=== PATIENT | female | born 1950 | race Caucasian/White ===

== ENCOUNTER → 2018-04-01 10:27 | Outpatient (CLI) | payer MEDICARE, OTHER, SELFPAY ==
--- NOTE | 2018-04-01 | DI.RAD.S_ITS ---
PROCEDURE: XR THORACIC SPINE 3V INDICATIONS: BACK PAIN TECHNIQUE: 2 views of the thoracic spine were acquired. COMPARISON: [facility], CT, CT CHEST ABDOMEN WITH CONTRAST, 06/23/2017, 16:14. FINDINGS: Bones: No fractures or dislocations. No suspicious bony lesions. 12 pairs of ribs are noted, and appear intact where visualized. A mild thoracolumbar junction compression fractures present, 25.5% height reduction when compared to the level immediately above. This appears located at T12. Soft tissues: No paravertebral stripe thickening. IMPRESSION: Central line from right sided approach appears in normal position. Surgical clips left hilar area. No osteolytic or blastic lesion is found over the thoracic spine. There is what appears to be a thoracolumbar junction compression fracture involving T12 which was not present during CT scanning 06/23/17, comprised of a redundantly inferior endplate impaction fracture, anterior 25.5% height reduction. Dictated by: Vasquez Craig M.D. on 04/01/2018 at 12:10 Approved by: Vasquez Craig M.D. on 04/01/2018 at 12:13
--- NOTE | 2018-04-01 | DI.RAD.S_ITS ---
PROCEDURE: XR LUMBAR SPINE 2-3V INDICATIONS: BACK PAIN TECHNIQUE: 3 views of the lumbar spine were acquired. COMPARISON: [facility], CT, ABDOMEN/PELVIS WITH CONTRAST, 12/05/2017, 12:15. [facility], CR, XR THORACIC SPINE 3V, 04/01/2018, 10:11. FINDINGS: Bones: 5 [id number] vertebrae are present. There is normal bony alignment. No vertebral body compression fractures. T12 mild inferior endplate compression fracture is present better seen by thoracic spine plain film imaging today, without associated osteolytic or blastic suspicious bony lesions. Soft tissues: Overlying bowel gas pattern is normal. No suspicious soft tissue calcifications. IMPRESSION: Please refer to the thoracic spine report from today documenting a acute or subacute appearing mild inferior endplate T12 compression fracture. That can be seen by this study also, was not present on prior CT scanning from earlier this year 12/05/17, and is not associated with retropulsion of bone fragments into the spinal canal. Dictated by: Vasquez Craig M.D. on 04/01/2018 at 12:14 Approved by: Vasquez Craig M.D. on 04/01/2018 at 12:16
== END ==
PROVIDERS: Visit Provider Internal Medicine
DX: M54.9 Dorsalgia, unspecified (principal); M48.54XA Collapsed vertebra, not elsewhere classified, thoracic region, initial encounter for fracture
CPT/HCPCS: 72072; 72100

== ENCOUNTER 2018-05-27 02:56 | Emergency (ER) | payer MEDICARE, OTHER, SELFPAY ==
[2018-05-27 03:00] VITALS: BP 188/95; PULSE 100; RESP 24; O2SAT 99; BMI 17.6
[2018-05-27 03:15] VITALS: BP 188/95; PULSE 112; RESP 36
--- NOTE | 2018-05-27 03:37 | ED_ITS ---
HPI - Altered Mental Status General Chief Complaint: Anxiety Stated Complaint: Anxiety Time Seen by Provider: 05/27/18 03:36 Source: patient, family and EMS Mode of arrival: ambulatory Limitations: no limitations History of Present Illness HPI narrative: The patient has been feeling anxious. complaint: other ( Anxiety) Onset (ago): day(s) ( 2) Timing confirmed by: spouse Severity: moderate Consistency of symptoms: waxing and waning Context: history of similar presentation and other ( patient has a history of anxiety disorder. She denies alcohol or drug abuse, change in medication, trauma, recent fever, liver disease, or seizure disorder.) Associated symptoms: denies other symptoms Treatments prior to arrival: other ( None) Related Data Home Medications Medication Instructions Recorded Confirmed mometasone-formoterol [Dulera] 2 puff INH BID #0 07/04/07 montelukast [Singulair] 10 mg PO QDAY #0 07/04/07 acetaminophen 325 mg PO Q4HP PRN #0 12/03/17 diphenhydramine-acetaminophen 1 tab PO HSP PRN #0 12/03/17 [Tylenol PM Extra Strength] oxycodone 5 ml PO Q6HP PRN #0 12/03/17 pantoprazole [Protonix] 40 mg PO QDAY #0 12/03/17 Previous Rx's Medication Instructions Recorded azithromycin [Zithromax] 250 mg PO SEE INSTRUCTIONS #6 tab 12/03/17 loratadine [Claritin] 10 mg PO QDAY #30 tab 12/03/17 ondansetron [Zofran ODT] 4 mg SUBLINGUAL Q6HP PRN #20 odt 12/05/17 promethazine 25 mg PO Q6HP PRN #15 tab 12/05/17 Allergies Allergy/AdvReac Type Severity Reaction Status Date / Time simvastatin [SIMVASTATIN] AdvReac Unknown LEG Unverified 12/31/17 12:04 CRAMPING sulfamethoxazole AdvReac Unknown DIARRHEA Unverified 12/31/17 12:04 [From BACTRIM] trimethoprim [From BACTRIM] AdvReac Unknown DIARRHEA Unverified 12/31/17 12:04 Review of Systems Review of Systems All systems reviewed & are unremarkable except as noted in HPI and below Constitutional Denies chills, Denies fever(s), Denies lethargy and Denies weakness Eyes Denies change in vision, Denies eye discharge, Denies irritation and Denies loss of vision ENT Ears, Nose, Mouth, and Throat: Denies change in voice, Denies neck pain and Denies sore throat Cardiovascular Denies chest pain, Denies irregular heart rhythm, Denies lightheadedness, Denies palpitations, Denies dyspnea, Denies dyspnea on exertion and Denies orthopnea Respiratory Denies cough, Denies dyspnea, Denies dyspnea on exertion and Denies wheezing Gastrointestinal Gastrointestinal: Denies abdominal pain, Denies change in bowel habits, Denies diarrhea, Denies nausea and Denies vomiting Genitourinary Denies hematuria, Denies flank pain, Denies urinary incontinence and Denies urinary urgency Musculoskeletal Denies neck pain Integumentary/Breasts Denies pruritus, Denies erythema, Denies rash and Denies wounds Neurologic Denies confusion, Denies loss of vision and Denies weakness Psychiatric Denies anxiety, Denies confusion, Denies depression, Denies homicidal ideation and Denies suicidal ideation Endocrine Denies palpitations Hematologic/Lymphatic Denies easy bruising Allergic/Immunologic Denies wheezing Exam Initial Vital Signs Initial Vital Signs: Vital Signs Pulse Rate 100 H 05/27/18 03:00 Respiratory Rate 24 05/27/18 03:00 Blood Pressure 188/95 H 05/27/18 03:00 Pulse Oximetry 99 05/27/18 03:00 Const General: cooperative and well developed Nutritional Appearance: well nourished Orientation: alert, awake, oriented x3 and not confused [facility] Head: normocephalic and atraumatic Ears: external ears normal Nose: external nose normal and No nasal discharge Face and sinus: face symmetric and No dry mucous membranes Mouth: oral mucosae normal and moist mucous membranes Eyes General: appearance normal, both eyes and all related structures Eyelids: eyelids normal Conjunctivae: conjunctivae normal Sclera: sclerae normal Pupils: PERRL EOM: EOM intact bilaterally Neck Neck: normal visual inspection, trachea midline, No lymphadenopathy, No midline deformity and No JVD Lymphatic: No lymphedema Chest Chest: normal inspection of the chest Resp Effort & Inspection: normal respiratory effort, able to speak in complete sentences, no respiratory distress and no use of accessory muscles Auscultation: clear to auscultation bilaterally, no rales, no rhonchi and no wheezes Cardio Rate: regular rate Rhythm: regular rhythm Heart Sounds: no click, no gallops, no murmurs and no rubs Pulses: normal peripheral pulses GI Inspection: non-distended Palpation: soft, no hepatosplenomegaly, No guarding, No pulsatile mass and No tender Auscultation: normal bowel sounds Back/Spine/Pelvis Back: No CVA tenderness Cervical Spine: cervical ROM normal and No pain with cervical ROM Thoracic/Lumbar Spine: thoracic and lumbar spine normal to inspection Skin General: no rashes or lesions noted, No jaundice and No petechiae Neuro General: alert, oriented x3, gait normal and no focal motor deficits Speech: speech normal Extrem General: full ROM, no clubbing, cyanosis or edema, no pedal edema and no calf tenderness Psych Appearance: well kempt Mental Status: mental status grossly normal ( the patient is alert and oriented x3.) Mood: anxious mood Attitude: cooperative Thought Content: normal and suicidality Judgment: judgment good Course Hospital Course: Patient was treated symptomatically, and worked up for her sense of anxiety. Workup was negative, and no emergent cause of patient's symptoms was found. Orders Ordered: Discontinued Medications Sodium Chloride (Normal Saline 0.9%) 1,000 mls @ 1,000 mls/hr IV BOLUS ONE Stop: 05/27/18 04:43 Last Infusion: 05/27/18 05:30 Dose: 0 mls/hr Admin: 05/27/18 04:28 Dose: 1,000 mls/hr Lorazepam (Ativan) 1 mg IV NOW ONE Stop: 05/27/18 03:45 Last Admin: 05/27/18 04:27 Dose: 1 mg Metoprolol Tartrate (Lopressor) 50 mg PO NOW ONE Stop: 05/27/18 04:44 Last Admin: 05/27/18 05:45 Dose: 50 mg Ondansetron HCl (Zofran) 4 mg IV NOW ONE Stop: 05/27/18 03:45 Last Admin: 05/27/18 04:29 Dose: 4 mg MDM - Altered Mental Status Medical Records Attestation: I reviewed the patient's medical records. Lab Data Attestation: I reviewed the patient's lab results. Result diagrams: 05/27/18 03:50 05/27/18 03:50 Lab Results 05/27/18 05/27/18 05/27/18 Range/Units 03:50 03:50 04:08 WBC 10.9 (4.5-11.0) X10^3/uL RBC 3.77 L (4.0-5.2) X10^6/uL Hgb 11.9 L (12.0-16.0) g/dL Hct 35.4 L (36-46) % MCV 93.7 (80-100) fL MCH 31.5 (26-34) PG MCHC 33.6 (30-36) % RDW 15.0 H (11.6-14.8) % Plt Count 524 H (150-400) X10^3/uL Neut % (Auto) 88.4 H (50-75) % Lymph % (Auto) 3.8 L (25-40) % [place] % (Auto) 7.0 (3-14) % Eos % (Auto) 0.0 L (2-4) % Baso % (Auto) 0.8 (0-2) % Neut # (Auto) 9700 H (0328-7371) /uL Sodium 137 (137-145) mmol/L Potassium 3.3 L (3.4-5.1) mmol/L Chloride 98 (98-107) mmol/L Carbon Dioxide 24 (22-32) mmol/L BUN 22 H (7-17) mg/dL Creatinine 0.50 L (0.52-1.04) mg/dL Estimated GFR > 60.0 (>60) mL/min BUN/Creatinine Ratio 44.0 H (6-22) Glucose 201 H (80-110) mg/dL Calcium 9.8 (8.4-10.2) mg/dL Total Bilirubin 1.2 (0.2-1.3) mg/dL AST 31 (14-36) IU/L ALT 30 (9-52) IU/L Alkaline Phosphatase 213 H (38-126) U/L Total Protein 8.5 H (6.3-8.2) g/dL Albumin 4.6 (3.5-5.0) g/dL Globulin 3.9 (1.7-4.1) g/dL Albumin/Globulin Ratio 1.2 (1.0-2.8) Urine Color Yellow Urine Appearance Clear Urine pH 7.5 (4.5-8.0) Ur Specific [place] 1.020 (1.000-1.035) Urine Protein 2+ H (Negative) Urine Glucose (UA) Trace (Normal) g/dL Urine Ketones 2+ H (NEGATIVE) Urine Occult Blood Trace-lysed (Negative) Urine Nitrate Negative (Negative) Urine Bilirubin Negative (NEGATIVE) Urine Urobilinogen 0.2 (0.2) E.U./dL Ur Leukocyte Esterase Negative (NEGATIVE) Urine RBC None seen (0-5/HPF) Urine WBC 0-1/hpf (0-5/HPF) Ur Squamous Epith Cells 0-1 /hpf Urine Bacteria None seen (None) Ur Culture Indicated? Cult not indicated Micro UA Comment Not Reportable Discharge Plan Departure Patient Disposition: Home Clinical Impression: Acute anxiety, Nausea & vomiting Discharge Date/Time: 05/27/18 06:45 Interventions: ED Discharge Assessment Last Done: 05/27/18 06:45 Instructions: DI for Anxiety -- Adult Prescriptions: No Action montelukast [Singulair] 10 MG tablet 10 mg PO QDAY Qty: 0 RF: 0 mometasone-formoterol [Dulera] 200 MCG/5 MCG HFA aerosol inhaler 2 puff INH BID Qty: 0 RF: 0 acetaminophen 325 MG tablet 325 mg PO Q4HP PRNQty: 0 RF: 0 oxycodone 5 MG/5 ML solution 5 ml PO Q6HP PRNQty: 0 RF: 0 pantoprazole [Protonix] 40 MG tablet,delayed release (DR/EC) 40 mg PO QDAY Qty: 0 RF: 0 diphenhydramine-acetaminophen [Tylenol PM Extra Strength] 500 MG/25 MG tablet 1 tab PO HSP PRNQty: 0 RF: 0 azithromycin [Zithromax] 250 MG tablet 250 mg PO SEE INSTRUCTIONS Qty: 6 RF: 0 loratadine [Claritin] 10 MG tablet 10 mg PO QDAY Qty: 30 RF: 0 promethazine 25 MG tablet 25 mg PO Q6HP PRNQty: 15 RF: 0 ondansetron [Zofran ODT] 4 MG tablet,disintegrating 4 mg Sublingual Q6HP PRNQty: 20 RF: 0 Referrals: Jefe Saeed MD [Primary Care Provider] - (Call for a follow-up appointment.)
[2018-05-27 04:06] LABS: Add Manual Diff / Slide Review NO; Basophils Percent Auto 0.8 % (0-2); Hematocrit 35.4 % (36-46); Hemoglobin 11.9 g/dL (12.0-16.0); Lymphocytes Percent Auto 3.8 % (25-40); Mean Corpuscular HGB Conc 33.6 % (30-36); Mean Corpuscular Hemoglobin 31.5 PG (26-34); Mean Corpuscular Volume 93.7 fL (80-100); Neutrophils Absolute Auto 9700 /uL (3000-5900); Neutrophils Percent Auto 88.4 % (50-75); Platelet Count 524 X10^3/uL (150-400); Red Blood Cell Count 3.77 X10^6/uL (4.0-5.2); White Blood Cell Count 10.9 X10^3/uL (4.5-11.0)
[2018-05-27 04:13] LABS: Alanine Aminotransferase 30 IU/L (9-52); Albumin 4.6 g/dL (3.5-5.0); Albumin Globulin Ratio 1.2 (1.0-2.8); Alkaline Phosphatase 213 U/L (38-126); Aspartate Aminotransferase 31 IU/L (14-36); Bilirubin Total 1.2 mg/dL (0.2-1.3); Blood Urea Nitrogen 22 mg/dL (7-17); Calcium 9.8 mg/dL (8.4-10.2); Carbon Dioxide 24 mmol/L (22-32); Chloride 98 mmol/L (98-107); Estimated Glomerular Filt Rate > 60.0 mL/min (>60); Globulin 3.9 g/dL (1.7-4.1); Glucose 201 mg/dL (80-110); HEMOLYSIS < 15 (0-50); Potassium 3.3 mmol/L (3.4-5.1); Sodium 137 mmol/L (137-145); Total Protein 8.5 g/dL (6.3-8.2)
[2018-05-27 04:14] LABS: Bacteria Urine None Seen; RBC Urine None Seen (0-5/HPF)
[2018-05-27 04:15] VITALS: BP 181/96; PULSE 109; RESP 32; TEMP 36.6
[2018-05-27 04:15] LABS: Appearance Urine UA CLEAR; Bilirubin Urine UA NEGATIVE (NEGATIVE); Color Urine UA YELLOW; Glucose Urine UA TRACE g/dL (Normal); Ketones Urine UA 2+ (NEGATIVE); Leukocyte Esterase Urine UA NEGATIVE (NEGATIVE); Nitrite Urine UA Negative (Negative); Occult Blood Urine UA TRACE-LYSED (Negative); Protein Urine UA 2+ (Negative); Urobilinogen Urine UA 0.2 E.U./dL (0.2); pH Urine UA 7.5 (4.5-8.0)
[2018-05-27] MEDS: LORazepam 2 MG/ML SYRINGE 1 MG IV (04:27)
[2018-05-27] MEDS: SODIUM CHLORIDE 0.9% 1,000 ML 1000 ML IV (04:28)
[2018-05-27] MEDS: ONDANSETRON 4 MG/2 ML INJ IV (04:29)
[2018-05-27 04:30] LABS: Culture Indicated Urine Cult Not Indicated; Squamous Epithelial Cell Urine 0-1 /HPF; WBC Urine 0-1/HPF (0-5/HPF)
[2018-05-27 05:15] VITALS: BP 186/69; PULSE 114; RESP 25
[2018-05-27] MEDS: METOPROLOL 50 MG TABLET PO (05:45)
[2018-05-27 06:15] VITALS: BP 182/77; PULSE 106; RESP 24; TEMP 37.1; O2SAT 99
--- NOTE | 2018-05-27 07:41 | PC.NURSE ---
port to right chest, heparinized and dc'd per protocol.
--- NOTE | 2018-05-27 07:46 | PC.NURSE ---
)500 pt. to be discharged. This RN is uncertain what to pack the portacath with so will look up micaela
== END 2018-05-27 06:45 | disposition home or self-care (01) ==
PROVIDERS: Emergency Provider Emergency Medicine; Family Provider Internal Medicine; PCP Internal Medicine
DX: F41.9 Anxiety disorder, unspecified (principal); R11.2 Nausea with vomiting, unspecified
CPT/HCPCS: 80053; 81001; 85025; 96361; 96374; 96375; 99283; 99284; J2060; J2405

== ENCOUNTER → 2018-06-24 08:11 | Outpatient (CLI) | payer MEDICARE, OTHER, SELFPAY ==
--- NOTE | 2018-06-24 | DI.RAD.S_ITS ---
This blank DEXA report has been sent in error by the PACS system. The correct and complete report will be forthcoming in 1-2 days. Thank you for your patience and understanding. Dictated by: Yolie Hurst MD, PhD on 06/24/2018 at 11:13 Approved by: Yolie Hurst MD, PhD on 06/24/2018 at 11:13
[2018-06-24 08:55] LABS: Cholesterol 199 mg/dL (140-199); HDL Cholesterol 71 mg/dL (40-60); LDL Cholesterol Calculated 92 mg/dL (<100); Triglycerides 181 mg/dL (35-150)
[2018-06-24 09:13] LABS: Vitamin D 25 Hydroxy (D3) 37.5 ng/mL (30.0-100.0)
== END ==
PROVIDERS: PCP Internal Medicine; Visit Provider Internal Medicine
DX: Z00.00 Encounter for general adult medical examination without abnormal findings (principal); M81.0 Age-related osteoporosis without current pathological fracture; Z78.0 Asymptomatic menopausal state; Z90.722 Acquired absence of ovaries, bilateral; Z87.891 Personal history of nicotine dependence
CPT/HCPCS: 36415; 77080; 80061; 82306

== ENCOUNTER 2018-07-02 22:09 | Inpatient (IN) | payer MEDICARE, OTHER, SELFPAY ==
--- NOTE | 2018-07-02 22:15 | DI.CT.S_ITS ---
PROCEDURE: CT HEAD/BRAIN WO CON INDICATIONS: seizure x 2, no prior history, recent vomiting and diarrhea TECHNIQUE: Noncontrast 4.5 mm thick angled axial sections acquired from the foramen magnum to the vertex, with coronal and sagittal reformats. For radiation dose reduction, the following was used: automated exposure control, adjustment of mA and/or kV according to patient size. COMPARISON: None. FINDINGS: Image quality: Excellent. CSF spaces: Basal cisterns are patent. No extra-axial fluid collections. The ventricles are symmetric in size and shape. Brain: No intracranial bleeds or masses. There is cerebral volume loss for age, with resultant ventricular and sulcal prominence. There are periventricular and deep white matter chronic small vessel ischemic changes. There is intracranial internal carotid artery atherosclerosis. 1.5 cm lytic focus seen within the right frontoparietal calvarium image 20 series 3 is nonspecific in the absence of any relevant prior studies. Sinuses: Visualized sinuses and mastoids are clear. IMPRESSION: No acute intracranial process. Lytic focus with involving the right frontoparietal skull. Technically, this lesion is indeterminate and cannot exclude metastatic possibilities. As clinically warranted, further evaluation with bone scan could be performed. Dictated by: Woo Gonzáles M.D. on 07/03/2018 at 7:21 Approved by: Woo Gonzáles M.D. on 07/03/2018 at 7:23
--- NOTE | 2018-07-02 22:34 | DI.RAD.S_ITS ---
PROCEDURE: XR CHEST 1V INDICATIONS: seizure TECHNIQUE: One view of the chest was acquired. COMPARISON: [facility], , CHEST 1 VIEW, 12/05/2017, 10:59. FINDINGS: Surgical changes and devices: Left chest port with the tip projecting in the lower SVC. Vertebroplasty noted. Surgical clips projecting the base of neck. Lungs and pleura: No pleural effusions or pneumothorax. No acute consolidation. There is scattered subsegmental atelectasis and/or scarring Mediastinum: Mediastinal contours appear normal. Heart size is normal. Bones and chest wall: No suspicious bony lesions. Overlying soft tissues appear unremarkable. IMPRESSION: No acute disease. Dictated by: Woo Gonzáles M.D. on 07/03/2018 at 7:20 Approved by: Woo Gonzáles M.D. on 07/03/2018 at 7:21
--- NOTE | 2018-07-02 22:34 | DI.RAD.S_ITS ---
PROCEDURE: XR ABDOMEN 1V INDICATIONS: vomiting, seizure TECHNIQUE: One view of the abdomen acquired. COMPARISON: [facility], CR, XR CHEST 1V, 07/02/2018, 22:38. [facility], CR, ABDOMEN 1 VIEW, 12/03/2017, 10:07. FINDINGS: Surgical changes and devices: Vertebroplasty. Bowel: Bowel gas pattern is normal. There are presumed multiple skin folds projecting over the chest abdomen and pelvis. Mild stool Soft tissues: No suspicious abdominal calcifications. Visualized solid organ contours appear normal in size. Bones: No suspicious bony lesions. Discogenic changes and lateral curvature of the spine. Bilateral hip joint degeneration. IMPRESSION: No evidence of bowel obstruction. Mild stool Dictated by: Woo Gonzáles M.D. on 07/03/2018 at 8:05 Approved by: Woo Gonzáles M.D. on 07/03/2018 at 8:08
--- NOTE | 2018-07-02 22:36 | ED.SEIZURE ---
HPI - Seizure General Chief Complaint: Weakness Stated Complaint: N/V x2 days with weakness Time Seen by Provider: 07/02/18 22:23 Source: family () and EMS Mode of arrival: EMS Limitations: altered mental status History of Present Illness HPI Narrative: This is a 67-year-old female who comes to the emergency department with complaint of seizure-like activity. Patient's states that he was at home he noticed that she sort of locked up Um and then started shaking and a generalized sort of manner which he describes is of tonic colonic. Patient symptoms lasted about 20-30 seconds and then afterwards she was ?peaceful?. He states that she did not regain her normal level of consciousness. EMS states that EN route she had a 2nd event describes similar symptoms. Patient has had 1 similar episode in the past which the states she was actually seen and she had a concussion and injuries secondary to this. This was in [place] and he states that they were told it was not a seizure but that she passed out. This was in April. Patient has been having persistent vomiting over the last several days and he states she has had difficulty keeping any fluids down. She has also had some episodes of diarrhea. Patient's states that this is quite common and she has a history of esophageal cancer with subsequent surgeries. She is currently in remission but still is quite thin. He states that this evening and for the last several days she has been very anxious which seems to usually precipitated vomiting. This evening she became sort of very upset and he describes is incoherent. He states she was walking and moving without any difficulty he did notice any slurred speech but that she was not making any sense and was not very rational. He describes these events is happening fairly frequently and relates some to anxiety and mental health issues. He states she has not complained of any headaches or vision changes recently. She has not been complaining of any chest pain or shortness of breath or any abdominal pain. He states that she has not had any urinary changes that he is aware of. He states that she has been told that her blood pressure and heart rate can sometimes get very high particularly when she is upset she does not have any cardiac history that he is aware of. She did have a kyphoplasty on the last year for a fracture that occurred after coughing. Patient received 5 mg of Versed EN route with EMS. Related Data Home Medications Medication Instructions Recorded Confirmed montelukast [Singulair] 10 mg PO QDAY #0 07/04/07 07/02/18 acetaminophen 325 mg PO Q4HP PRN #0 12/03/17 07/02/18 diphenhydramine-acetaminophen 1 tab PO HSP PRN #0 12/03/17 07/02/18 [Tylenol PM Extra Strength] pantoprazole [Protonix] 40 mg PO QDAY #0 12/03/17 07/02/18 escitalopram oxalate 20 mg PO BID 07/02/18 07/02/18 hydrocodone-acetaminophen 1 tab PO Q4-6H PRN 07/02/18 07/02/18 lorazepam 1 mg PO QD-BID PRN 07/02/18 07/02/18 Previous Rx's Medication Instructions Recorded ondansetron [Zofran ODT] 4 mg SUBLINGUAL Q6HP PRN #20 odt 12/05/17 Allergies Allergy/AdvReac Type Severity Reaction Status Date / Time simvastatin [SIMVASTATIN] AdvReac Unknown LEG Verified 07/02/18 23:26 CRAMPING sulfamethoxazole AdvReac Unknown DIARRHEA Verified 07/02/18 23:26 [From BACTRIM] trimethoprim [From BACTRIM] AdvReac Unknown DIARRHEA Verified 07/02/18 23:26 Review of Systems Review of Systems All systems reviewed & are unremarkable except as noted in HPI and below and unobtainable due to mental status PFSH Medical History Upper GI bleed (Acute) Post surgical complication (Acute) Acute anxiety (Inactive) Surgical History History of esophageal surgery (Acute) History of kyphoplasty (Acute) No pertinent past surgical history (Acute) Social History household members: spouse housing: house Smoking Status: Never smoker Comment: no etoh x 1 year 2nd esophageal cancer/treatment. No illicit. Exam Narrative Exam Narrative: GEN: Thin female, patient is responsive to sternal rub, patient appears to be in moderate distress. HEENT: Atraumatic, pupils are 4 mm bilaterally and equal round reactive to light, extraocular movements are intact, nares are clear, TMs are clear with no fluid, there is no conjunctival pallor. Throat is clear without any exudates, erythema, tonsillar enlargement or uvular deviation HEART: Regular rate and rhythm without murmur, clicks, rubs. LUNGS:Lungs clear to auscultation, no wheezes, rales, crackles, chest moves symmetrically ABD:bowel sounds normal, soft, non-tender, no guarding, rebound, rigidity, no masses noted, no hepatosplenomegaly :No CVA tenderness MSCL: Non-tender NEURO:CN 2-12 intact, sensation normal, reflexes 2/4 upper and lower extremities. Patient altered unable to do full neuro exam. Initial Vital Signs Initial Vital Signs: Vital Signs Pulse Rate 120 H 07/02/18 23:11 Respiratory Rate 20 07/02/18 23:11 Blood Pressure 150/90 H 07/02/18 23:11 Pulse Oximetry 97 07/02/18 23:11 Scores GCS Shy coma scale eye opening: To pressure [place] coma scale verbal response: Confused [place] coma scale motor response: Localising [place] coma scale total score: 11 Citation: GCS on initial arrival is 11. GCS @ 12:45am is E=4, V=4, M=6 for total=14 Course Orders Ordered: ED Orders 07/02/18 22:14 EKG-12 Lead Stat 07/02/18 22:15 CT head/brain wo con Stat 07/02/18 22:21 Complete Blood Count AUTO DIFF Stat Comprehensive Metabolic Panel Stat Ethanol (ETOH) Stat Magnesium Stat Prolactin Stat 07/02/18 22:34 XR abdomen 1V Stat XR chest 1V Stat 07/03/18 00:45 Urinalysis Sreen (Dip Only) Stat Urine Culture Stat Urine Drug Screen, Rapid Stat Urine Microscopic Stat Potassium Chloride 40 meq/ (Sodium Chloride) 520 mls @ 130 mls/hr IV NOW ONE Stop: 07/03/18 03:44 Last Infusion: 07/03/18 02:56 Dose: 130 mls/hr Admin: 07/03/18 00:10 Dose: 130 mls/hr Sodium Chloride (Normal Saline 0.9%) 1,000 mls @ 125 mls/hr IV CONT MIKEY Discontinued Medications Sodium Chloride (Normal Saline 0.9%) 1,000 mls @ 1,000 mls/hr IV BOLUS ONE Stop: 07/02/18 23:13 Last Admin: 07/02/18 22:37 Dose: 1,000 mls/hr Levetiracetam 1,000 mg/ Sodium (Chloride) 110 mls @ 440 mls/hr IV NOW ONE Stop: 07/03/18 02:01 Levetiracetam 1,000 mg/ Sodium (Chloride) 110 mls @ 440 mls/hr IV NOW ONE Stop: 07/03/18 02:51 Reevaluation(s) Reevaluation #1: Patient is able to tell me her name and some basic information, she still is somewhat confused. She is more alert. She has been cooperative here in the ED with us. Time: 12:45 Reevaluation #2: Patient continues to be increasingly alert although still confused. She has not had any additional seizure activity in the department. Time: 01:50 Consultations Consultation #1: Dr. Aceves at [facility] with Neurology. Recommends Keppra loading 1 gram then 750mg Q 12 hours as inpatient and then 750 mg p.o. Q 12 as outpatient. MRI recommended in am. EEG can be done outpatient. Time: 02:02 Consultation #2: Dr. Noyola accepts patient. Discussed her head CT, chest x-ray and abdominal x-ray. Lab findings. Patient has possibly some psychiatric illness as well or possibly dementia with some kind of intermittent confusion per the . She had 2 episodes witnessed seizure-like activity by initially and then 1 by EMS. Patient has not had any more seizure activity in the department. Patient has not received Keppra yet but has been ordered. Dr. Noyola asked that we do bridging orders Vital Signs - 8 hr 07/02/18 23:11 07/02/18 23:15 07/02/18 23:58 Pulse Rate 120 H 105 H 119 H Respiratory Rate 20 20 22 Blood Pressure [Left Arm] 150/90 H 69/43 L 190/106 H Pulse Oximetry 97 07/03/18 01:11 07/03/18 02:16 Pulse Rate 106 H 120 H Respiratory Rate 20 22 Blood Pressure [Left Arm] 144/93 H 164/102 H Pulse Oximetry MDM - Seizure Lab Data Attestation: I reviewed the patient's lab results. Result diagrams: 07/02/18 22:21 07/02/18 22:21 Lab Results 07/02/18 07/02/18 07/03/18 Range/Units 22:21 22:21 00:45 WBC 7.8 (4.5-11.0) X10^3/uL RBC 3.72 L (4.0-5.2) X10^6/uL Hgb 11.5 L (12.0-16.0) g/dL Hct 34.5 L (36-46) % MCV 92.7 (80-100) fL MCH 30.9 (26-34) PG MCHC 33.3 (30-36) % RDW 13.7 (11.6-14.8) % Plt Count 345 (150-400) X10^3/uL Neut % (Auto) 89.9 H (50-75) % Lymph % (Auto) 4.4 L (25-40) % [place] % (Auto) 3.6 (3-14) % Eos % (Auto) 1.6 L (2-4) % Baso % (Auto) 0.5 (0-2) % Neut # (Auto) 7000 H (1364-6489) /uL Sodium 138 (137-145) mmol/L Potassium 3.2 L (3.4-5.1) mmol/L Chloride 95 L (98-107) mmol/L Carbon Dioxide 21 L (22-32) mmol/L BUN 16 (7-17) mg/dL Creatinine 0.60 (0.52-1.04) mg/dL Estimated GFR > 60.0 (>60) mL/min BUN/Creatinine Ratio 26.7 H (6-22) Glucose 186 H (80-110) mg/dL Calcium 9.4 (8.4-10.2) mg/dL Magnesium 1.6 (1.6-2.3) mg/dL Total Bilirubin 0.6 (0.2-1.3) mg/dL AST 38 H (14-36) IU/L ALT 30 (9-52) IU/L Alkaline Phosphatase 104 (38-126) U/L Total Protein 7.3 (6.3-8.2) g/dL Albumin 4.2 (3.5-5.0) g/dL Globulin 3.1 (1.7-4.1) g/dL Albumin/Globulin Ratio 1.4 (1.0-2.8) Prolactin 29.5 H (3.0-18.6) ng/mL Urine Color Yellow Urine Appearance Clear Urine pH 7.5 (4.5-8.0) Ur Specific [place] 1.015 (1.000-1.035) Urine Protein Trace H (Negative) Urine Glucose (UA) Negative (Normal) g/dL Urine Ketones 1+ H (NEGATIVE) Urine Occult Blood Negative (Negative) Urine Nitrate Negative (Negative) Urine Bilirubin Negative (NEGATIVE) Urine Urobilinogen 0.2 (0.2) E.U./dL Ur Leukocyte Esterase Trace H (NEGATIVE) Urine RBC 0-1/hpf (0-5/HPF) Urine WBC 0-1/hpf (0-5/HPF) Ur Squamous Epith Cells 0-1 /hpf Urine Bacteria Few (2-10) H (None) Ur Culture Indicated? Specimen cultured Micro UA Comment Not Reportable Urine Opiates Screen (Negative) Ur Oxycodone Screen (Negative) Urine Methadone Screen (Negative) Ur Barbiturates Screen (Negative) U Tricyclic Antidepress (Negative) Ur Phencyclidine Scrn (Negative) Ur Amphetamines Screen (Negative) U Methamphetamines Scrn (Negative) Ur MDMA Scrn (Ecstasy) (Negative) U Benzodiazepines Scrn (Negative) Urine Cocaine Screen (Negative) U Marijuana (THC) Screen (Negative) Ethyl Alcohol < 10 mg/dL 07/03/18 Range/Units 00:45 WBC (4.5-11.0) X10^3/uL RBC (4.0-5.2) X10^6/uL Hgb (12.0-16.0) g/dL Hct (36-46) % MCV (80-100) fL MCH (26-34) PG MCHC (30-36) % RDW (11.6-14.8) % Plt Count (150-400) X10^3/uL Neut % (Auto) (50-75) % Lymph % (Auto) (25-40) % [place] % (Auto) (3-14) % Eos % (Auto) (2-4) % Baso % (Auto) (0-2) % Neut # (Auto) (3710-5457) /uL Sodium (137-145) mmol/L Potassium (3.4-5.1) mmol/L Chloride (98-107) mmol/L Carbon Dioxide (22-32) mmol/L BUN (7-17) mg/dL Creatinine (0.52-1.04) mg/dL Estimated GFR (>60) mL/min BUN/Creatinine Ratio (6-22) Glucose (80-110) mg/dL Calcium (8.4-10.2) mg/dL Magnesium (1.6-2.3) mg/dL Total Bilirubin (0.2-1.3) mg/dL AST (14-36) IU/L ALT (9-52) IU/L Alkaline Phosphatase (38-126) U/L Total Protein (6.3-8.2) g/dL Albumin (3.5-5.0) g/dL Globulin (1.7-4.1) g/dL Albumin/Globulin Ratio (1.0-2.8) Prolactin (3.0-18.6) ng/mL Urine Color Urine Appearance Urine pH (4.5-8.0) Ur Specific [place] (1.000-1.035) Urine Protein (Negative) Urine Glucose (UA) (Normal) g/dL Urine Ketones (NEGATIVE) Urine Occult Blood (Negative) Urine Nitrate (Negative) Urine Bilirubin (NEGATIVE) Urine Urobilinogen (0.2) E.U./dL Ur Leukocyte Esterase (NEGATIVE) Urine RBC (0-5/HPF) Urine WBC (0-5/HPF) Ur Squamous Epith Cells Urine Bacteria (None) Ur Culture Indicated? Micro UA Comment Urine Opiates Screen Positive H (Negative) Ur Oxycodone Screen Negative (Negative) Urine Methadone Screen Negative (Negative) Ur Barbiturates Screen Negative (Negative) U Tricyclic Antidepress Positive H (Negative) Ur Phencyclidine Scrn Negative (Negative) Ur Amphetamines Screen Negative (Negative) U Methamphetamines Scrn Negative (Negative) Ur MDMA Scrn (Ecstasy) Negative (Negative) U Benzodiazepines Scrn Positive H (Negative) Urine Cocaine Screen Negative (Negative) U Marijuana (THC) Screen Negative (Negative) Ethyl Alcohol mg/dL Point of Care Testing Glucose POC [address] scan - head: Radiologist's impression: Diffuse cortical atrophy. There is no ventriculomegaly. There is no shift of midline structures, extra-axial fluid collections, parenchymal mass lesions or hemorrhage. Sinuses appear grossly intact. No acute osseous pathology is identified. There is calcified plaque within the internal carotid arteries consistent with arterial sclerosis. Chest x-ray: Attestation: I personally reviewed and interpreted this imaging study as follows: My impression: No infiltration or atelectasis, mediastinum appears normal. No pneumothorax. No rib fractures. Patient does have Port-A-Cath in place. Abdominal x-ray: Attestation: I personally reviewed and interpreted this imaging study as follows: My impression: no free air noted. No air fluid levels noted. ECG Data Attestation: I personally reviewed and interpreted this ECG as follows: Interpretation: Sinus tachycardia with a rate of 100 P are 140 QRS of [address] segments appear similar to prior EKG from 04/30/2017. Patient does have a Q-wave in 2 and AVF. Also present on prior EKG. Discharge Plan Departure Patient Disposition: Admitted as Observation Clinical Impression: Seizure Discharge Date/Time: 07/03/18 03:00 Interventions: ED Discharge Assessment Last Done: 07/03/18 02:58 Admit Date/Time: 07/03/18 02:37 Admit Provider: Arthur Noyola
[2018-07-02] MEDS: SODIUM CHLORIDE 0.9% 1,000 ML 1000 ML IV (22:37)
[2018-07-02 22:40] LABS: Add Manual Diff / Slide Review NO; Basophils Percent Auto 0.5 % (0-2); Eosinophils Percent Auto 1.6 % (2-4); Hematocrit 34.5 % (36-46); Hemoglobin 11.5 g/dL (12.0-16.0); Lymphocytes Percent Auto 4.4 % (25-40); Mean Corpuscular HGB Conc 33.3 % (30-36); Mean Corpuscular Hemoglobin 30.9 PG (26-34); Mean Corpuscular Volume 92.7 fL (80-100); Monocytes Percent Auto 3.6 % (3-14); Neutrophils Absolute Auto 7000 /uL (3000-5900); Neutrophils Percent Auto 89.9 % (50-75); Platelet Count 345 X10^3/uL (150-400); Red Blood Cell Count 3.72 X10^6/uL (4.0-5.2); Red Cell Distribution Width 13.7 % (11.6-14.8); White Blood Cell Count 7.8 X10^3/uL (4.5-11.0)
[2018-07-02 22:51] LABS: Alanine Aminotransferase 30 IU/L (9-52); Albumin 4.2 g/dL (3.5-5.0); Albumin Globulin Ratio 1.4 (1.0-2.8); Alkaline Phosphatase 104 U/L (38-126); BUN Creatinine Ratio 26.7 (6-22); Bilirubin Total 0.6 mg/dL (0.2-1.3); Blood Urea Nitrogen 16 mg/dL (7-17); Calcium 9.4 mg/dL (8.4-10.2); Carbon Dioxide 21 mmol/L (22-32); Chloride 95 mmol/L (98-107); Estimated Glomerular Filt Rate > 60.0 mL/min (>60); Globulin 3.1 g/dL (1.7-4.1); Glucose 186 mg/dL (80-110); HEMOLYSIS < 15 (0-50); Magnesium 1.6 mg/dL (1.6-2.3); Potassium 3.2 mmol/L (3.4-5.1); Sodium 138 mmol/L (137-145); Total Protein 7.3 g/dL (6.3-8.2)
[2018-07-02 22:58] LABS: Aspartate Aminotransferase 38 IU/L (14-36)
[2018-07-02 23:06] LABS: Ethanol (ETOH) < 10 mg/dL
[2018-07-02 23:11] VITALS: BP 150/90; PULSE 120; RESP 20; O2SAT 97
--- NOTE | 2018-07-02 23:13 | PC.NURSE ---
She now opens her eyes spontaneously.her speech is clear.
[2018-07-02 23:15] VITALS: BP 69/43; PULSE 105; RESP 20
--- NOTE | 2018-07-02 23:15 | PC.NURSE ---
She has been on continuous end tidal co2 monitoring with readings in the upper 20's.
[2018-07-02 23:58] VITALS: BP 190/106; PULSE 119; RESP 22
[2018-07-03] VITALS (15 sets, daily range): BP systolic 129–176; BP diastolic 87–115; PULSE 97–134; RESP 20–34; TEMP 37.2–38.1; O2SAT 94–99; BMI 15.4
[2018-07-03] MEDS: POTASSIUM CHLORIDE 40 MEQ in SODIUM CHLORIDE 0.9% 500 ML 130 ML IV (00:10)
[2018-07-03 00:39] LABS: Prolactin 29.5 ng/mL (3.0-18.6)
[2018-07-03 01:13] LABS: Appearance Urine UA CLEAR; Bilirubin Urine UA NEGATIVE (NEGATIVE); Color Urine UA YELLOW; Glucose Urine UA NEGATIVE (Normal); Ketones Urine UA 1+ (NEGATIVE); Leukocyte Esterase Urine UA TRACE (NEGATIVE); Nitrite Urine UA Negative (Negative); Occult Blood Urine UA NEGATIVE (Negative); Protein Urine UA TRACE (Negative); Specific Gravity Urine UA 1.015 (1.000-1.035); Urobilinogen Urine UA 0.2 E.U./dL (0.2); pH Urine UA 7.5 (4.5-8.0)
--- NOTE | 2018-07-03 01:14 | PC.NURSE ---
Her field start iv she accidentally pulled out patent and intact,dressing to site after.l hand site.I inserted a new 22 gauge in r hand and later accessed her r chest power port with sterile technique per our protocol.
[2018-07-03 01:21] LABS: Urine Amphetamines Negative (Negative); Urine Barbiturates Negative (Negative); Urine Benzodiazepines Positive (Negative); Urine Cocaine Negative (Negative); Urine MDMA Negative (Negative); Urine Methadone Negative (Negative); Urine Methamphetamines Negative (Negative); Urine Morphine/Opi cutoff 2000 Positive (Negative); Urine Oxycodone Negative (Negative); Urine Phencyclidine Negative (Negative); Urine Tetrahydrocannabinol Negative (Negative); Urine Tricyclic Antidepressant Positive (Negative)
[2018-07-03 01:29] LABS: Bacteria Urine Few (2-10); Culture Indicated Urine Specimen Cultured; RBC Urine 0-1/HPF (0-5/HPF); Squamous Epithelial Cell Urine 0-1 /HPF; WBC Urine 0-1/HPF (0-5/HPF)
[2018-07-03] MEDS: levETIRAcetam 1,000 MG in SODIUM CHLORIDE 0.9% 100 ML 440 ML IV (03:00)
[2018-07-03] MEDS: LORazepam 2 MG/ML SYRINGE 1 MG IV ×3 (03:00→14:55)
[2018-07-03] MEDS: SODIUM CHLORIDE 0.9% 1,000 ML 100 ML IV ×2 (03:59→13:59)
--- NOTE | 2018-07-03 05:15 | PC.ADMIT ---
[id number] LEONIDES MCKENNA Admission Note: The patient,Leonela Shirley,67 y/o, was given written information regarding hospital policies, unit procedures and contact persons. Patient's smoking status: Never smoker. Vital Signs - 8 hr 07/02/18 23:11 07/02/18 23:15 07/02/18 23:58 Pulse Rate 120 H 105 H 119 H Respiratory Rate 20 20 22 Blood Pressure [Left Arm] 150/90 H 69/43 L 190/106 H Pulse Oximetry 97 07/03/18 01:11 07/03/18 02:16 Pulse Rate 106 H 120 H Respiratory Rate 20 22 Blood Pressure [Left Arm] 144/93 H 164/102 H Pulse Oximetry Pt arrived to ICU room 103 via stretcher from ER accompanied by SÁNCHEZ Mcpherson. Pt distressed, moaning and crying. Disoriented, confused, anxious and agitated. No coherent speech and unable to follow commands or answer any questions. Tele ST 130's, BP elevated, hyperventilating and actively dry heaving d/t anxiety. Any attempts at calming unsuccessful. Dr. Noyola made aware, orders for ativan received. Pt remained agitated for quite some time after dose of ativan consistently attempting to get OOB. Unable to redirect. Sitter at bedside for safety. Keppra infused, K-rider infused. IVF initiated per orders. Seizure precautions in place, no seizure activity since admission. Will monitor closely.
[2018-07-03] MEDS: METOPROLOL TARTRATE 5 MG/5 ML INJ IV (09:18)
[2018-07-03] MEDS: ENALAPRILAT 1.25 MG/ML VIAL IV (09:45)
--- NOTE | 2018-07-03 10:18 | PC.NURSE ---
Pt continues to mostly sleep and is nonverbal.Moves herself in bed from side to side mostly side-lying with knees drawn up. Remains hypertensive with BP ranging as high as 176 systolic to [address] Kelly called and orders obtained. Given IV lopressor x1 dose of 5mg.This reduced heart rate to 100's but remained hypertensive. Govin vasotec 1.25 with BP remaining high at 160/109.One reading showed 135/99. Continue to monitor. Spouse now in with pt. Not concerned at current drowsy state as both MD and spouse think it is good for her to rest and sleep after agitation and seizure activity last night. No signs of irritablity but does resist arm straightening initially for BP measurement, but then complies. Incontinent of large volume of urine and given bed bath with linen change.
--- NOTE | 2018-07-03 13:07 | CM.IDA ---
Addendum entered by PHU Guillory 07/03/18 14:37: Updated SÁNCHEZ Mckenzie and Dr Noyola w/this IRISH MOSS OPERATOR's concern that pt meets guidelines for grave disability and danger to self . Original Note: DCP Assessment Note: Pt is a 67 yo female, resident of [place]. Pt admitted for N/V and weakness w/seizure and stroke symptoms for days per spouse. Pt's insurance is Medicare/ [facility] and PCP is Dr Lyn. From the Counseling Consult Narrative by PHU Hernandez, [facility], dated 06/25/18: Leonela Shirley is a 67 year old female who is seeking counseling to address what she describes as debilitating anxiety attacks, depression and difficulty with overall functioning. Pt is accompanied today by her , Adilson, who she defers to often in sharing her story and concerns today. She was diagnosed with esophageal cancer in April 2017, underwent chemotherapy and radiation at [facility], and surgery at [facility] last September,. She expressed feeling emotionally debilitated by anxiety symptoms after the completion of her treatment, and has been experiencing worsening nausea, vomiting and anxiety attacks for the last several months. Physically, patient appears very cachectic and frail. Dizziness has been an ongoing issue, which led to 2-falls; one in which she fractured her elbow, and the second one in which she fractured vertebra in her back. She describes a very low threshold of stress tolerance, and has been hospitalized twice due to the severity of her anxiety attacks. After her last hospitalization at [facility], they were unable to identifiy any physical reasons for her ongoing nausea/vomiting. She states that she is unable to eat very much due to often feeling overly full or sick right after eating, and therefore has been unable to maintain a healthy weight. She has been prescribed Lorazapam 1 mg for PRN anxiety, however this doesn't seem to have a lasting, beneficial effect for her. She has not been seen by a human development professor, or a psychiatrist to address the psychological/somatic reaction she is having with food. She states that she has so much anxiety now about eating, that she becomes unable to eat, and begins vomiting. This appears to be a cycle that is repeating itself daily. Spouse states that pt is sleeping about 18-hours per day. There have been times when she was completely withdrawn from family and slept day and night, unless directly interacting with her caregivers/family. Spouse describes that behavior as her being comatose, although pt was aware and just extremely withdrawn. She gets no exercise, and has not followed most of the advice from her primary care doctor or previous counselor. Her primary goal is to get back to the way I used to be. IRISH MOSS OPERATOR Involvement 07/03/18: Received call from Chey Deborah this morning, she summarized her concerns about pt's severe and debilitating PTSD/Anxiety and depression and reviewed some of the information listed above. Chey is very concerned about pt and feels pt requires psychiatric follow up for medication recommendations for PTSD and severe anxiety (see Chey's full note under prior visits dated 07/02/18). This IRISH MOSS OPERATOR reviewed notes and shared these concerns w/Dr Noyola in multi-disciplinary rounds this morning. Dr Noyola agreed to request a psychiatric consult from Dr Bermudez. This IRISH MOSS OPERATOR then met w/pt's spouse Adilson. Adilson reiterated some of the details summarized in Chey's note and further explained that he called [facility] this month and gotten his scheduled for August w/ Dr Bermudez. He regrets saying no to a call to get his in sooner d/t a cancellation (at the time he thought Chey Cabrera would keep pt stable)and is now completing addtl. ppk to secure another psychiatric appt. Adilson is very fearful that pt will not make it until August and states the severity of pt's mental health condition is the barrier to pt eating, moving, communication, and overall health. This IRISH MOSS OPERATOR suggested pt is gravely disabled and a danger to herself d/t her mental health status and spouse agreed. Reviewed safe DCP options briefly w/ spouse: Adilson feels pt is motivated to see a psychiatrist for treatment and continue counseling, and would also likely consider an inpt psychiatric stay if it were recommended and/or available to pt. This IRISH MOSS OPERATOR explained it might benefit pt but treatment/DCP options would greatly hinder on 1. Pt's improvement cognitively and functionally over the next 24-48hrs i.e. Ability to engage in a conversation w/IRISH MOSS OPERATOR and/or a psychiatrist and ability to complete ADLs independently. At baseline, pt has labile moods and her cognition/mobility often wax and wane. There are days when pt can get up, talk, walk on her own independently. There are other days Adilson needs to assist getting pt up out of bed or chair, needs assist w/ all ADLs. Adilson and pt are hopeful that pt can and will feel better and healthier soon. Pt has had no suicidal ideation or attempt and continues to want to feel like I used to and get better. P: Following closely to determine safe and feasible DCP; Home w/close medical and psychiatric f/u vs SNF vs Inpt kapil-psych unit. PHU Guillory Discharge Planning/Care Management CM Discharge Assessment Start: 07/03/18 13:04 Freq: Status: Active Protocol: Document 07/03/18 13:04 ROBIN (Rec: 07/03/18 13:07 ROBIN [id number]) Discharge Planning Assessment Assigned Bankruptcy Judge PHU Hilliard DPOA/Assigned Designee Name Adilson Shirley, spouse of 20+ years Contact Information [phone] Advance Directives? unable to obtain History Provided By Significant Other Medical Record Prior Living Arrangements House Household Members spouse Type of transporation used prior to Relies on Others admit Independent with ADL's No: Depending on the day, per spouse Is patient alert and oriented? Yes: Cognition can wax and wane Comment SEE NARRATIVE Whiteboard Updated in Patient Room with Yes name and ext. # of Bankruptcy Judge Review Status In Process Please Provide Date Initial DC 07/03/18 Assessment Was Performed
--- NOTE | 2018-07-03 14:36 | P.HP_ITS ---
History of Present Illness Date Patient Seen: 07/03/18 Time Patient Seen: 06:10 Chief complaint: N/V x2 days with weakness Narrative: Chief complaint grand mal seizure History of present illness Patient is obtunded and unable to answer questions. Not arousable. I did speak to the patient's Adilson was able to provide me the detailed information necessary to complete admission workup. Patient has no documented history of grand mal seizures. In April 2018 while traveling [place] patient had an episode similar to this event with the shaking on conscious state. Patient was seen at the [facility] in [place] but was not diagnosed with a new onset seizure. On further questioning the notes patient has had bouts of confusion and anxiety that date back to spring. Patient had a diagnosis of esophageal cancer in April 2017. She underwent initially radiation therapy and chemotherapy to address. The next step was in September 2017 when she underwent a esophageal and partial stomach resection. Patient has no previous history of psychiatric disorder. No previous history of bouts of confusion or anxiety either. Patient typically takes lorazepam in the home setting along with Celexa which is taken for depression. Patient was admitted to the hospital for further management of the Gram a seizure. Patient History Medical History Upper GI bleed (Acute) Post surgical complication (Acute) Acute anxiety (Inactive) Surgical History History of esophageal surgery (Acute) History of kyphoplasty (Acute) No pertinent past surgical history (Acute) Comment: Past medical history Esophageal cancer diagnosed April 2017 with chemotherapy and radiation therapy up until September of 2017. In September of 2017 patient underwent surgical resection of the esophagus and part of the stomach. Anxiety and depression diagnosis since spring No history of the following no diabetes no hypertension no heart disease no hyperlipidemia Family & Social History Social History: household members spouse Prior Living Arrangements House Tobacco & Substance use: Smoking Status Never smoker alcohol intake former alcohol intake frequency 0-2 drinks per day Substance Use Type does not use Comment: Social history Patient is . Spouse is name is Adilson. Patient with history of smoking over 20 years ago. Patient does drink 1-2 glasses of wine on a daily basis as noted by the patient' s Surgical history September 2017 patient underwent surgical resection of the esophageal cancer Ears beforehand patient had a total abdominal hysterectomy bowel at all salpingo -oophorectomies for uterine cancer Family history no history of cancer in first-degree relatives Meds Home Medications Medication Instructions Recorded Confirmed Type montelukast [Singulair] 10 mg PO QDAY #0 07/04/07 07/02/18 History acetaminophen 325 mg PO Q4HP PRN #0 12/03/17 07/02/18 History diphenhydramine-acetaminophen 1 tab PO HSP PRN #0 12/03/17 07/02/18 History [Tylenol PM Extra Strength] pantoprazole [Protonix] 40 mg PO QDAY #0 12/03/17 07/02/18 History ondansetron [Zofran ODT] 4 mg SUBLINGUAL Q6HP PRN #20 odt 12/05/17 07/02/18 Rx escitalopram oxalate 20 mg PO BID 07/02/18 07/02/18 History hydrocodone-acetaminophen 1 tab PO Q4-6H PRN 07/02/18 07/02/18 History lorazepam 1 mg PO QD-BID PRN 07/02/18 07/02/18 History Allergies Allergy/AdvReac Type Severity Reaction Status Date / Time simvastatin [SIMVASTATIN] AdvReac Unknown LEG Verified 07/02/18 23:26 CRAMPING sulfamethoxazole AdvReac Unknown DIARRHEA Verified 07/02/18 23:26 [From BACTRIM] trimethoprim [From BACTRIM] AdvReac Unknown DIARRHEA Verified 07/02/18 23:26 Review of Systems Review of Systems A 10 point system review was negative except for the symptoms as described by the which with the grand mal seizures Exam Vital Signs (past 8 hours): - 07/03/18 08:39 07/03/18 08:48 07/03/18 09:35 Temperature 99.0 F Pulse Rate 111 H 122 H 105 H Respiratory Rate 22 Blood Pressure 165/105 H 173/108 H Pulse Oximetry 99 07/03/18 09:45 07/03/18 10:00 07/03/18 10:05 Temperature Pulse Rate 102 H 101 H 97 H Respiratory Rate Blood Pressure 176/115 H 135/99 H 160/109 H Pulse Oximetry 07/03/18 10:52 07/03/18 12:13 07/03/18 12:38 Temperature 99.4 F Pulse Rate 97 H 102 H 108 H Respiratory Rate 22 20 22 Blood Pressure 160/95 H 148/95 H 156/98 H Pulse Oximetry 94 98 07/03/18 13:04 Temperature 99.2 F Pulse Rate Respiratory Rate Blood Pressure Pulse Oximetry Oxygen Delivery Method Room Air Oxygen Flow Rate 0 Narrative Exam Narrative: General appearance patient is a tended not arousable in no apparent distress at rest Skin no rashes or lesions nonjaundiced turgor normal Eyes pupils are equal round and reactive to light Musculoskeletal strength cannot be assessed. Range of motion appears normal passive movement. No clubbing noted Neurologic difficult to assess under the circumstance patient not arousable at this time Cardiovascular regular rate rhythm no murmurs noted GI positive bowel sounds are noted soft abdomen no bruits Respiratory fairly clear to auscultation, no wheezes or crackles Objective Labs Result Diagrams: 07/02/18 22:21 07/02/18 22:21 Labs: Laboratory Results - last 24 hr 07/02/18 07/02/18 07/03/18 22:21 22:21 00:45 WBC 7.8 RBC 3.72 L Hgb 11.5 L Hct 34.5 L MCV 92.7 MCH 30.9 MCHC 33.3 RDW 13.7 Plt Count 345 Neut % (Auto) 89.9 H Lymph % (Auto) 4.4 L [place] % (Auto) 3.6 Eos % (Auto) 1.6 L Baso % (Auto) 0.5 Neut # (Auto) 7000 H Sodium 138 Potassium 3.2 L Chloride 95 L Carbon Dioxide 21 L BUN 16 Creatinine 0.60 Estimated GFR > 60.0 BUN/Creatinine Ratio 26.7 H Glucose 186 H Calcium 9.4 Magnesium 1.6 Total Bilirubin 0.6 AST 38 H ALT 30 Alkaline Phosphatase 104 Total Protein 7.3 Albumin 4.2 Globulin 3.1 Albumin/Globulin Ratio 1.4 Prolactin 29.5 H Urine Color Yellow Urine Appearance Clear Urine pH 7.5 Ur Specific [place] 1.015 Urine Protein Trace H Urine Glucose (UA) Negative Urine Ketones 1+ H Urine Occult Blood Negative Urine Nitrate Negative Urine Bilirubin Negative Urine Urobilinogen 0.2 Ur Leukocyte Esterase Trace H Urine RBC 0-1/hpf Urine WBC 0-1/hpf Ur Squamous Epith Cells 0-1 /hpf Urine Bacteria Few (2-10) H Ur Culture Indicated? Specimen cultured Micro UA Comment Not Reportable Nasal Screen MRSA (PCR) Urine Opiates Screen Ur Oxycodone Screen Urine Methadone Screen Ur Barbiturates Screen U Tricyclic Antidepress Ur Phencyclidine Scrn Ur Amphetamines Screen U Methamphetamines Scrn Ur MDMA Scrn (Ecstasy) U Benzodiazepines Scrn Urine Cocaine Screen U Marijuana (THC) Screen Ethyl Alcohol < 10 07/03/18 07/03/18 00:45 04:00 WBC RBC Hgb Hct MCV MCH MCHC RDW Plt Count Neut % (Auto) Lymph % (Auto) [place] % (Auto) Eos % (Auto) Baso % (Auto) Neut # (Auto) Sodium Potassium Chloride Carbon Dioxide BUN Creatinine Estimated GFR BUN/Creatinine Ratio Glucose Calcium Magnesium Total Bilirubin AST ALT Alkaline Phosphatase Total Protein Albumin Globulin Albumin/Globulin Ratio Prolactin Urine Color Urine Appearance Urine pH Ur Specific [place] Urine Protein Urine Glucose (UA) Urine Ketones Urine Occult Blood Urine Nitrate Urine Bilirubin Urine Urobilinogen Ur Leukocyte Esterase Urine RBC Urine WBC Ur Squamous Epith Cells Urine Bacteria Ur Culture Indicated? Micro UA Comment Nasal Screen MRSA (PCR) Negative for mrsa Urine Opiates Screen Positive H Ur Oxycodone Screen Negative Urine Methadone Screen Negative Ur Barbiturates Screen Negative U Tricyclic Antidepress Positive H Ur Phencyclidine Scrn Negative Ur Amphetamines Screen Negative U Methamphetamines Scrn Negative Ur MDMA Scrn (Ecstasy) Negative U Benzodiazepines Scrn Positive H Urine Cocaine Screen Negative U Marijuana (THC) Screen Negative Ethyl Alcohol Assessment & Plan Plan: Assessment/Plan Narrative: New onset grand mal seizure As noted in history patient may have had a grand mal seizure as well in April 2018 while traveling in [place]. ER physician contacted neurologist recommended Keppra 1 g loading dose with 750 mg IV or p.o. b.i.d. Patient could have follow-up with neurologist in outpatient setting as I discussed with the patient's Adilson in early a.m. July 03 Hypokalemia Potassium to correct continue to monitor labs Will check a magnesium level History of esophageal cancer Diagnosed April 2017 with surgical resection in September 2017 notes patient can take small amounts of meal at a time with multiple times of oral intake Under set circumstance patient apparently tolerates the meals reasonably well according to the Anxiety and depression This appeared in spring 2017. Patient has been on Celexa as well as Ativan to treat Will see if Dr. Bermudez psychiatrist is available to consult before her discharge Time Spent With Patient Time with patient: Greater than 35 minutes (70 min) Quality VTE Deep Vein Thrombosis/Pulmonary Embolism Present on Admission: No
--- NOTE | 2018-07-03 15:01 | PC.NURSE ---
Pt had large incontinent void -cleaned and brief replaced.Pt able to move self in bed. Pt began to weep as she began rousing more. Wondered whether she was in pain, spouse states she takes vicodin at home. Called Dr Noyola and he suggested ativan for now as it may be more emotional crying than pain. Noted pt grimaced at times. Now can maintain eye contact but remains nonverbal, even to direct questioning from spouse.
--- NOTE | 2018-07-03 15:30 | PC.NURSE ---
Pt given 1 mg of ativan and soon settled to sleep with even respirations.Spouse in room at this time.
--- NOTE | 2018-07-03 18:06 | ST.IPIE ---
Care Team Visit Care Team Role Provider Type Ana Lyn MD Family Provider Physician Primary Care Provider Specialty: Internal Medicine Address: [address] [place] [address] Email: Toshia Borrero DO Emergency Provider Physician Specialty: Emergency Medicine Address: [address] [place] [address] Email: Arthur Noyola MD Admit Provider Physician Attending Provider Specialty: Internal Medicine Address: [address] [place] [address] Email: Past Medical History (Last Reviewed 07/02/18 @ 23:13 by Toshia Borrero DO) Upper GI bleed (Acute Medical) Post surgical complication (Acute Medical) Acute anxiety (Inactive Medical) ST IP Initial Evaulation Report RESIDENTIAL LIFE DIRECTOR Clinical Swallow Evaluation Start: 07/03/18 17:51 Freq: Status: Active Protocol: Document 07/03/18 17:51 MRM (Rec: 07/03/18 18:05 [facility] [id number]) Clinical Swallow Evaluation Session Time Visit Start Time 16:40 Visit Stop Time 17:20 Total Visit Minutes [address] Noyola Reason for Referral Dysphagia Setting Assessment Location Acute Care Visit Type Note Type Initial Evaluation Next Note Type Next Note Type Treatment Note Patient Information Identification Type Name Other History Patient is a 67 year old female with an extensive medical history, most significant for stage 3 esophageal cancer with resection and stomach stretching. History of J tube for 2-3 months. Patient did have chemotherapy and radiation to address prior to partial esophagel resection. Patient has been tolerating a regular diet (except no raw vegetables per order from Светлана Borrego) and thin liquids, however, per report, she has continued to decline in function and lose weight. She has had an extensive emotional reaction to her medical condition over the past year, with PTSD diagnosis and extreme anxiety related to eating. Her reported that she has had frequent nausea and vomiting for quite some time, further affecting her weight loss. She had a (presumed) MBS performed after her partial esophagectomy in September 2017, which revealed minimal impariment (per report ). However, since this, did not recall any imaging of pharynx/esophageal motility. She was admitted to [facility] after a significant seizure. She has had to be sedated while in ICU due to these as well.No reported recent pneumonia or pneumothorax. Please see medical chart for further past medical history due to extensive case. Subjective Observations Patient obtunded but able to open her eyes. Immediately began to vomit white frothy liquid upon ST arrival while lying flat on her back. RESIDENTIAL LIFE DIRECTOR immediately positioned patient upright and called nursing. Suction administered. Positioned upright at 45 degrees. Vomiting ceased shortly after. RESIDENTIAL LIFE DIRECTOR declined to administer PO trials due to patient's inability to rouse to alertness and her vomiting. However, thorough education provided to the regarding necessary intake, affects of swallowing after chemo and radiation as well as a partial esophagel and stomach resection. Explained the anatomy and function of the esophagus v. the stomach and how the swallowing function may be affected from a surgery such as the one she had in September. Explained the need for adequate nutrition and hydration as well as the optimal time to initiate a swallow evaluation due to the patient's extreme emotional reaction to eating in general. The verbalized understanding and was supportive. No trials administered due to the patient's inability to safely participate. RESIDENTIAL LIFE DIRECTOR will follow closely and begin PO trials when appropriate. RESIDENTIAL LIFE DIRECTOR did bring up the possibility of a discussion in the future with MD regarding possible need for a feeding tube, should the patient's swallowing difficulty and nutrition require such intervention. The verbalized understanding and stated that he expects his to be very upset from this, but that he did begin to talk with her about the need for a second feeding tube this week. RESIDENTIAL LIFE DIRECTOR did not speak much on this subject, as it is most appropriate for MD. RESIDENTIAL LIFE DIRECTOR spoke with Dr Noyola after the evaluation, who was in agreement. Findings Impressions Unable to participate. Follow up for PO trials and/or MBS when appropriate. Diet Recommendations Liquids Order NPO Treatment Plan Dysphagia Goals Patient will participate in swallow evaluation when able for diet advancement. Referrals/Other Recommended Referrals GI Consult
[2018-07-03] MEDS: SODIUM CHLORIDE 0.9% FLUSH 10 ML IV (20:49)
--- NOTE | 2018-07-03 22:09 | PC.NURSE ---
Pt remains drowsy, slept most of shift. Arouses to touch. Was able to sit up and nod that she needed to use the bedpan, remains non-verbal. No Ativan given this shift. One episode of gagging and with excessive secretions, oral suction to clear secretions. Frequent turns and repositioning for pressure injury prevention
[2018-07-04] VITALS: BP 135/83; PULSE 96; RESP 21; TEMP 36.5; O2SAT 99
[2018-07-04] MEDS: SODIUM CHLORIDE 0.9% 1,000 ML 100 ML IV ×2 (00:08→09:51)
[2018-07-04 04:14] VITALS: BP 142/93; PULSE 115; RESP 24; TEMP 36.1; O2SAT 97
[2018-07-04 05:36] LABS: Add Manual Diff / Slide Review NO; Basophils Percent Auto 0.7 % (0-2); Eosinophils Percent Auto 0.1 % (2-4); Hematocrit 34.5 % (36-46); Hemoglobin 11.6 g/dL (12.0-16.0); Lymphocytes Percent Auto 14.6 % (25-40); Mean Corpuscular HGB Conc 33.7 % (30-36); Mean Corpuscular Hemoglobin 30.8 PG (26-34); Mean Corpuscular Volume 91.4 fL (80-100); Monocytes Percent Auto 10.8 % (3-14); Neutrophils Absolute Auto 6800 /uL (3000-5900); Neutrophils Percent Auto 73.8 % (50-75); Platelet Count 320 X10^3/uL (150-400); Red Blood Cell Count 3.77 X10^6/uL (4.0-5.2); Red Cell Distribution Width 13.8 % (11.6-14.8); White Blood Cell Count 9.2 X10^3/uL (4.5-11.0)
[2018-07-04 06:04] LABS: Alanine Aminotransferase 30 IU/L (9-52); Albumin 3.7 g/dL (3.5-5.0); Albumin Globulin Ratio 1.3 (1.0-2.8); Alkaline Phosphatase 101 U/L (38-126); Aspartate Aminotransferase 34 IU/L (14-36); Bilirubin Total 0.8 mg/dL (0.2-1.3); Blood Urea Nitrogen 13 mg/dL (7-17); Calcium 8.8 mg/dL (8.4-10.2); Carbon Dioxide 28 mmol/L (22-32); Chloride 102 mmol/L (98-107); Estimated Glomerular Filt Rate > 60.0 mL/min (>60); Globulin 2.8 g/dL (1.7-4.1); Glucose 100 mg/dL (80-110); HEMOLYSIS < 15 (0-50); Sodium 140 mmol/L (137-145); Total Protein 6.5 g/dL (6.3-8.2)
--- NOTE | 2018-07-04 06:19 | PC.NURSE ---
Patient drowsy early in shift, woke anxious and tearful at 0200, urgently had to void, used bedpan plus had some incontinence. Can communicate needs but has difficulty following some directions, disoriented to place and time. ST rate 100-110, other VSS, SpO2 >92% RA, CTA. Did not require Ativan overnight, denies pain.
[2018-07-04 09:49] VITALS: BP 142/88; PULSE 118; RESP 29; TEMP 37.1; O2SAT 96
[2018-07-04] MEDS: SODIUM CHLORIDE 0.9% FLUSH 10 ML IV ×2 (09:51→20:30)
--- NOTE | 2018-07-04 10:35 | PC.NURSE ---
Pt oriented to self and place. Responding verbally appropriately, smiling and being cooperative with cares. Plan to get her up in chair once seen by MD. Remains NPO pending swallow evaluation. Pt denies pain.
[2018-07-04 12:05] VITALS: BP 121/81; PULSE 112; RESP 22; TEMP 37.6; O2SAT 98
--- NOTE | 2018-07-04 12:18 | ST.IPDYTX ---
Care Team Visit Care Team Role Provider Type Ana Lyn MD Family Provider Physician Primary Care Provider Specialty: Internal Medicine Address: [address] [place] [address], [facility] Email: Toshia Borrero DO Emergency Provider Physician Specialty: Emergency Medicine Address: [address] [place] [address] Email: Arthur Noyola MD Admit Provider Physician Attending Provider Specialty: Internal Medicine Address: [address] [place] [address] Email: FINANCE BROKER Dysphagia Treatment FINANCE BROKER Dysphagia Treatment Start: 07/03/18 17:51 Freq: Status: Active Protocol: Document 07/04/18 12:18 MRM (Rec: 07/04/18 11:32 MRM [id number]) Dysphagia Treatment Session Time Visit Start Time 11:15 Visit Stop Time 12:00 Total Visit Minutes 45 Setting Assessment Location Acute Care Visit Type Note Type Treatment Note Next Note Type Next Note Type Treatment Note Patient Information Identification Type Name Other Subjective Observations Patient awake and alert, lying in bed with family present. Indicated mild pain in her bladder and voiced concern that she may be developing an infection. RN, Magaly, and RN Slade, both aware. Urine samples have been taken to assess for UTI. Patient agreed to participate in swallow evaluation for diet advancement. Able to self-feed . Treatment Liquids Trialed Ice Chips Thin Solids Trialed Puree Dysphagia Advanced Regular Administration Type Cup Single Sip Oral Strategies Upright at 90 degrees Treatment Activities Patient trialed ice chips x3 via spoon, cup sips of thin liquids and puree applesauce. Mild, dry cough observed x1 following consecutive cups sips. No overt s/s of aspiration with any trial through ice chips, thin liquid , puree applesauce, soft fruit or cookie. However, did observe after consecutive sips of thin liquid, patient would belch. Suspect motility issue secondary to esophgeal resection. Assessment Patient Response to Treatment Excellent Rehab Potential Good Assessment of Improvement No s/s of oropharyngeal dysphagia or difficulty tolerating any PO texture at this time. No overt s/s of aspiration thorughout the re- evaluation. Able to tolerate thin liquids, puree textures, dysphagia mechanical textures and regular textures without difficulty. Independent in all trials. Recommend upgrade diet from NPO to regular textures with thin liquids, medication as tolerated. FINANCE BROKER educated patient and regarding safe swallowing strategies and provided menu for patient to order her own meals. She requested a sandwich for lunch. FINANCE BROKER relayed information to RNMD and care management. Would recommend upper GI study to assess motility, if able this visit. Diet Recommendations Recommendations Upgrade Diet Order Liquids Order Thin Diet Order Regular Medication Recommendations As Tolerated Additional Dietary Needs Encourage to Self-Feed Reminders to Use Strategies Aspiration Precautions Recommended Precautions Upright at 90 Degrees Alternate Liquids/Solids Frequent Rest Periods Small Bites/Sips Effortful Swallow Additional Precautions Slow sips of thin liquid to avoid regurgitation Treatment Plan Placement Recommendation after Discharge Outpatient Therapy Appropriate for Continued Therapy Yes Therapy Recommendations Patient would benefit from psychiatric evaluation secondary to her PTSD and anxiety related to eating. She may benefit from upper GI study to further investigate the function of her esophageal motility following esophageal resection. Dysphagia Goals Patient will tolerate the safest, least restrictive diet without overt s/s of aspiration. Patient will demonstrate safe intake behavior (small bites/ sips, slow rate of intake, extra time for motility, etc). Follow Up Plan Follow up for diet tolerance assessment Referrals/Other Recommended Referrals Primary Care Physician Neurology GI Consult
--- NOTE | 2018-07-04 12:49 | PC.NURSE ---
Pt sitting up and tolerating lunch well. Smiling and interacting with cousin and spouse.Noted her responses are delayed and she has trouble word-finding at times.Also c/of pain in bladder when she voids.Plan on getting a sample of urine once she voids in the clean bedpan.
[2018-07-04 15:36] LABS: Bacteria Urine None Seen; WBC Urine None Seen (0-5/HPF)
[2018-07-04 15:46] LABS: Appearance Urine UA CLEAR; Bilirubin Urine UA NEGATIVE (NEGATIVE); Color Urine UA YELLOW; Glucose Urine UA NEGATIVE (Normal); Ketones Urine UA 1+ (NEGATIVE); Leukocyte Esterase Urine UA NEGATIVE (NEGATIVE); Nitrite Urine UA NEGATIVE (Negative); Occult Blood Urine UA TRACE-LYSED (Negative); Protein Urine UA NEGATIVE (Negative); Urobilinogen Urine UA 0.2 E.U./dL (0.2); pH Urine UA 5.5 (4.5-8.0)
--- NOTE | 2018-07-04 15:51 | PM.PN.1 ---
Subjective Date Patient Seen: 07/04/18 Time Patient Seen: 13:51 Interval history: History of present illness Follow-up on patient with new onset grand mal seizure No history of suspected previous grand-mal seizure April of 2018 when patient was treated in [place]. Note patient with hallucinations. Unclear whether patient has a hardware in right elbow that precludes patient from undergoing MRI of the brain We are waiting for the details for the orthopedic procedure regarding right elbow surgery in [place] in April 2018 Will proceed with MRI of the brain if allowed to do so Review of systems Patient notes no chest pain or shortness of breath no nausea Exam Vital Signs (past 8 hours): - 07/04/18 09:49 07/04/18 12:05 Temperature 98.7 F 99.7 F H Pulse Rate 118 H 112 H Respiratory Rate 29 H 22 Blood Pressure 142/88 H 121/81 Pulse Oximetry 96 98 Oxygen Delivery Method Room Air Oxygen Flow Rate 0 Narrative Exam Narrative: General appearance patient is awake alert in no apparent distress Psychiatric patient is still a bit confused oriented to self only mood is pleasant affect is appropriate patient is cooperative following commands Respiratory fairly clear to auscultation no wheezes no crackles Cardiovascular sinus tachycardia with a regular rhythm but rate of about 110-105 per minute +3 pulses to extremities no murmur GI fairly benign soft nontender positive bowel sounds no masses no bruits Neurologic no focal neurologic changes patient with no resting tremor. Cranial nerves 2-12 appear grossly intact Objective Labs Result Diagrams: 07/04/18 05:15 07/04/18 05:15 Labs: Laboratory Results - last 24 hr 07/04/18 07/04/18 05:15 05:15 WBC 9.2 RBC 3.77 L Hgb 11.6 L Hct 34.5 L MCV 91.4 MCH 30.8 MCHC 33.7 RDW 13.8 Plt Count 320 Neut % (Auto) 73.8 Lymph % (Auto) 14.6 L [place] % (Auto) 10.8 Eos % (Auto) 0.1 L Baso % (Auto) 0.7 Neut # (Auto) 6800 H Sodium 140 Potassium 3.0 L Chloride 102 Carbon Dioxide 28 BUN 13 Creatinine 0.50 L Estimated GFR > 60.0 BUN/Creatinine Ratio 26.0 H Glucose 100 Calcium 8.8 Total Bilirubin 0.8 AST 34 ALT 30 Alkaline Phosphatase 101 Total Protein 6.5 Albumin 3.7 Globulin 2.8 Albumin/Globulin Ratio 1.3 Assessment & Plan Plan: Assessment/Plan Narrative: New onset grand mal seizure As noted in history patient may have had a grand mal seizure as well in April 2018 while traveling in [place]. ER physician contacted neurologist recommended Keppra 1 g loading dose with 750 mg IV or p.o. b.i.d. Patient could have follow-up with neurologist in outpatient setting as I discussed with the patient's Adilson in early a.m. July 03 In view of her loosen a shins in a.m. today and this new seizure activity we are trying to get an MRI of the brain We need to establish the hardware in the right elbow is not a contraindication to MRI of the brain Speech is done bedside swallow eval and notes patient can take thin liquids safely no restriction on oral intake diet Hypokalemia Potassium to correct and continue to monitor labs In a.m. today potassium 3.0 and since allowed to swallow will provide 40 mEq now and repeat dose in 4 hr Repeat potassium level tonight at 8:00 p.m. as well as tomorrow in a.m. Note magnesium level was normal when checked yesterday History of esophageal cancer Diagnosed April 2017 with surgical resection in September 2017 notes patient can take small amounts of meal at a time with multiple times of oral intake Under set circumstance patient apparently tolerates the meals reasonably well according to the Note swallow evaluation by speech in a.m. today. Anxiety and depression This appeared in spring 2017. Patient has been on Celexa as well as Ativan to treat Will see if Dr. Bermudez psychiatrist is available to consult before her discharge Time Spent With Patient Time with patient: Greater than 35 minutes (40 min) Quality VTE Deep Vein Thrombosis/Pulmonary Embolism Present on Admission: No
[2018-07-04 15:58] LABS: RBC Urine 1-5/HPF (0-5/HPF)
--- NOTE | 2018-07-04 15:59 | CM.DPC ---
DCP Cont: See PACKER INSPECTOR note today. Pt improving in spirits per PACKER INSPECTOR Margaret. A plan re: nutrition/sustenance will likely need to be discussed w/pt by medical team. Pt has PTSD from placement of her peg tube after her esophageal surgery. Then spoke to SÁNCHEZ Mckenzie who explained pt is not at her cognitive baseline and almost showing s/sx of stroke (?) ELECTRIC BLANKET WIRER team following closely for coordination of safe DCP. This pt continues to be a great candidate for immediate psychiatric f/u once more alert; either outpt or inpt, pending continued communication between the ELECTRIC BLANKET WIRER and medical staff. PHU Guillory
[2018-07-04] MEDS: POTASSIUM CHLORIDE 20 MEQ/15 ML UDC 40 MEQ PO ×2 (16:41→20:16)
[2018-07-04 16:50] VITALS: BP 137/82; PULSE 102; RESP 16; TEMP 37.5; O2SAT 98
[2018-07-04 19:52] LABS: HEMOLYSIS < 15 (0-50); Potassium 3.2 mmol/L (3.4-5.1)
[2018-07-04 20:00] VITALS: BP 153/98; RESP 15; TEMP 37.1; O2SAT 97
--- NOTE | 2018-07-04 22:21 | PC.NURSE ---
Pt awake and able to hold a conversation with spouse and staff. Able to make needs known. Oriented to self and place. Trouble with word finding and delayed responses. Potassium replaced per orders, K 3.2 now. Requested operative report from [facility] in [place], [place] to determine if plate in elbow is MRI safe in order to proceed with brain MRI . Received operative report but will have to wait until Friday when full medical record can be obtained with adequate information about implanted device. Pt resting without complaint.
[2018-07-05 00:35] VITALS: BP 146/98; PULSE 121; TEMP 38; O2SAT 98
--- NOTE | 2018-07-05 01:20 | PC.NURSE ---
Manager Talent S.N. Pt alert and oriented to person, place and time. Responding verbally appropriately, smiling. Bed linens were completely changed due to urine overflow from brief. Provided pericare, placed new brief, and linens. Lung sounds were clear, bowel tones were hypoactive in all 4 quadrants.
[2018-07-05] MEDS: SODIUM CHLORIDE 0.9% 1,000 ML 50 ML IV (01:25)
[2018-07-05 04:31] VITALS: BP 156/106; PULSE 125; RESP 18; TEMP 37.7; O2SAT 99
[2018-07-05 05:00] VITALS: PULSE 95
[2018-07-05 05:33] VITALS: PULSE 102
[2018-07-05 06:29] LABS: Add Manual Diff / Slide Review NO; Basophils Percent Auto 0.9 % (0-2); Eosinophils Percent Auto 0.5 % (2-4); Hematocrit 35.3 % (36-46); Hemoglobin 11.9 g/dL (12.0-16.0); Lymphocytes Percent Auto 11.9 % (25-40); Mean Corpuscular HGB Conc 33.7 % (30-36); Monocytes Percent Auto 10.6 % (3-14); Neutrophils Absolute Auto 5600 /uL (3000-5900); Neutrophils Percent Auto 76.1 % (50-75); Platelet Count 298 X10^3/uL (150-400); Red Blood Cell Count 3.84 X10^6/uL (4.0-5.2); Red Cell Distribution Width 13.7 % (11.6-14.8); White Blood Cell Count 7.4 X10^3/uL (4.5-11.0)
[2018-07-05 06:35] LABS: Alanine Aminotransferase 25 IU/L (9-52); Albumin 3.7 g/dL (3.5-5.0); Albumin Globulin Ratio 1.3 (1.0-2.8); Alkaline Phosphatase 92 U/L (38-126); Aspartate Aminotransferase 21 IU/L (14-36); Bilirubin Total 0.4 mg/dL (0.2-1.3); Blood Urea Nitrogen 12 mg/dL (7-17); Calcium 8.8 mg/dL (8.4-10.2); Carbon Dioxide 29 mmol/L (22-32); Chloride 104 mmol/L (98-107); Estimated Glomerular Filt Rate > 60.0 mL/min (>60); Globulin 2.9 g/dL (1.7-4.1); Glucose 110 mg/dL (80-110); HEMOLYSIS < 15 (0-50); Potassium 3.2 mmol/L (3.4-5.1); Sodium 140 mmol/L (137-145); Total Protein 6.6 g/dL (6.3-8.2)
[2018-07-05] MEDS: POTASSIUM CHLORIDE 40 MEQ in SODIUM CHLORIDE 0.9% 500 ML 130 ML IV (09:27)
[2018-07-05] MEDS: POTASSIUM CHLORIDE 20 MEQ TAB PO (09:27)
[2018-07-05] MEDS: SODIUM CHLORIDE 0.9% FLUSH 10 ML IV (09:27)
[2018-07-05] MEDS: ATENOLOL 25 MG TABLET PO (09:48)
[2018-07-05 10:30] VITALS: PULSE 112; RESP 18; TEMP 37.1; O2SAT 97
[2018-07-05 12:19] VITALS: BP 140/93; PULSE 88; RESP 18; TEMP 37.1; O2SAT 96
--- NOTE | 2018-07-05 13:22 | PC.NURSE ---
pt denies pain other than generalized aches she was incontinent large amount of urine this am stating well , I have a diaper on assisted to bsc where she voided again and cleaned pt up, reminded her to let us know if she has to void and we will assist her to bsc or br- she is much less mobile than her usual- per her spouse, Adilson- sometimes vague, nonsensible speech but mostly able to carry on appropriate conversation-lungs clear, increased po intake with occ heaving post eating- again, spouse reports this is not abnormal for her. Encouraged increased mobility and increased po intake to include high calorie items- may benefit from dietary consult
[2018-07-05 15:12] LABS: HEMOLYSIS < 15 (0-50)
--- NOTE | 2018-07-05 16:46 | P.DS_ITS ---
History of Present Illness Date Patient Seen: 07/05/18 Time Patient Seen: 16:46 Chief complaint: N/V x2 days with weakness Narrative: Chief complaint grand mal seizure History of present illness Patient is obtunded and unable to answer questions. Not arousable. I did speak to the patient's Adilson was able to provide me the detailed information necessary to complete admission workup. Patient has no documented history of grand mal seizures. In April 2018 while traveling [place] patient had an episode similar to this event with the shaking on conscious state. Patient was seen at the [facility] in [place] but was not diagnosed with a new onset seizure. On further questioning the notes patient has had bouts of confusion and anxiety that date back to spring. Patient had a diagnosis of esophageal cancer in April 2017. She underwent initially radiation therapy and chemotherapy to address. The next step was in September 2017 when she underwent a esophageal and partial stomach resection. Patient has no previous history of psychiatric disorder. No previous history of bouts of confusion or anxiety either. Patient typically takes lorazepam in the home setting along with Celexa which is taken for depression. Patient was admitted to the hospital for further management of the Gram a seizure. Discharge Providers Date of admission: 07/03/18 02:37 Primary care physician: Ana Lyn MD Consults: 07/03/18 06:01 Consult to Discharge Planning Routine Comment: arrange for outpatient Neurology consult next week 07/03/18 14:51 Consult to Speech Therapy Evaluate & Treat Comment: bedside swallow eval when patient appropriate Physician Instructions: Evaluate and treat Discharge provider: Arthur Noyola MD Discharge Date: 07/05/18 Summary Discharge Diagnosis: New onset grand mal seizure As noted in history patient may have had a grand mal seizure as well in April 2018 while traveling in [place]. ER physician contacted neurologist recommended Keppra 1 g loading dose with 750 mg IV or p.o. b.i.d. Patient could have follow-up with neurologist in outpatient setting as I discussed with the patient's Adilson in early a.m. July 03 Speech did bedside swallow eval and notes patient can take thin liquids safely no restriction on oral intake diet Discharge patient on Keppra at 750 mg p.o. b.i.d. Hypokalemia Corrected during hospital course. At the Time of discharge the potassium level is 4.0 History of esophageal cancer Diagnosed April 2017 with surgical resection in September 2017 notes patient can take small amounts of meal at a time with multiple times of oral intake Under set circumstance patient apparently tolerates the meals reasonably well according to the Note swallow evaluation by speech in a.m. July 04 Anxiety and depression This appeared in spring 2017. Patient has been on Celexa at 20 mg daily with suboptimal results Will switch to Zoloft 50 mg p.o. daily. Patient also provided trazodone 50 mg at bedtime as needed to help promote sleep History of panic disorder Will provide Klonopin oral disintegrating 0.25 mg sublingual as needed for panic attack Sinus tachycardia Noted chronic in nature provided atenolol 25 mg daily and continue on discharge Hospital Course: Patient is a 67 years of age female is admitted for new onset grand mal seizure. On further questioning it is found that patient might have had a grand mal seizure in April of 2018 as well but was not diagnosed when seen in [place]. Patient with history of depression with a secondary anxiety it appears also history of panic disorder according to the bedside Patient has been on Celexa 20 mg daily with suboptimal affect. Patient was provided Keppra at 1500 mg IV loading dose and then provided is Keppra 750 mg p.o. b.i.d. This will be continued upon discharge Patient is stable for discharge on July 05. Patient can have follow-up with the neurologist in the outpatient setting as arranged through their PCP Dr. Ana lyn Status at Discharge Cognitive/behavioral status at discharge: Well oriented no apparent distress good cognitive function Time Spent with Patient Greater than 30 minutes Exam Vital Signs (past 8 hours): - 07/05/18 10:30 07/05/18 12:19 Temperature 98.8 F 98.8 F Pulse Rate 112 H 88 Respiratory Rate 18 18 Blood Pressure 140/93 H Pulse Oximetry 97 96 Oxygen Delivery Method Room Air Oxygen Flow Rate 0 Narrative Exam Narrative: General appearance she is awake and alert no apparent distress Psychiatric well oriented to time place person mood is pleasant affect is appropriate Respiratory is clear to auscultation with good air flow Cardiovascular regular rate rhythm no murmur GI is benign soft nontender Neurologic no focal neurologic changes no tremors cranial nerves 2-12 grossly intact Objective Labs Result Diagrams: 07/05/18 06:00 07/05/18 14:30 Labs: Laboratory Results - last 24 hr 07/04/18 07/05/1818 19:20 06:00 06:00 WBC 7.4 RBC 3.84 L Hgb 11.9 L Hct 35.3 L MCV 92.0 MCH 31.0 MCHC 33.7 RDW 13.7 Plt Count 298 Neut % (Auto) 76.1 H Lymph % (Auto) 11.9 L [place] % (Auto) 10.6 Eos % (Auto) 0.5 L Baso % (Auto) 0.9 Neut # (Auto) 5600 Sodium 140 Potassium 3.2 L 3.2 L Chloride 104 Carbon Dioxide 29 BUN 12 Creatinine 0.40 L Estimated GFR > 60.0 BUN/Creatinine Ratio 30.0 H Glucose 110 Calcium 8.8 Total Bilirubin 0.4 AST 21 ALT 25 Alkaline Phosphatase 92 Total Protein 6.6 Albumin 3.7 Globulin 2.9 Albumin/Globulin Ratio 1.3 07/05/18 14:30 WBC RBC Hgb Hct MCV MCH MCHC RDW Plt Count Neut % (Auto) Lymph % (Auto) [place] % (Auto) Eos % (Auto) Baso % (Auto) Neut # (Auto) Sodium Potassium 4.0 Chloride Carbon Dioxide BUN Creatinine Estimated GFR BUN/Creatinine Ratio Glucose Calcium Total Bilirubin AST ALT Alkaline Phosphatase Total Protein Albumin Globulin Albumin/Globulin Ratio Discharge Plan Discharge Plan Patient Disposition: Home Discharge Med Rec/Prescriptions Prescriptions: New atenolol 25 mg Tablet 25 mg PO DAILY Qty: 30 RF: 3 trazodone 50 mg tablet 50 mg PO DAILY Qty: 30 RF: 3 levetiracetam [Keppra] 750 mg tablet 750 mg PO BID Qty: 60 RF: 3 sertraline [Zoloft] 50 mg tablet 50 mg PO DAILY Qty: 30 RF: 3 Continue montelukast [Singulair] 10 MG tablet 10 mg PO QDAY Qty: 0 RF: 0 acetaminophen 325 MG tablet 325 mg PO Q4HP PRN (Reason: Abdominal Discomfort) Qty: 0 RF: 0 pantoprazole [Protonix] 40 MG tablet,delayed release (DR/EC) 40 mg PO QDAY Qty: 0 RF: 0 diphenhydramine-acetaminophen [Tylenol PM Extra Strength] 500 MG/25 MG tablet 1 tab PO HSP PRN (Reason: Pain (Scale Score 1-3)) Qty: 0 RF: 0 ondansetron [Zofran ODT] 4 MG tablet,disintegrating 4 mg Sublingual Q6HP PRNQty: 20 RF: 0 hydrocodone-acetaminophen 5-325 mg Tablet 1 tab PO Q4-6H PRN (Reason: Breakthrough Pain, Moderate) RF: 0 lorazepam 1 mg Tablet 1 mg PO QD-BID PRN (Reason: Anxiety) RF: 0 Discontinued escitalopram oxalate 20 mg Tablet 20 mg PO BID RF: 0 Follow up/Referrals: Ana Lyn MD [Primary Care Provider] - Provider Discharge Instructions Diet: Diet as Tolerated and Regular Skin/Wound/Dressing Care Report to your healthcare provider any signs of infection, such as:: chills, fever, night sweats and increased pain Visit Report/Discharge Packet Instructions: Seizure Disorder -- Adult, DI for Dehydration -- Adult, Trazodone , Clonazepam, Atenolol, Sertraline, Levetiracetam Visit Report Forms: Stroke Signs & Symptoms Discharge Data Primary Care Provider: Ana Lny Attending Provider: Arthur Noyola Admchayo Date/Time: 07/03/18 02:37 Quality VTE Deep Vein Thrombosis/Pulmonary Embolism Present on Admission: No
--- NOTE | 2018-07-05 17:11 | PC.NURSE ---
1500- assumed care of pt from outgoing shift at 1500. Pt with pt. compliant. bed alarm set. cooperative. went for a walk and felt a little dizzy, vss throughout the walk. Pt uses call light. given water and went for a second walk anf pt did better, denied dizziness. md in to see pt before discharge. will continue to monitor.
== END 2018-07-05 17:05 | disposition home or self-care (01) | DRG 100 ==
LOC: ED 22:43 → ICU 07-03 07:21 → AC 07-03 15:16 → ICU 07-03 15:16 → AC 07-05 14:39
PROVIDERS: Admitting Provider Internal Medicine; Emergency Provider Emergency Medicine; Family Provider Internal Medicine; PCP Internal Medicine; Visit Provider Internal Medicine
DX: G40.409 Other generalized epilepsy and epileptic syndromes, not intractable, without status epilepticus (principal); R40.2122 Coma scale, eyes open, to pain, at arrival to emergency department; E87.6 Hypokalemia; F32.9 Major depressive disorder, single episode, unspecified; F41.9 Anxiety disorder, unspecified; R00.0 Tachycardia, unspecified; F41.0 Panic disorder [episodic paroxysmal anxiety]; R40.2352 Coma scale, best motor response, localizes pain, at arrival to emergency department; R40.2242 Coma scale, best verbal response, confused conversation, at arrival to emergency department
CPT/HCPCS: 36415; 36591; 70450; 71045; 74018; 80053; 80305; 80320; 81001; 81003; 81015; 82962; 83735; 84132; 84146; 85025; 87086; 87797; 92526; 92610; 93005; 93010; 99284; 99285; 99291; J1953; J2060; J3480

== ENCOUNTER → 2018-07-14 13:04 | Outpatient (CLI) | payer MEDICARE, OTHER, SELFPAY ==
[2018-07-03 03:44] VITALS: BMI 15.4
--- NOTE | 2018-07-14 | DI.MRI.S_ITS ---
PROCEDURE: MR HEAD/BRAIN WO/W CON INDICATIONS: EPILEPSY TECHNIQUE: Noncontrast axial T1 spin echo, axial T2 fast spin echo, sagittal and axial FLAIR, coronal T2 fast spin echo, axial gradient echo, axial diffusion and ADC through the brain. After the administration of contrast, axial and coronal 3D VIBE or T1 spin echo with fat saturation through the brain. COMPARISON: [facility], CT, CT HEAD/BRAIN WO CON, 07/02/2018, 22:48. FINDINGS: Image quality: Excellent. CSF Spaces: Basal cisterns are patent. No extra-axial fluid collections. Ventricles are normal in size and shape. Brain: No midline shift. No intracranial bleeds or masses. No abnormal intracranial enhancement. The brainstem appears normal. Diffusion-weighted images demonstrate no acute ischemic insults. No chronic ischemic insults. Normal intravascular flow voids are present. Skull and face: Calvarial marrow is normal in signal. Orbits appear normal. Note is made of a cutaneous protuberance posterior to the left ear on the skin surface, measuring approximately 1 cm in diameter with slight enhancement over the cutaneous border. There is fatty signal in an area of vague hypoechoic space calcium void noted by CT scanning 07/02/18. This appears benign. Sinuses: Sinuses and mastoids appear clear. IMPRESSION: No protocol abnormality is seen that would explain seizure activity, no trauma from prior seizure is found. There is an unexpected finding of a cutaneous protuberance posterior to the left ear, superiorly, measuring approximately 1 cm in diameter and showing mild cutaneous enhancement. Direct clinical correlation is recommended 2 this structure. A malignant cutaneous lesion could produce this appearance. 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 Dictated by: Vasquez Craig M.D. on 07/14/2018 at 14:26 Approved by: Vasquez Craig M.D. on 07/14/2018 at 14:31
== END ==
PROVIDERS: PCP Internal Medicine; Visit Provider Internal Medicine
DX: G40.909 Epilepsy, unspecified, not intractable, without status epilepticus (principal)
CPT/HCPCS: 70553; A9579

== ENCOUNTER → 2018-07-16 12:27 | Outpatient (CLI) | payer MEDICARE, OTHER, SELFPAY ==
[2018-07-03 03:44] VITALS: BMI 15.4
[2018-07-16 13:03] VITALS: BP 129/73; PULSE 72; RESP 18; TEMP 36.8; O2SAT 99
[2018-07-16] MEDS: ZOLEDRONIC ACID 5 MG in SODIUM CHLORIDE 0.9% 100 ML 318.75 ML IV (13:29)
== END ==
PROVIDERS: PCP Internal Medicine; Visit Provider Internal Medicine
DX: M81.0 Age-related osteoporosis without current pathological fracture (principal)
CPT/HCPCS: 96374; J3489

== ENCOUNTER 2018-08-02 15:03 | Emergency (ER) | payer MEDICARE, OTHER, SELFPAY ==
[2018-07-03 03:44] VITALS: BMI 15.4
[2018-08-02] VITALS (7 sets, daily range): BP systolic 125–176; BP diastolic 85–111; PULSE 101–115; RESP 20–26; TEMP 36.8–36.9; O2SAT 91–99
--- NOTE | 2018-08-02 15:23 | ED.NAVMDI ---
HPI - Nausea/Vomiting/Diarrhea <David Morales, DO - Last Filed: 08/05/18 18:15> General Chief complaint: Nausea/Vomiting/Diarrhea Stated complaint: N/V/D x2 days Time Seen by Provider: 08/02/18 15:13 Source: patient and family Mode of arrival: ambulatory Limitations: no limitations History of Present Illness HPI Narrative: Patient is a 67-year-old female with a history of esophageal cancer not currently undergoing any treatment here for evaluation of 3-4 days of nausea vomiting and diarrhea. No other sick contacts. She also has abdominal pain but she states that the vomiting was the 1st thing that started. No fevers. At baseline does not take much oral intake and over the past couple days has had even less than normal. Does have 8 mg Zofran tablets at home which she has taken this medication this morning. Related Data Home Medications Medication Instructions Recorded Confirmed montelukast [Singulair] 10 mg PO QDAY #0 07/04/07 07/02/18 acetaminophen 325 mg PO Q4HP PRN #0 12/03/17 07/02/18 diphenhydramine-acetaminophen 1 tab PO HSP PRN #0 12/03/17 07/02/18 [Tylenol PM Extra Strength] pantoprazole [Protonix] 40 mg PO QDAY #0 12/03/17 07/02/18 hydrocodone-acetaminophen 1 tab PO Q4-6H PRN 07/02/18 07/02/18 lorazepam 1 mg PO QD-BID PRN 07/02/18 07/02/18 Previous Rx's Medication Instructions Recorded ondansetron [Zofran ODT] 4 mg SUBLINGUAL Q6HP PRN #20 odt 12/05/17 atenolol 25 mg PO DAILY #30 tab 07/05/18 levetiracetam [Keppra] 750 mg PO BID #60 tab 07/05/18 sertraline [Zoloft] 50 mg PO DAILY #30 tab 07/05/18 trazodone 50 mg PO DAILY #30 tab 07/05/18 ciprofloxacin HCl 500 mg PO BID 10 Days #20 tab 08/02/18 metronidazole 500 mg PO TID 10 Days #30 tab 08/02/18 Allergies Allergy/AdvReac Type Severity Reaction Status Date / Time simvastatin [SIMVASTATIN] AdvReac Unknown LEG Verified 08/02/18 15:23 CRAMPING sulfamethoxazole AdvReac Unknown DIARRHEA Verified 08/02/18 15:23 [From BACTRIM] trimethoprim [From BACTRIM] AdvReac Unknown DIARRHEA Verified 08/02/18 15:23 Review of Systems <DO Corina David Last Filed: 08/05/18 18:15> Constitutional Reports fatigue and Denies fever(s) Cardiovascular Denies chest pain, Denies palpitations and Denies dyspnea Respiratory Denies cough and Denies dyspnea Gastrointestinal Gastrointestinal: Reports abdominal pain, Denies coffee ground emesis, Reports diarrhea, Reports nausea and Reports vomiting Musculoskeletal Denies myalgias and Denies arthralgias Integumentary/Breasts Denies rash Endocrine Reports fatigue and Denies palpitations Hematologic/Lymphatic Denies easy bleeding and Denies easy bruising Exam <DO Corina David Last Filed: 08/05/18 18:15> Initial Vital Signs Initial Vital Signs: Vital Signs Temperature 98.3 F 08/02/18 15:20 Pulse Rate 110 H 08/02/18 15:20 Respiratory Rate 24 08/02/18 15:20 Blood Pressure 168/111 H 08/02/18 15:20 Pulse Oximetry 99 08/02/18 15:20 Const General: cooperative, No acute distress and frail appearing Orientation: alert, awake and oriented x3 HENDC Head: normal to inspection and normocephalic Resp Effort & Inspection: normal respiratory effort Auscultation: clear to auscultation bilaterally Cardio Rate: tachycardic Rhythm: regular rhythm Pulses: radial pulses present GI Inspection: non-distended Palpation: soft, No firm, No guarding, No rigid and tender Skin Lesions: no lesions Rashes: no rashes Neuro General: alert, awake and oriented x3 Speech: speech normal Extrem General: normal to inspection and capillary refill normal Psych Appearance: grossly normal and well kempt <Toshia Borrero DO - Last Filed: 08/02/18 21:32> Initial Vital Signs Initial Vital Signs: Vital Signs Temperature 98.3 F 08/02/18 15:20 Pulse Rate 110 H 08/02/18 15:20 Respiratory Rate 24 08/02/18 15:20 Blood Pressure 168/111 H 08/02/18 15:20 Pulse Oximetry 99 08/02/18 15:20 Course <David Morales DO - Last Filed: 08/05/18 18:15> Orders Ordered: Discontinued Medications Hydrocodone Bitart/Acetaminophen (Vicodin Prepack) 1 bottle MISC SEEINSTR ONE Stop: 08/02/18 19:53 Last Admin: 08/02/18 20:04 Dose: 1 bottle Ciprofloxacin (Cipro) 500 mg PO NOW ONE Stop: 08/02/18 18:30 Last Admin: 08/02/18 19:09 Dose: 500 mg Heparin Sodium (Porcine) (Heparin Lock Port) 500 unit IV PRN PRN PRN Reason: Flush Last Admin: 08/02/18 20:09 Dose: 500 unit Sodium Chloride (Normal Saline 0.9%) 1,000 mls @ 1,000 mls/hr IV BOLUS ONE Stop: 08/02/18 16:22 Last Infusion: 08/02/18 16:56 Dose: 0 mls/hr Admin: 08/02/18 15:54 Dose: 1,000 mls/hr Metronidazole (Metronidazole) 500 mg PO NOW ONE Stop: 08/02/18 18:30 Last Admin: 08/02/18 19:09 Dose: 500 mg Morphine Sulfate (Morphine) 4 mg IV NOW ONE Stop: 08/02/18 16:20 Last Admin: 08/02/18 16:26 Dose: 4 mg Ondansetron HCl (Zofran) 4 mg IV NOW ONE Stop: 08/02/18 15:24 Last Admin: 08/02/18 15:54 Dose: 4 mg Vital Signs - 8 hr 08/02/18 15:20 08/02/18 16:00 08/02/18 16:41 Temperature 98.3 F Pulse Rate 110 H 115 H 101 H Respiratory Rate 24 26 H 23 Blood Pressure 168/111 H Blood Pressure [Right Arm] 173/99 H 176/97 H Pulse Oximetry 99 99 91 08/02/18 17:30 08/02/18 18:30 08/02/18 19:48 Temperature Pulse Rate 103 H 101 H 101 H Respiratory Rate 20 20 22 Blood Pressure Blood Pressure [Right Arm] 150/94 H 127/90 125/85 Pulse Oximetry 93 96 95 08/02/18 20:23 Temperature 98.4 F Pulse Rate Respiratory Rate Blood Pressure Blood Pressure [Right Arm] Pulse Oximetry <Toshia Borrero DO - Last Filed: 08/02/18 21:32> Orders Ordered: Discontinued Medications Hydrocodone Bitart/Acetaminophen (Vicodin Prepack) 1 bottle MISC SEEINSTR ONE Stop: 08/02/18 19:53 Last Admin: 08/02/18 20:04 Dose: 1 bottle Ciprofloxacin (Cipro) 500 mg PO NOW ONE Stop: 08/02/18 18:30 Last Admin: 08/02/18 19:09 Dose: 500 mg Heparin Sodium (Porcine) (Heparin Lock Port) 500 unit IV PRN PRN PRN Reason: Flush Last Admin: 08/02/18 20:09 Dose: 500 unit Sodium Chloride (Normal Saline 0.9%) 1,000 mls @ 1,000 mls/hr IV BOLUS ONE Stop: 08/02/18 16:22 Last Infusion: 08/02/18 16:56 Dose: 0 mls/hr Admin: 08/02/18 15:54 Dose: 1,000 mls/hr Metronidazole (Metronidazole) 500 mg PO NOW ONE Stop: 08/02/18 18:30 Last Admin: 08/02/18 19:09 Dose: 500 mg Morphine Sulfate (Morphine) 4 mg IV NOW ONE Stop: 08/02/18 16:20 Last Admin: 08/02/18 16:26 Dose: 4 mg Ondansetron HCl (Zofran) 4 mg IV NOW ONE Stop: 08/02/18 15:24 Last Admin: 08/02/18 15:54 Dose: 4 mg Vital Signs - 8 hr 08/02/18 15:20 08/02/18 16:00 08/02/18 16:41 Temperature 98.3 F Pulse Rate 110 H 115 H 101 H Respiratory Rate 24 26 H 23 Blood Pressure 168/111 H Blood Pressure [Right Arm] 173/99 H 176/97 H Pulse Oximetry 99 99 91 08/02/18 17:30 08/02/18 18:30 08/02/18 19:48 Temperature Pulse Rate 103 H 101 H 101 H Respiratory Rate 20 20 22 Blood Pressure Blood Pressure [Right Arm] 150/94 H 127/90 125/85 Pulse Oximetry 93 96 95 08/02/18 20:23 Temperature 98.4 F Pulse Rate Respiratory Rate Blood Pressure Blood Pressure [Right Arm] Pulse Oximetry MDM - Nausea/Vomiting/Diarrhea <David Morales DO - Last Filed: 08/05/18 18:15> Lab Data Attestation: I reviewed the patient's lab results. Result diagrams: 08/02/18 15:40 08/02/18 15:40 Lab Results 08/02/18 08/02/18 08/02/18 Range/Units 15:40 15:40 16:12 WBC 6.8 (4.5-11.0) X10^3/uL RBC 3.88 L (4.0-5.2) X10^6/uL Hgb 11.9 L (12.0-16.0) g/dL Hct 35.4 L (36-46) % MCV 91.1 (80-100) fL MCH 30.7 (26-34) PG MCHC 33.7 (30-36) % RDW 13.4 (11.6-14.8) % Plt Count 279 (150-400) X10^3/uL Neut % (Auto) 77.2 H (50-75) % Lymph % (Auto) 11.5 L (25-40) % [place]ois % (Auto) 9.8 (3-14) % Eos % (Auto) 0.8 L (2-4) % Baso % (Auto) 0.7 (0-2) % Neut # (Auto) 5300 (0410-8687) /uL Sodium 142 (137-145) mmol/L Potassium 3.4 (3.4-5.1) mmol/L Chloride 102 (98-107) mmol/L Carbon Dioxide 27 (22-32) mmol/L BUN 16 (7-17) mg/dL Creatinine 0.50 L (0.52-1.04) mg/dL Estimated GFR > 60.0 (>60) mL/min BUN/Creatinine Ratio 32.0 H (6-22) Glucose 138 H (80-110) mg/dL Calcium 9.1 (8.4-10.2) mg/dL Total Bilirubin 0.5 (0.2-1.3) mg/dL AST 35 (14-36) IU/L ALT 38 (9-52) IU/L Alkaline Phosphatase 125 (38-126) U/L Total Protein 6.7 (6.3-8.2) g/dL Albumin 3.8 (3.5-5.0) g/dL Globulin 2.9 (1.7-4.1) g/dL Albumin/Globulin Ratio 1.3 (1.0-2.8) Lipase < 10 L (23-300) U/L Urine RBC None seen (0-5/HPF) Urine WBC 1-5/hpf (0-5/HPF) Ur Squamous Epith Cells 0-1 /hpf Urine Bacteria Few (2-10) H (None) Hyaline Casts 0-1/lpf (None) Granular Casts 0-1/lpf (None) Urine Mucus 2+ H (Negative) Ur Culture Indicated? Specimen cultured Micro UA Comment Not Reportable Urine Dip Bedside Urine Glucose Negative Bedside Urine Bilirubin - Negative Bedside Urine Ketone ++ 40 Urine Specific [place] 1.015 Bedside Urine Occult Blood - Negative Bedside Urine pH 8.0 Bedside Urine Protein +/- 15 Bedside Urine Urobilinogen - Negative Bedside Urine Nitrite - Negative Bedside Urine Leukocytes +++ [address] scan - abdomen: Radiologist's impression: PROCEDURE: CT ABDOMEN PELVIS W CON INDICATIONS: Left-sided abdominal pain TECHNIQUE: After the administration of intravenous contrast, 5 mm thick sections acquired from the diaphragm to the symphysis. 5 mm coronal and sagittal reformats were acquired. For radiation dose reduction, the following was used: automated exposure control, adjustment of mA and/or kV according to patient size. COMPARISON: [facility], CT, CT HEAD/BRAIN WO CON, 07/02/2018, 22:48. [facility], CT, CT CHEST ABDOMEN PELVIS WITH CONTRAST, 05/18/2018, 12:11. [facility], CT, ABDOMEN/PELVIS WITH CONTRAST, 12/05/2017, 12:15. [facility], CT, CT CHEST ABDOMEN WITH CONTRAST, 06/23/2017, 16:14. FINDINGS: Image quality: Excellent. ABDOMEN: Lung bases: Lung bases are clear. Heart size is normal. There is a large hiatal hernia. Solid organs: Liver is normal in size and enhancement. Gallbladder is unremarkable. Biliary system is non dilated. Pancreas enhances normally. Spleen is normal in size and enhancement. No adrenal nodules. Kidneys demonstrate normal size and enhancement, without hydronephrosis. Subcentimeter hypoattenuating focus along the posterior left kidney is too small to fully characterize on this exam but likely represents a renal cyst. Peritoneum and bowel: There is diffuse sigmoid colon wall thickening with numerous diverticula identified. There is pericolonic fat stranding with adjacent free fluid surrounding the sigmoid colon. No well formed drainable abscess is identified. No convincing free intraperitoneal air is seen. The appendix cannot be clearly identified on this exam, but there are no right lower quadrant inflammatory findings to suggest acute appendicitis. Nodes and vessels: No retroperitoneal or mesenteric adenopathy by size criteria. Aorta and inferior vena cava are normal in size. There is severe calcified plaque of the abdominal aorta and branch vessels. Miscellaneous: No ventral hernias. PELVIS: Genitourinary: Bladder wall thickness is diffusely thickened. Miscellaneous: No inguinal hernias or adenopathy. Bones: There are multiple degenerative changes of the lumbar spine. There are severe compression deformities of T11 and T12 vertebral body, which appear chronic. IMPRESSION: Acute sigmoid colon diverticulitis with adjacent free fluid. No pericolonic abscess is identified. There is no free intraperitoneal air to suggest perforation Large hiatal hernia. Mild diffuse bladder wall thickening, which can be seen with bladder outlet obstruction or urinary tract infection. Correlation with urinalysis recommended. Dictated by: Lane Riley M.D. on 08/02/2018 at 18:13 Appro[address] by: Lane Riley M.D. on 08/02/2018 at 18:24 MDM Narrative Medical decision making narrative: Patient's urinalysis has elevated ketones but no other signs of infection. Heart rate has improved with fluids. CT scan was ordered secondary to the patient's abdominal pain. She states that her nausea has greatly improved after the pain medication she received here in the emergency department. She states that she has had some diarrhea while being here. CT scan shows sigmoid diverticulitis. Care turned over to night provider to evaluate how she tolerates the oral challenge. <Toshia Borrero, DO - Last Filed: 08/02/18 21:32> Lab Data Lab Results 08/02/18 08/02/18 08/02/18 Range/Units 15:40 15:40 16:12 WBC 6.8 (4.5-11.0) X10^3/uL RBC 3.88 L (4.0-5.2) X10^6/uL Hgb 11.9 L (12.0-16.0) g/dL Hct 35.4 L (36-46) % MCV 91.1 (80-100) fL MCH 30.7 (26-34) PG MCHC 33.7 (30-36) % RDW 13.4 (11.6-14.8) % Plt Count 279 (150-400) X10^3/uL Neut % (Auto) 77.2 H (50-75) % Lymph % (Auto) 11.5 L (25-40) % Dubois % (Auto) 9.8 (3-14) % Eos % (Auto) 0.8 L (2-4) % Baso % (Auto) 0.7 (0-2) % Neut # (Auto) 5300 (5465-1254) /uL Sodium 142 (137-145) mmol/L Potassium 3.4 (3.4-5.1) mmol/L Chloride 102 (98-107) mmol/L Carbon Dioxide 27 (22-32) mmol/L BUN 16 (7-17) mg/dL Creatinine 0.50 L (0.52-1.04) mg/dL Estimated GFR > 60.0 (>60) mL/min BUN/Creatinine Ratio 32.0 H (6-22) Glucose 138 H (80-110) mg/dL Calcium 9.1 (8.4-10.2) mg/dL Total Bilirubin 0.5 (0.2-1.3) mg/dL AST 35 (14-36) IU/L ALT 38 (9-52) IU/L Alkaline Phosphatase 125 (38-126) U/L Total Protein 6.7 (6.3-8.2) g/dL Albumin 3.8 (3.5-5.0) g/dL Globulin 2.9 (1.7-4.1) g/dL Albumin/Globulin Ratio 1.3 (1.0-2.8) Lipase < 10 L (23-300) U/L Urine RBC None seen (0-5/HPF) Urine WBC 1-5/hpf (0-5/HPF) Ur Squamous Epith Cells 0-1 /hpf Urine Bacteria Few (2-10) H (None) Hyaline Casts 0-1/lpf (None) Granular Casts 0-1/lpf (None) Urine Mucus 2+ H (Negative) Ur Culture Indicated? Specimen cultured Micro UA Comment Not Reportable Urine Dip Bedside Urine Glucose Negative Bedside Urine Bilirubin - Negative Bedside Urine Ketone ++ 40 Urine Specific [place] 1.015 Bedside Urine Occult Blood - Negative Bedside Urine pH 8.0 Bedside Urine Protein +/- 15 Bedside Urine Urobilinogen - Negative Bedside Urine Nitrite - Negative Bedside Urine Leukocytes +++ 500 Esterase MDM Narrative Medical decision making narrative: Patient labs, CT reviewed. Patient has diveriticulitis with no elevation of WBC, no signs of perforation or abscess. Vitals improving in department. Patient felt much better after medications. Plan for po challenge and re-evaluate. If patient can tolerate po's and stable plan for D/C home with antibiotics. If unable to tolerate or worsening plan for observation. Recheck on patient, she is feeling much better, asked about something for pain at home. Discussed doing a norco prepack for tonight. She has been able to keep liquids down for the past 1 hour+ and if feeling better. Discussed plan, reasons to return and answered all questions. Discharge Plan Departure Patient Disposition: Home Clinical Impression: Diverticulitis, Nausea & vomiting, Abdominal pain, Diarrhea, Acute dehydration Discharge Date/Time: 08/02/18 20:24 Interventions: ED Discharge Assessment Last Done: 08/02/18 20:23 Instructions: DI for Diverticulitis, Nausea and Vomiting-Adult Activity Restrictions/Additional Instructions: Make sure you are increase your fluid intake. You were given the 1st dose of antibiotics here in the emergency department. The next dose will be on Friday morning. Return to the emergency department for any new or worsening symptoms Prescriptions: New ciprofloxacin HCl 500 mg tablet 500 mg PO BID 10 Days Qty: 20 RF: 0 metronidazole 500 mg tablet 500 mg PO TID 10 Days Qty: 30 RF: 0 No Action montelukast [Singulair] 10 MG tablet 10 mg PO QDAY Qty: 0 RF: 0 acetaminophen 325 MG tablet 325 mg PO Q4HP PRN (Reason: Abdominal Discomfort) Qty: 0 RF: 0 pantoprazole [Protonix] 40 MG tablet,delayed release (DR/EC) 40 mg PO QDAY Qty: 0 RF: 0 diphenhydramine-acetaminophen [Tylenol PM Extra Strength] 500 MG/25 MG tablet 1 tab PO HSP PRN (Reason: Pain (Scale Score 1-3)) Qty: 0 RF: 0 ondansetron [Zofran ODT] 4 MG tablet,disintegrating 4 mg Sublingual Q6HP PRNQty: 20 RF: 0 hydrocodone-acetaminophen 5-325 mg Tablet 1 tab PO Q4-6H PRN (Reason: Breakthrough Pain, Moderate) RF: 0 lorazepam 1 mg Tablet 1 mg PO QD-BID PRN (Reason: Anxiety) RF: 0 atenolol 25 mg Tablet 25 mg PO DAILY Qty: 30 RF: 3 trazodone 50 mg tablet 50 mg PO DAILY Qty: 30 RF: 3 levetiracetam [Keppra] 750 mg tablet 750 mg PO BID Qty: 60 RF: 3 sertraline [Zoloft] 50 mg tablet 50 mg PO DAILY Qty: 30 RF: 3
[2018-08-02] MEDS: SODIUM CHLORIDE 0.9% 1,000 ML 1000 ML IV (15:54)
[2018-08-02] MEDS: ONDANSETRON 4 MG/2 ML INJ IV (15:54)
[2018-08-02 15:57] LABS: Add Manual Diff / Slide Review NO; Basophils Percent Auto 0.7 % (0-2); Eosinophils Percent Auto 0.8 % (2-4); Hematocrit 35.4 % (36-46); Hemoglobin 11.9 g/dL (12.0-16.0); Lymphocytes Percent Auto 11.5 % (25-40); Mean Corpuscular HGB Conc 33.7 % (30-36); Mean Corpuscular Hemoglobin 30.7 PG (26-34); Mean Corpuscular Volume 91.1 fL (80-100); Monocytes Percent Auto 9.8 % (3-14); Neutrophils Absolute Auto 5300 /uL (3000-5900); Neutrophils Percent Auto 77.2 % (50-75); Platelet Count 279 X10^3/uL (150-400); Red Blood Cell Count 3.88 X10^6/uL (4.0-5.2); Red Cell Distribution Width 13.4 % (11.6-14.8); White Blood Cell Count 6.8 X10^3/uL (4.5-11.0)
--- NOTE | 2018-08-02 16:01 | DI.CT.S_ITS ---
PROCEDURE: CT ABDOMEN PELVIS W CON INDICATIONS: Left-sided abdominal pain TECHNIQUE: After the administration of intravenous contrast, 5 mm thick sections acquired from the diaphragm to the symphysis. 5 mm coronal and sagittal reformats were acquired. For radiation dose reduction, the following was used: automated exposure control, adjustment of mA and/or kV according to patient size. COMPARISON: [facility], CT, CT HEAD/BRAIN WO CON, 07/02/2018, 22:48. [facility], CT, CT CHEST ABDOMEN PELVIS WITH CONTRAST, 05/18/2018, 12:11. [facility], CT, ABDOMEN/PELVIS WITH CONTRAST, 12/05/2017, 12:15. [facility], CT, CT CHEST ABDOMEN WITH CONTRAST, 06/23/2017, 16:14. FINDINGS: Image quality: Excellent. ABDOMEN: Lung bases: Lung bases are clear. Heart size is normal. There is a large hiatal hernia. Solid organs: Liver is normal in size and enhancement. Gallbladder is unremarkable. Biliary system is non dilated. Pancreas enhances normally. Spleen is normal in size and enhancement. No adrenal nodules. Kidneys demonstrate normal size and enhancement, without hydronephrosis. Subcentimeter hypoattenuating focus along the posterior left kidney is too small to fully characterize on this exam but likely represents a renal cyst. Peritoneum and bowel: There is diffuse sigmoid colon wall thickening with numerous diverticula identified. There is pericolonic fat stranding with adjacent free fluid surrounding the sigmoid colon. No well formed drainable abscess is identified. No convincing free intraperitoneal air is seen. The appendix cannot be clearly identified on this exam, but there are no right lower quadrant inflammatory findings to suggest acute appendicitis. Nodes and vessels: No retroperitoneal or mesenteric adenopathy by size criteria. Aorta and inferior vena cava are normal in size. There is severe calcified plaque of the abdominal aorta and branch vessels. Miscellaneous: No ventral hernias. PELVIS: Genitourinary: Bladder wall thickness is diffusely thickened. Miscellaneous: No inguinal hernias or adenopathy. Bones: There are multiple degenerative changes of the lumbar spine. There are severe compression deformities of T11 and T12 vertebral body, which appear chronic. IMPRESSION: Acute sigmoid colon diverticulitis with adjacent free fluid. No pericolonic abscess is identified. There is no free intraperitoneal air to suggest perforation Large hiatal hernia. Mild diffuse bladder wall thickening, which can be seen with bladder outlet obstruction or urinary tract infection. Correlation with urinalysis recommended. Dictated by: Lane Riley M.D. on 08/02/2018 at 18:[address] by: Lane Riley M.D. on 08/02/2018 at 18:24
[2018-08-02 16:08] LABS: Alanine Aminotransferase 38 IU/L (9-52); Albumin 3.8 g/dL (3.5-5.0); Albumin Globulin Ratio 1.3 (1.0-2.8); Alkaline Phosphatase 125 U/L (38-126); Aspartate Aminotransferase 35 IU/L (14-36); Bilirubin Total 0.5 mg/dL (0.2-1.3); Blood Urea Nitrogen 16 mg/dL (7-17); Calcium 9.1 mg/dL (8.4-10.2); Carbon Dioxide 27 mmol/L (22-32); Chloride 102 mmol/L (98-107); Estimated Glomerular Filt Rate > 60.0 mL/min (>60); Globulin 2.9 g/dL (1.7-4.1); Glucose 138 mg/dL (80-110); HEMOLYSIS < 15 (0-50); Potassium 3.4 mmol/L (3.4-5.1); Sodium 142 mmol/L (137-145); Total Protein 6.7 g/dL (6.3-8.2)
[2018-08-02 16:09] LABS: Lipase < 10 U/L (23-300)
[2018-08-02] MEDS: MORPHINE 4 MG/ML INJ IV (16:26)
[2018-08-02 16:29] LABS: RBC Urine None Seen (0-5/HPF)
[2018-08-02 16:39] LABS: Squamous Epithelial Cell Urine 0-1 /HPF; WBC Urine 1-5/HPF (0-5/HPF)
[2018-08-02 16:40] LABS: Bacteria Urine Few (2-10); Culture Indicated Urine Specimen Cultured; Granular Casts Urine 0-1/LPF; Hyaline Casts Urine 0-1/LPF; Mucus Urine 2+ (Negative)
[2018-08-02] MEDS: metroNIDAZOLE 250 MG TABLET 500 MG PO (19:09)
[2018-08-02] MEDS: CIPROFLOXACIN 500 MG TABLET PO (19:09)
[2018-08-02] MEDS: HYDROCODONE/ACET 5/325 PREPACK 1 BOTTLE MISC (20:04)
== END 2018-08-02 20:24 | disposition home or self-care (01) ==
PROVIDERS: Emergency Medicine; Emergency Provider Emergency Medicine; PCP Internal Medicine
DX: K57.92 Diverticulitis of intestine, part unspecified, without perforation or abscess without bleeding (principal); E86.0 Dehydration; R19.7 Diarrhea, unspecified; R10.9 Unspecified abdominal pain; R11.2 Nausea with vomiting, unspecified
CPT/HCPCS: 36591; 74177; 80053; 81003; 81015; 83690; 85025; 87077; 87086; 87186; 96361; 96374; 96375; 99283; 99285; J1642; J2270; J2405; Q9967

== ENCOUNTER 2018-08-18 15:15 | Emergency (ER) | payer MEDICARE, OTHER, SELFPAY ==
[2018-07-03 03:44] VITALS: BMI 15.4
[2018-08-18 15:37] VITALS: BP 158/98; PULSE 103; RESP 22; TEMP 36.7; O2SAT 97
[2018-08-18] MEDS: ONDANSETRON 4 MG/2 ML INJ IV (15:40)
[2018-08-18 16:15] LABS: Add Manual Diff / Slide Review NO; Basophils Percent Auto 0.4 % (0-2); Hematocrit 36.1 % (36-46); Hemoglobin 11.8 g/dL (12.0-16.0); Lymphocytes Percent Auto 5.5 % (25-40); Mean Corpuscular HGB Conc 32.8 % (30-36); Mean Corpuscular Hemoglobin 29.7 PG (26-34); Mean Corpuscular Volume 90.6 fL (80-100); Monocytes Percent Auto 3.3 % (3-14); Neutrophils Absolute Auto 6600 /uL (3000-5900); Neutrophils Percent Auto 90.8 % (50-75); Platelet Count 323 X10^3/uL (150-400); Red Blood Cell Count 3.98 X10^6/uL (4.0-5.2); Red Cell Distribution Width 13.8 % (11.6-14.8); White Blood Cell Count 7.3 X10^3/uL (4.5-11.0)
--- NOTE | 2018-08-18 16:17 | PC.NURSE ---
1617 pt reports feeling improved nausea and discomfort after meds/fluids/repositioning, bedside
[2018-08-18 16:21] LABS: INR 1.2 (0.9-1.3); Prothrombin Time 12.8 SECONDS (10.1-12.7)
[2018-08-18 16:24] LABS: PTT Partial Thromboplastin Tim 33 SECONDS (26.4-36.2)
[2018-08-18 16:25] LABS: Alanine Aminotransferase 25 IU/L (9-52); Albumin Globulin Ratio 1.3 (1.0-2.8); Alkaline Phosphatase 78 U/L (38-126); Aspartate Aminotransferase 30 IU/L (14-36); Bilirubin Total 0.8 mg/dL (0.2-1.3); Blood Urea Nitrogen 14 mg/dL (7-17); Carbon Dioxide 24 mmol/L (22-32); Chloride 101 mmol/L (98-107); Estimated Glomerular Filt Rate > 60.0 mL/min (>60); Glucose 163 mg/dL (80-110); HEMOLYSIS < 15 (0-50); Lipase 14 U/L (23-300); Sodium 140 mmol/L (137-145)
--- NOTE | 2018-08-18 17:01 | ED_ITS ---
HPI - Nausea/Vomiting/Diarrhea General Chief complaint: Nausea/Vomiting/Diarrhea Stated complaint: N/V/D Time Seen by Provider: 08/18/18 16:39 Source: patient Mode of arrival: ambulatory Limitations: no limitations History of Present Illness HPI Narrative: Patient is a 67-year-old female who presents with nausea vomiting abdominal pain. She has a history of esophageal cancer and was diagnosed with diverticulitis on August 02. She said she finished her Cipro and Flagyl yesterday. She is here with a family member who states this often happens to her he thinks is related to anxiety. She has not had any fever she does continue to have some left lower quadrant pain but more complaining of some back pain. She is unable to keep anything in. MD complaint: nausea, vomiting and abdominal pain Location of pain: LLQ Related Data Home Medications Medication Instructions Recorded Confirmed montelukast [Singulair] 10 mg PO DAILY #0 07/04/07 08/18/18 acetaminophen 325 mg PO Q4HP PRN #0 12/03/17 08/18/18 diphenhydramine-acetaminophen 1 tab PO HSP PRN #0 12/03/17 08/18/18 [Tylenol PM Extra Strength] pantoprazole [Protonix] 40 mg PO DAILY #0 12/03/17 08/18/18 Calcium 500 + D 1 tab PO QPM 08/18/18 08/18/18 calcitonin (salmon) 1 spray INTRANASAL DAILY 08/18/18 08/18/18 clonazepam 0.25 mg TRANSLINGUAL PRN PRN MDD 2 08/18/18 08/18/18 escitalopram oxalate 20 mg PO DAILY 08/18/18 08/18/18 hydrocodone-acetaminophen 1 tab PO Q8H PRN 08/18/18 08/18/18 lorazepam 1 mg PO BID PRN 08/18/18 08/18/18 ondansetron 8 mg PO Q12H PRN 08/18/18 08/18/18 ondansetron HCl 4 mg PO BID PRN 08/18/18 08/18/18 sertraline 100 mg PO DAILY 08/18/18 08/18/18 trazodone 50 mg PO BEDTIME 08/18/18 08/18/18 Previous Rx's Medication Instructions Recorded atenolol 25 mg PO DAILY #30 tab 07/05/18 levetiracetam [Keppra] 750 mg PO BID #60 tab 07/05/18 Allergies Allergy/AdvReac Type Severity Reaction Status Date / Time simvastatin [SIMVASTATIN] AdvReac Unknown LEG Verified 08/02/18 15:23 CRAMPING sulfamethoxazole AdvReac Unknown DIARRHEA Verified 08/02/18 15:23 [From BACTRIM] trimethoprim [From BACTRIM] AdvReac Unknown DIARRHEA Verified 08/02/18 15:23 Review of Systems Review of Systems GENERAL: Denies chills, fatigue, malaise, fever, sweats, travel HEENT: Denies sinus pain, ear pain, sore throat, difficulty swallowing, neck pain RESPIRATORY: Denies dyspnea, cough, wheezing, hemoptysis, sputum. CARDIOVASCULAR: Denies chest pain, palpitations, orthopnea, edema GASTROINTESTINAL: See HPI : Denies dysuria, frequency, incontinence, hematuria, urinary retention, flank pain. MUSCULOSKELETAL: Denies weakness, joint pain, or bony pain SKIN: No rash, no erythema, no pruritus NEUROLOGIC: Denies weakness, dizziness, headache, numbness, change in speech, confusion PSYCHIATRIC: No concerning psychosocial issues. 12 point review of systems is negative except for those stated above and HPI PFSH Medical History Upper GI bleed (Acute) Post surgical complication (Acute) Esophageal cancer (Acute) Acute anxiety (Inactive) Surgical History History of esophageal surgery (Acute) History of kyphoplasty (Acute) No pertinent past surgical history (Acute) Social History household members: spouse housing: house Smoking Status: Never smoker alcohol intake: former substance use type: does not use Exam Initial Vital Signs Initial Vital Signs: Vital Signs Temperature 98.0 F 08/18/18 15:37 Pulse Rate 103 H 08/18/18 15:37 Respiratory Rate 22 08/18/18 15:37 Blood Pressure 158/98 H 08/18/18 15:37 Pulse Oximetry 97 08/18/18 15:37 GENERAL: Thin cachectic elderly female in no acute distress HEENT: Head atraumatic,EOMI, pupils reactive, face symmetric, dry mucous membranes CARDIOVASCULAR: Regular rate and rhythm without murmurs, rubs or gallops. RESPIRATORY: Breath sounds equal bilaterally, no wheezes rales or rhonchi. ABDOMEN: Soft, mild tenderness left lower quadrant no guarding or rebound EXTREMITIES: Normal range of motion, no clubbing or edema. Neurovascularly intact NEUROLOGICAL: Alert and oriented x4.Normal gait and speech. Cranial nerves II through XII grossly intact. SKIN: Warm, dry, no laceration, no petechiae, no rashes or lesions. Course Orders Ordered: ED Orders 08/18/18 16:06 Complete Blood Count AUTO DIFF Stat Comprehensive Metabolic Panel Stat Lipase Stat Partial Thromboplastin Time Stat Prothrombin Time INR Stat 08/18/18 17:01 CT abdomen pelvis w con Stat 08/18/18 18:15 Urine Microscopic Stat Discontinued Medications Ondansetron HCl (Zofran) 4 mg IV NOW ONE Stop: 08/18/18 15:37 Last Admin: 08/18/18 15:40 Dose: 4 mg Vital Signs - 8 hr 08/18/18 15:37 08/18/18 17:48 Temperature 98.0 F Pulse Rate 103 H 94 H Respiratory Rate 22 17 Blood Pressure 158/98 H Blood Pressure [Right Arm] 150/100 H Pulse Oximetry 97 98 MDM - Nausea/Vomiting/Diarrhea Lab Data Attestation: I reviewed the patient's lab results. Result diagrams: 08/18/18 16:06 08/18/18 16:06 Lab Results 08/18/18 08/18/18 08/18/18 Range/Units 16:06 16:06 16:06 WBC 7.3 (4.5-11.0) X10^3/uL RBC 3.98 L (4.0-5.2) X10^6/uL Hgb 11.8 L (12.0-16.0) g/dL Hct 36.1 (36-46) % MCV 90.6 (80-100) fL MCH 29.7 (26-34) PG MCHC 32.8 (30-36) % RDW 13.8 (11.6-14.8) % Plt Count 323 (150-400) X10^3/uL Neut % (Auto) 90.8 H (50-75) % Lymph % (Auto) 5.5 L (25-40) % [place] % (Auto) 3.3 (3-14) % Eos % (Auto) 0.0 L (2-4) % Baso % (Auto) 0.4 (0-2) % Neut # (Auto) 6600 H (0351-8021) /uL PT 12.8 H (10.1-12.7) SECONDS INR 1.2 (0.9-1.3) APTT 33 (26.4-36.2) SECONDS Sodium 140 (137-145) mmol/L Potassium 3.0 L (3.4-5.1) mmol/L Chloride 101 (98-107) mmol/L Carbon Dioxide 24 (22-32) mmol/L BUN 14 (7-17) mg/dL Creatinine 0.40 L (0.52-1.04) mg/dL Estimated GFR > 60.0 (>60) mL/min BUN/Creatinine Ratio 35.0 H (6-22) Glucose 163 H (80-110) mg/dL Calcium 8.0 L (8.4-10.2) mg/dL Total Bilirubin 0.8 (0.2-1.3) mg/dL AST 30 (14-36) IU/L ALT 25 (9-52) IU/L Alkaline Phosphatase 78 (38-126) U/L Total Protein 7.0 (6.3-8.2) g/dL Albumin 4.0 (3.5-5.0) g/dL Globulin 3.0 (1.7-4.1) g/dL Albumin/Globulin Ratio 1.3 (1.0-2.8) Lipase 14 L (23-300) U/L Urine Dip Bedside Urine Glucose Negative Bedside Urine Bilirubin - Negative Bedside Urine Ketone + 15 Urine Specific [place] 1.010 Bedside Urine Occult Blood +/- Bedside Urine pH 8.0 Bedside Urine Protein - Negative Bedside Urine Urobilinogen - Negative Bedside Urine Nitrite - Negative Bedside Urine Leukocytes - Negative Esterase Imaging Data CT scan - abdomen: Radiologist's impression: PROCEDURE: CT ABDOMEN PELVIS W CON INDICATIONS: llq pain vomiting recent diverticulitits and esophageal TECHNIQUE: After the administration of oral and intravenous contrast, 5 mm thick sections acquired from the diaphragms to the symphysis. 5 mm thick coronal and sagittal reformats were performed. For radiation dose reduction, the following was used: automated exposure control, adjustment of mA and/or kV according to patient size. COMPARISON: [facility], CT, CT ABDOMEN PELVIS W CON, 08/02/2018, 16:05. [facility], CT, CT CHEST ABDOMEN PELVIS WITH CONTRAST, 05/18/2018, 12:11. [facility], CT, CT CHEST ABDOMEN WITH CONTRAST, 06/23/2017, 16:14. FINDINGS: Image quality: Suboptimal related to motion artifact. This is especially limiting through the upper abdomen. ABDOMEN: Lung bases: Lung bases are clear. Heart size is normal. Solid organs: The liver is hypodense when compared to the spleen. The spleen and liver are otherwise unremarkable. The adrenals and pancreas are grossly within normal limits, but not well evaluated. The kidneys are also grossly unremarkable. No definite hydronephrosis is appreciated. There may be an extrarenal pelvis on the left. Peritoneum and bowel: Prominent distention of the lower esophagus is evident, which likely represents a prior gastric pull through. Fluid is seen within the this structure. Small bowel loops are nondilated. Patchy areas of prominent colonic wall thickening are appreciated, most notable within the sigmoid colon. There is mild hyperemia within the adjacent mesentery. No free fluid, loculated fluid collection or free air is evident. Nodes and vessels: No retroperitoneal or mesenteric adenopathy. Aorta and inferior vena cava are normal in caliber. There is prominent aortic atherosclerosis. Bones: Compression deformities are noted involving the T11 and T12 vertebral bodies with kyphoplasty/vertebroplasty changes at the T12 level. The degree of anterior wedging is unchanged. No suspicious osseous lesions or acute fractures are evident. No new compression fractures are identified. PELVIS: Genitourinary: Mild thickening of the urinary bladder wall is noted. Miscellaneous: No inguinal hernias or adenopathy. No free fluid or loculated fluid collection seen within the pelvis. Bones: No suspicious bony lesions. No acute pelvic fractures are evident. There mild degenerative changes of the pelvic joints. IMPRESSION: 1. Patchy thickening of the wall of the colon is suggestive of colitis, which may be infectious or inflammatory in nature. 2. No bowel obstruction or intraperitoneal abscess. 3. Postoperative changes the stomach and esophagus are. No evidence of metastatic disease. 4. Probable mild hepatic steatosis. 5. Nonspecific urinary bladder thickening. These correlate clinically to exclude cystitis. Dictated by: Riley Velazco M.D. on 08/18/2018 at 16:39 MDM Narrative Medical decision making narrative: Patient is tolerating oral fluids. CT does she still show some colitis however she just finished antibiotics yesterday. No leukocytosis. She feels better ready and able to go home. She does have Zofran at home. I offered suppositories for her however she does not like those. Discharge Plan Departure Patient Disposition: Home Clinical Impression: Gastroenteritis Instructions: DI for Viral Gastroenteritis -- Adult Activity Restrictions/Additional Instructions: *You have been diagnosed with gastroenteritis *What to do: Clear liquid diet, Gatorade, Jell-O juice, etc small sips frequently *Continue to take medications as directed *Follow up with your primary care provider in 2-3 days *Return to ER if you should have inability to tolerate fluids or any new, worsening or concerning symptoms Prescriptions: No Action montelukast [Singulair] 10 MG tablet 10 mg PO DAILY Qty: 0 RF: 0 acetaminophen 325 MG tablet 325 mg PO Q4HP PRN (Reason: Abdominal Discomfort) Qty: 0 RF: 0 pantoprazole [Protonix] 40 MG tablet,delayed release (DR/EC) 40 mg PO DAILY Qty: 0 RF: 0 diphenhydramine-acetaminophen [Tylenol PM Extra Strength] 500 MG/25 MG tablet 1 tab PO HSP PRN (Reason: Pain (Scale Score 1-3)) Qty: 0 RF: 0 hydrocodone-acetaminophen 5-325 mg tablet 1 tab PO Q8H PRN (Reason: pain) RF: 0 calcitonin (salmon) 200 unit/actuation spray,non-aerosol 1 spray Intranasal DAILY RF: 0 lorazepam 1 mg tablet 1 mg PO BID PRN (Reason: anxiety or sleep) RF: 0 escitalopram oxalate 20 mg tablet 20 mg PO DAILY RF: 0 clonazepam 0.25 mg tablet,disintegrating 0.25 mg Translingual PRN MDD 2 PRN (Reason: Acid Reflux) RF: 0 ondansetron HCl 4 mg tablet 4 mg PO BID PRN (Reason: Nausea) RF: 0 sertraline 100 mg tablet 100 mg PO DAILY RF: 0 ondansetron 8 mg tablet,disintegrating 8 mg PO Q12H PRN (Reason: Nausea And Vomiting) RF: 0 Calcium 500 + D 2,000 mg 1 tab PO QPM RF: 0 trazodone 50 mg tablet 50 mg PO BEDTIME RF: 0 atenolol 25 mg Tablet 25 mg PO DAILY Qty: 30 RF: 3 levetiracetam [Keppra] 750 mg tablet 750 mg PO BID Qty: 60 RF: 3 Referrals: Ana Lyn MD [Primary Care Provider] -
[2018-08-18 17:48] VITALS: BP 150/100; PULSE 94; RESP 17; O2SAT 98
[2018-08-18 18:31] LABS: Bacteria Urine None Seen; RBC Urine None Seen (0-5/HPF)
[2018-08-18 18:58] VITALS: BP 140/72; PULSE 80; RESP 18; O2SAT 96
[2018-08-18 18:58] LABS: WBC Urine 0-1/HPF (0-5/HPF)
== END 2018-08-18 19:00 | disposition home or self-care (01) ==
PROVIDERS: Emergency Provider Emergency Medicine; PCP Internal Medicine
DX: K52.9 Noninfective gastroenteritis and colitis, unspecified (principal)
CPT/HCPCS: 36415; 74177; 80053; 81003; 81015; 83690; 85025; 85610; 85730; 96374; 99282; 99285; J2405; Q9967

== ENCOUNTER 2018-08-19 11:41 | Inpatient (IN) | payer MEDICARE, OTHER, SELFPAY ==
[2018-07-03 03:44] VITALS: BMI 15.4
[2018-08-19 11:50] VITALS: BMI 14.6
[2018-08-19] MEDS: LORazepam 2 MG/ML SYRINGE 1 MG IV (12:41)
--- NOTE | 2018-08-19 14:04 | ONC.NAV ---
Description: Crisis Care Coordination Activity: Met with pt, spouse and Dr. Ana Lyn for a pt conference today at Dr. Lyn's office. Pt is declining rapidly again, is unable to tolerate any kind of activity that involves attending to her own ADL's, going outside the home, or decision-making. She's back to her baseline of psychosomatic vomiting, nausea and severe emotional lability. ECOG Performance Status is-3: Capable of limited self-care, confined to bed or chair more than 50% of waking hours. She is quickly becoming a 4-completely disabled, or gravely disabled. She has not eaten in 36-hours, she's lost another 9-lbs, and is down to 83-lbs. She is not able to bath or take care of personal hygiene without assistance, complains of constant pain in her back and stomach, and is unable to follow caregivier instructions once she has begun esculating into a full-blown panic attack. Spouse is exhausted and out of ideas to help her. He expressed to Dr. Lyn today, I don't know how I am going to be able to keep taking care of her like this. Both this CHEMICAL WEIGHER and Dr. Lyn agreed that this patient would be best served in an inpatient psychiatric/medical facility that can better assess, on the inpt level, her psychiatric/medical needs as they present in this very complicated sequelae following her treatment for esophageal cancer. Plan: Dr. Lyn assessed pt and had her directly admitted to [facility] for work-up and further stabilization. This CHEMICAL WEIGHER will f/u with care management to coordinate pt's inpt needs, with the goal of also pursuing a transfer to inpt behavioral health treatment.
[2018-08-19 14:13] VITALS: BP 146/84; PULSE 105; RESP 16; TEMP 36.8; O2SAT 98
--- NOTE | 2018-08-19 15:10 | PM.HP.1 ---
History of Present Illness Date Patient Seen: 08/19/18 Chief complaint: hypokalemia,nausea,vomiting,diarrhea Narrative: The patient is a 67-year-old female with a history of esophageal cancer who presents with intractable nausea vomiting and diarrhea. Patient was admitted to the hospital in June of this year. She was treated for acute colitis. She was discharged on levofloxacin and Flagyl for her colitis. She discontinued the antibiotics a few days ago. History has been obtained from the patient as well as from her . According to the the patient has a severe anxiety disorder. The anxiety is manifested by nausea and vomiting. She vomits phlegm. She has been unable to eat signet amounts to maintain her weight. She is current kilos. The patient has anxiety which is provoked by leaving the home. She underwent evaluation by Neurology to include an EEG on Friday. She met with the neurologist yesterday. Following her evaluation she became very anxious. She develop nausea and vomiting, and abdominal pain. Patient reports having 5 loose stools per day. She reports having occasional bloody stool. She has not vomited up any blood. She reports a 30 lb weight loss over the past year. According to her the patient has a severe anxiety disorder. She has been followed by social science teacher at the [facility]. She has an appointment to see Dr. Bermudez but has yet to see her. Dr. Bermudez has been working with Dr. Lyn to modify her medical regimen to improve her anxiety. Plans are in place for her to have inpatient psychiatric evaluation. Unfortunately given her multiple medical problems in addition to anxiety disorder is been difficult to find a place for her. Her is convinced that her current symptomatology is related to anxiety. Patient was due seen in the emergency department last night. She underwent a CT of the abdomen and pelvis which was negative for obstruction. Her laboratory studies were unremarkable except for hypokalemia. The patient was discharged back home. I received a call today from Dr. Lyn who recommended inpatient admission given her persistent vomiting and hypokalemia. She is admitted at this time for further evaluation. The patient does complain of back pain. She has a compression fracture, she also has had some incontinence to urine. Patient History Medical History Upper GI bleed (Acute) Post surgical complication (Acute) Esophageal cancer (Acute) Acute anxiety (Inactive) Surgical History History of esophageal surgery (Acute) History of kyphoplasty (Acute) No pertinent past surgical history (Acute) Family & Social History Family History: Reviewed 08/19/18 by Anneliese Crow MD Social History: household members spouse Prior Living Arrangements House Safety & Behavioral: Feels Safe in Current Yes Environment Been Physically Hurt or No Threatened By a Person Suicidal Ideation Description None Tobacco & Substance use: Smoking Status Former smoker alcohol intake former alcohol intake frequency 0-2 drinks per day Substance Use Type does not use Meds Home Medications Medication Instructions Recorded Confirmed Type montelukast [Singulair] 10 mg PO DAILY #0 07/04/07 08/19/18 History acetaminophen 325 mg PO Q4HP PRN #0 12/03/17 08/19/18 History pantoprazole [Protonix] 40 mg PO DAILY #0 12/03/17 08/19/18 History levetiracetam [Keppra] 750 mg PO BID #60 tab 07/05/18 08/19/18 Rx Calcium 500 + D 1 tab PO QPM 08/18/18 08/19/18 History clonazepam 0.25 mg TRANSLINGUAL PRN PRN MDD 2 08/18/18 08/19/18 History hydrocodone-acetaminophen 1 tab PO Q8H PRN 08/18/18 08/19/18 History lorazepam 1 mg PO BID PRN 08/18/18 08/19/18 History ondansetron 8 mg PO Q12H PRN 08/18/18 08/19/18 History ondansetron HCl 4 mg PO BID PRN 08/18/18 08/19/18 History sertraline 100 mg PO DAILY 08/18/18 08/19/18 History trazodone 50 mg PO BEDTIME 08/18/18 08/19/18 History Allergies Allergy/AdvReac Type Severity Reaction Status Date / Time simvastatin [SIMVASTATIN] AdvReac Unknown LEG Verified 08/02/18 15:23 CRAMPING sulfamethoxazole AdvReac Unknown DIARRHEA Verified 08/02/18 15:23 [From BACTRIM] trimethoprim [From BACTRIM] AdvReac Unknown DIARRHEA Verified 08/02/18 15:23 Review of Systems Review of Systems All systems reviewed & are unremarkable except as noted in HPI and below Exam Vital Signs (past 8 hours): - 08/19/18 14:13 Temperature 98.3 F Pulse Rate 105 H Respiratory Rate 16 Blood Pressure 146/84 H Pulse Oximetry 98 Narrative Exam Narrative: HEENT: Normocephalic atraumatic, oropharynx reveals moist mucous membranes, neck is supple, Lungs: Clear to auscultation Cardiac exam: Regular rate and rhythm normal S1 and S2 Abdomen: Emaciated, palpable mid epigastric mass, no hepatosplenomegaly Extremities: No edema Patient is markedly emaciated, she has bitemporal wasting. Neuro exam: Patient is slow to respond but appropriate. Her cranial nerves are intact, her strength is symmetric and equal, reflexes are equal, sensation is grossly intact Assessment & Plan (1) Severe protein-calorie malnutrition (Tran: less than 60% of standard weight): Problem details: Request nutrition consult. Will resume a usual regular diet. Would suggest a supplements with her diet. Current visit: Yes Status: Acute (2) Gastroenteritis: Problem details: Suspect this is related to anxiety. Will check C diff given recent antibiotics in use of PPI Current visit: No Status: Acute (3) Anxiety and depression: Problem details: Will continue her usual regimen of trazodone Zoloft and Ativan Current visit: No Status: Acute (4) Seizure: Problem details: Will continue her Keppra Current visit: No Status: Acute (5) Hypokalemia: Problem details: Will replace Current visit: Yes Status: Acute Plan: Assessment/Plan Narrative: Will consult Dr. Bermudez upon return. Agree that the patient would benefit from inpatient psychiatric treatment. We discussed the option of a feeding tube with her. The patient refuses feeding tube at this time. Quality VTE Deep Vein Thrombosis/Pulmonary Embolism Present on Admission: No
--- NOTE | 2018-08-19 15:30 | PT.IIE ---
Current Diagnoses Unspecified severe protein-calorie malnutrition (08/19/18) Hypokalemia (08/19/18) Major depressive disorder, single episode, unspecified (08/19/18) Anxiety disorder, unspecified (08/19/18) Noninfective gastroenteritis and colitis, unspecified (08/19/18) Unspecified convulsions (08/19/18) Surgical History (Last Reviewed 08/19/18 @ 15:14 by Anneliese Crow MD) History of esophageal surgery (Acute) History of kyphoplasty (Acute) No pertinent past surgical history (Acute) Medical History (Last Reviewed 08/19/18 @ 15:14 by Anneliese Crow MD) Upper GI bleed (Acute) Post surgical complication (Acute) Esophageal cancer (Acute) Acute anxiety (Inactive) Physical Therapy Inpatient Evaluation/Re-Eval M1 PT/OT-IP Prior Functional Status Start: 08/19/18 16:08 Freq: NEEDED Status: Active Protocol: Document 08/19/18 15:30 AB (Rec: 08/19/18 16:19 AB [id number]) Medical Review Prior Functional Status Medical History Reviewed Yes Communication able to make needs known Mobility and Gait spouse stated that pt is modified independent with mobility; ambulates without AD indoors but requires LINING PARTS SEWER for outdoor ambulation as pt does not want to use a FWW; spouse also stated that pt has a back support but does not want to use it Prior Functional Level (Other details) per chart: pt with nausea/ vomiting and admitted for hypokalemia Social History Household Members spouse Living Arrangements House Number of Floors (Floors) Two Floors Number of Stairs To Enter/Railing? pt stays on main level; has a sunken living room with 1/2 step down has 2 steps to enter withour rails Home Environment Standard Height Toilet Tub/Shower Home Equipment Front Wheel Walker Grab Bars Near Toilet M2 PT-IP Current Condition Start: 08/19/18 16:08 Freq: NEEDED Status: Active Protocol: Document 08/19/18 15:30 AB (Rec: 08/19/18 16:19 AB [id number]) Physical Therapy Current Condition Current Condition Evaluation Date 08/19/18 Treatment Diagnosis hypokalemia; difficulty in walking Onset Date 08/19/18 Precautions Lumbar Precautions Log Roll No Twisting Limit Bending Lifting Restriction of 10 lbs Gait Belt above Incisional Area Other Precautions pt has h/o compression fracture s/p fall per spouse last march PT-IP Subjective Start: 08/19/18 16:08 Freq: NEEDED Status: Active Protocol: Document 08/19/18 15:30 AB (Rec: 08/19/18 16:19 AB [id number]) Subjective Physical Therapy Visit Type Type Initial Evaluation Visit Start Time 15:30 Visit Stop Time 14:05 Total Visit Minutes 35 Number of PRODUCT DEVELOPMENT DIRECTOR Visits 0 Physical Therapy Visit Comments Patient Comments pt agreeable to get up Therapy Pain Assessment Pain When Pain Assessed At Rest Pain Present Pain Present Pain Reported Location Back Intensity 8 Scale Used Numeric (1 - 10) Abdomen Intensity 6 Scale Used Numeric (1 - 10) M4 PT-IP Mobility and Gait Start: 08/19/18 16:08 Freq: NEEDED Status: Active Protocol: Document 08/19/18 15:30 AB (Rec: 08/19/18 16:19 AB [id number]) PT-Bed Mobility Assessment Rolling Level of Assist Maximal Assistance 1 Person Assistance Supine to Sit Supine to Sit Maximum Assistance 1 Person Assistance PT-Transfer Assessment Sit to and From Stand Sit to and from Stand Moderate Assistance Equipment Transfer Assistive Device Gait Belt Front Wheeled Walker Orthotic/Prosthetic Devices or Brace: No Gait Assessment Gait Gait Assistance Required: Minimum Assistance Distance (Feet) 15 Able to Maintain Weight Bearing Status Yes During Gait Assistive Devices Assistive Device Gait Belt Front Wheeled Walker Gait Deviations General Gait Pattern Decreased Stride Length Decreased Feet Clearance Flexed Trunk Factors Limiting Gait Function Factors Limiting Gait Function Decreased Activity Tolerance Decreased Strength Pain Poor Balance Poor Safety Awareness PT-Balance Assessment Sitting Balance and Reactions Static Sitting Balance Ability Fair Dynamic Sitting Balance Ability Fair Standing Balance and Reactions Static Standing Balance Ability Fair Dynamic Standing Balance Ability Poor Device Used FWW M5 PT-IP Objective Assessments Start: 08/19/18 16:08 Freq: NEEDED Status: Active Protocol: Document 08/19/18 15:30 AB (Rec: 08/19/18 16:19 AB [id number]) Orientation Orientation/Cognition Level of Alertness Alert Orientation Name Age Place Situation Language Function Ability Hard of Hearing Safety Awareness Decreased Safety Awareness Memory Description Short Term Impaired Loop Tender Impaired Gross Range of Motion Lower Extremity ROM Assessment Within Functional Limits Strength Lower Extremity Strength Assessment Bilaterally Impaired Comments Strength Comments RLE 3+/5 LLE: 4-/5 M6 PT-IP Treatment Start: 08/19/18 16:08 Freq: NEEDED Status: Active Protocol: Document 08/19/18 15:30 AB (Rec: 08/19/18 16:19 AB [email or web address]) Physical Therapy Treatment Education Education Provided Precautions Safety Other Treatments Other Treatment Performed educated on back precautions and log roll bed mobility M7 PT-IP Assessment and Plan Start: 08/19/18 16:08 Freq: NEEDED Status: Active Protocol: Document 08/19/18 15:30 AB (Rec: 08/19/18 16:19 AB [id number]) PT Summary Assessment and Plan Potential Rehabilitation Potential Fair Status of Condition at Evaluation Evolving Summary Impairments Pain ROM Strength Balance Coordination Sensation Tone Cognition Bed Mobility Transfers Gait Activity Tolerance Assessment Summary pt requiring max A for bed mobility and mod A for transfers using FWW. pt's d/c plan depending on progress and if spouse will be able to assist her at home. will also need homehealth PT when going home. will conduct caregiver training when appropriate as well as stair climbing training. at this time, pt may require SNF rehab to improve strength and mobilityl Goals Bed Mobility Goal Standby Assistance Transfer Goal Standby Assistance Front Wheeled Walker Gait Goal Standby Assistance Front Wheel Walker Other Goals 100 Days to Meet Goals 5 Frequency of Treatment Frequency Of Treatment Once a Day Treatment Plan Physical Therapy Treatment Plan Bed Mobility Training Transfer Training Gait Training Therapeutic Exercise Balance Retraining Discharge Planning Hot or Cold Pack Neuromuscular Re-ed Coordination Retraining Manual Therapy Other Recommendations and Next Treatment ambulation Focus Recommendations To Nursing Amount of Assist Needed 1 Person Assist Discharge Recommendations PT Discharge Recommendations Home with 24/7 Assist SNF Rehab Outpatient PT Other Discharge Recommendations SNF vs home with 24/7 assist and homehealth PT
[2018-08-19 15:36] VITALS: BP 122/79; PULSE 102; RESP 17; TEMP 36.6; O2SAT 96
[2018-08-19 15:50] VITALS: O2SAT 95
[2018-08-19] MEDS: DEXTROSE 5%-0.45NS W/KCL 40MEQ 1,000 ML 100 MEQ IV (16:10)
[2018-08-19] MEDS: OXYCODONE IR 5 MG TABLET PO (16:20)
[2018-08-19] MEDS: ACETAMINOPHEN 325 MG TABLET 650 MG PO (16:20)
[2018-08-19 19:00] VITALS: BP 90/67; PULSE 85; RESP 15; TEMP 36.6; O2SAT 97
[2018-08-19] MEDS: levETIRAcetam 250 MG TABLET 750 MG PO (21:51)
[2018-08-19] MEDS: SERTRALINE 50 MG TABLET 100 MG PO (21:51)
[2018-08-20] VITALS (10 sets, daily range): BP systolic 92–119; BP diastolic 59–75; PULSE 69–86; RESP 15–20; TEMP 36.7–36.8; O2SAT 93–99; BMI 15.0
--- NOTE | 2018-08-20 00:39 | PC.NURSE ---
Checked pt. x2 she's sound asleep, will monitor & assess her when she wakes up.
--- NOTE | 2018-08-20 01:56 | PC.NURSE ---
Pt. awake denies any pain & nausea. After assessment & VS was done she settled back to sleep. Will cont. POC & monitor.
[2018-08-20] MEDS: DEXTROSE 5%-0.45NS W/KCL 40MEQ 1,000 ML 100 MEQ IV ×3 (02:02→22:36)
[2018-08-20] MEDS: PANTOPRAZOLE 20 MG TABLET PO (05:56)
[2018-08-20 06:12] LABS: Add Manual Diff / Slide Review NO; Basophils Percent Auto 0.8 % (0-2); Eosinophils Percent Auto 1.2 % (2-4); Hematocrit 32.8 % (36-46); Hemoglobin 11.1 g/dL (12.0-16.0); Lymphocytes Percent Auto 15.1 % (25-40); Mean Corpuscular Hemoglobin 30.6 PG (26-34); Monocytes Percent Auto 16.9 % (3-14); Neutrophils Absolute Auto 3200 /uL (3000-5900); Platelet Count 295 X10^3/uL (150-400); Red Blood Cell Count 3.64 X10^6/uL (4.0-5.2); White Blood Cell Count 4.9 X10^3/uL (4.5-11.0)
--- NOTE | 2018-08-20 06:14 | PC.NURSE ---
Pt. denies nausea, pain& no diarrhea this shift. Calmed & pleasant, slept most of the night. Will cont. POC & monitor.
[2018-08-20 06:15] LABS: Alanine Aminotransferase 21 IU/L (9-52); Albumin 3.4 g/dL (3.5-5.0); Albumin Globulin Ratio 1.3 (1.0-2.8); Alkaline Phosphatase 52 U/L (38-126); Aspartate Aminotransferase 27 IU/L (14-36); Bilirubin Total 0.3 mg/dL (0.2-1.3); Blood Urea Nitrogen 16 mg/dL (7-17); Calcium 7.5 mg/dL (8.4-10.2); Carbon Dioxide 28 mmol/L (22-32); Chloride 104 mmol/L (98-107); Estimated Glomerular Filt Rate > 60.0 mL/min (>60); Globulin 2.7 g/dL (1.7-4.1); Glucose 134 mg/dL (80-110); HEMOLYSIS < 15 (0-50); Potassium 3.4 mmol/L (3.4-5.1); Sodium 139 mmol/L (137-145); Total Protein 6.1 g/dL (6.3-8.2)
--- NOTE | 2018-08-20 08:30 | CM.SWNOTE ---
CLEANING PROFESSIONAL Note 29.18: Received call yesterday afternoon from Superintendent Plant/ Navigator Chey Cabrera; she explained that pt had visited the ER yesterday w/N/V and abd pain. Further review shows CT scan was done and was negative for obstruction, lab studies were unremarkable except for hypokalemia, pt was sent home. Pt and spouse then followed up w/ PCP Dr Lyn and Dr Lyn requested direct admit for medical stabilization and attempt at inpt psychiatric placement, Dr Crow accepted. Chey tells this CLEANING PROFESSIONAL she remains concerned for pt's safety and recommends inpt psychiatric stay. Chey has ample notes on pt's chart documenting pt's struggle w/severe, debilitating and life threatening anxiety and psychosomatic symptoms that include N/V since her diagnosis of esophageal cancer and subsequent surgery. Dr Crow has medically cleared pt this morning and requests this CLEANING PROFESSIONAL secure inpt psych placement. Reviewed all notes, this CLEANING PROFESSIONAL familiar w/pt from admission in June. Pt had some improvement at that time and was DC home w/the intention of outpt f/u w/ psychiatrist Dr Bermudez. Since that time, spouse explains that any day pt needs to leave their home she gets very nervous. She often can not leave the house, and certainly not alone. Her severe anxiety and panic manifest in the physical symptoms of nausea and vomiting, mostly phlegm. She induces vomiting by gagging herself. Pt refuses to eat and has lost approx 30 pounds in the last year. She is 5'3 and 84 pounds now. Pt and spouse agreeable to inpt psychiatric treatment and both are eager to get pt feeling happier and healthier. Pt denies suicidal ideation or intent. Pt meets criteria for grave diasbility d/t the severity and life threatening nature of her anxiety, PTSD and depression. Following closely to secure inpt psychiatric placement, pt is a voluntary candidate. PHU Guillory
[2018-08-20] MEDS: levETIRAcetam 250 MG TABLET 750 MG PO ×2 (09:48→20:06)
[2018-08-20] MEDS: ENOXAPARIN 30 MG/0.3 ML SYRINGE SUBCUT (09:49)
[2018-08-20] MEDS: DICYCLOMINE 10 MG CAPSULE PO (09:49)
--- NOTE | 2018-08-20 10:33 | PT.IPTN ---
Current Diagnoses Unspecified severe protein-calorie malnutrition (08/19/18) Hypokalemia (08/19/18) Major depressive disorder, single episode, unspecified (08/19/18) Anxiety disorder, unspecified (08/19/18) Noninfective gastroenteritis and colitis, unspecified (08/19/18) Unspecified convulsions (08/19/18) Physical Therapy Treatment Note M2 PT-IP Current Condition Start: 08/19/18 16:08 Freq: NEEDED Status: Active Protocol: Document 08/19/18 15:30 AB (Rec: 08/19/18 16:19 AB [id number]) Physical Therapy Current Condition Current Condition Evaluation Date 08/19/18 Treatment Diagnosis hypokalemia; difficulty in walking Onset Date 08/19/18 Precautions Lumbar Precautions Log Roll No Twisting Limit Bending Lifting Restriction of 10 lbs Gait Belt above Incisional Area Other Precautions pt has h/o compression fracture s/p fall per spouse last march PT-IP Subjective Start: 08/19/18 16:08 Freq: NEEDED Status: Active Protocol: Document 08/20/18 10:33 AB (Rec: 08/20/18 11:06 AB [email or web address]) Subjective Physical Therapy Visit Type Type Treatment Note Visit Start Time 10:33 Visit Stop Time 10:43 Total Visit Minutes 10 Number of NEUROLOGY PROFESSOR Visits 0 Physical Therapy Visit Comments Patient Comments pt c/o increase back pain but agreed to do ambulation Therapy Pain Assessment Pain When Pain Assessed At Rest Pain Present Pain Present Pain Reported Location Back Intensity 7 Scale Used Numeric (1 - 10) Pain Management Techniques Re-positioning M4 PT-IP Mobility and Gait Start: 08/19/18 16:08 Freq: NEEDED Status: Active Protocol: Document 08/20/18 10:33 AB (Rec: 08/20/18 11:06 AB [email or web address]) PT-Bed Mobility Assessment Supine to Sit Supine to Sit Minimal Assistance 1 Person Assistance Sit to Supine Sit to Supine Minimal Assistance 1 Person Assistance PT-Transfer Assessment Sit to and From Stand Sit to and from Stand Contact Guard Assistance Equipment Transfer Assistive Device Gait Belt Front Wheeled Walker Orthotic/Prosthetic Devices or Brace: No Gait Assessment Gait Gait Assistance Required: Contact Guard Assist Distance (Feet) 40 Able to Maintain Weight Bearing Status Yes During Gait Assistive Devices Assistive Device Gait Belt Front Wheeled Walker Orthotic/Prosthetic Devices or Brace: No Gait Deviations General Gait Pattern Antalgic Decreased Stride Length Decreased Feet Clearance Factors Limiting Gait Function Factors Limiting Gait Function Decreased Activity Tolerance Decreased Strength Limited Range of Motion Pain Poor Balance Poor Safety Awareness M5 PT-IP Objective Assessments Start: 08/19/18 16:08 Freq: NEEDED Status: Active Protocol: Document 08/19/18 15:30 AB (Rec: 08/19/18 16:19 AB [email or web address]) Orientation Orientation/Cognition Level of Alertness Alert Orientation Name Age Place Situation Language Function Ability Hard of Hearing Safety Awareness Decreased Safety Awareness Memory Description Short Term Impaired Sewer Inspector Impaired Gross Range of Motion Lower Extremity ROM Assessment Within Functional Limits Strength Lower Extremity Strength Assessment Bilaterally Impaired Comments Strength Comments RLE 3+/5 LLE: 4-/5 M6 PT-IP Treatment Start: 08/19/18 16:08 Freq: NEEDED Status: Active Protocol: Document 08/20/18 10:33 AB (Rec: 08/20/18 11:06 AB [email or web address]) Physical Therapy Treatment Education Education Provided Precautions Safety M7 PT-IP Assessment and Plan Start: 08/19/18 16:08 Freq: NEEDED Status: Active Protocol: Document 08/20/18 10:33 AB (Rec: 08/20/18 11:06 AB [email or web address]) PT Summary Assessment and Plan Potential Rehabilitation Potential Fair Summary Impairments Pain ROM Strength Balance Cognition Bed Mobility Transfers Gait Activity Tolerance Assessment Summary pt continues to require 1 person assist with mobility and has decrease activity tolerance with c/o increase back pain. Pt will require SNF rehab to imprve strength and mobility. Goals Bed Mobility Goal Standby Assistance Transfer Goal Standby Assistance Front Wheeled Walker Gait Goal Standby Assistance Front Wheel Walker Gait Distance 100 Days to Meet Goals 5 Frequency of Treatment Frequency Of Treatment Once a Day Treatment Plan Physical Therapy Treatment Plan Bed Mobility Training Transfer Training Gait Training Therapeutic Exercise Balance Retraining Discharge Planning Hot or Cold Pack Neuromuscular Re-ed Coordination Retraining Manual Therapy Other Recommendations and Next Treatment ambulation Focus Recommendations To Nursing Amount of Assist Needed 1 Person Assist Discharge Recommendations PT Discharge Recommendations SNF Rehab
[2018-08-20] MEDS: HYDROMORPHONE 1 MG INJ 0.5 MG IV ×2 (10:46→19:12)
--- NOTE | 2018-08-20 13:50 | PM.PN.1 ---
Subjective Date Patient Seen: 08/20/18 Interval history: Patient reports continued mid epigastric pain she states the pain developed a few days ago. She describes it as cramping. She has had some nausea. No further diarrhea. She was able to eat her breakfast. Discussed long-term plan with the patient and her . We are attempting to find inpatient psychiatric facility once the patient is medically stable. Given her crampy abdominal pain will start her on Bentyl for irritable bowel syndrome. Exam Vital Signs (past 8 hours): - 08/20/18 08:35 Temperature 98.3 F Pulse Rate 82 Respiratory Rate 17 Blood Pressure 101/63 Pulse Oximetry 97 Oxygen Delivery Method Room Air Narrative Exam Narrative: Ill-appearing cachectic female lying in bed Lungs: Clear to auscultation Cardiac exam: Regular rate and rhythm normal S1 and S2 Abdomen: Scaphoid, tender in the subxiphoid area. No palpable masses. Extremities no edema Objective Labs Result Diagrams: 08/20/18 05:51 08/20/18 05:51 Labs: Laboratory Results - last 24 hr 08/20/18 08/20/18 05:51 05:51 WBC 4.9 RBC 3.64 L Hgb 11.1 L Hct 32.8 L MCV 90.0 MCH 30.6 MCHC 34.0 RDW 14.0 Plt Count 295 Neut % (Auto) 66.0 D Lymph % (Auto) 15.1 L Snyder % (Auto) 16.9 H Eos % (Auto) 1.2 L Baso % (Auto) 0.8 Neut # (Auto) 3200 Sodium 139 Potassium 3.4 Chloride 104 Carbon Dioxide 28 BUN 16 Creatinine 0.50 L Estimated GFR > 60.0 BUN/Creatinine Ratio 32.0 H Glucose 134 H Calcium 7.5 L Total Bilirubin 0.3 AST 27 ALT 21 Alkaline Phosphatase 52 Total Protein 6.1 L Albumin 3.4 L Globulin 2.7 Albumin/Globulin Ratio 1.3 Assessment & Plan (1) Hypokalemia: Problem details: Will replace. Improved Current visit: Yes Status: Acute (2) Severe protein-calorie malnutrition (Tran: less than 60% of standard weight): Problem details: Request nutrition consult. Will resume a usual regular diet. Would suggest a supplements with her diet. Current visit: Yes Status: Acute (3) Anxiety and depression: Problem details: Will continue her usual regimen of trazodone Zoloft and Ativan Current visit: No Status: Acute (4) Esophageal cancer: Problem details: Will defer further workup. Patient is scheduled to have a EGD with Светлана stoddard next month. Current visit: Yes Status: Acute (5) Abdominal pain: Problem details: Will try Bentyl. We will re-evaluate Current visit: No Status: Acute Plan: Assessment/Plan Narrative: Given her history of diarrhea and recent antibiotics will obtain a C difficile study Quality VTE Deep Vein Thrombosis/Pulmonary Embolism Present on Admission: No
[2018-08-20] MEDS: OXYCODONE IR 5 MG TABLET PO (14:21)
--- NOTE | 2018-08-20 14:25 | OT.IP.EVAL ---
Current Diagnoses Malignant neoplasm of esophagus, unspecified (08/19/18) Unspecified severe protein-calorie malnutrition (08/19/18) Hypokalemia (08/19/18) Major depressive disorder, single episode, unspecified (08/19/18) Anxiety disorder, unspecified (08/19/18) Noninfective gastroenteritis and colitis, unspecified (08/19/18) Unspecified abdominal pain (08/19/18) Unspecified convulsions (08/19/18) Past Medical History (Last Reviewed 08/19/18 @ 15:14 by Anneliese Crow MD) Upper GI bleed (Acute) Post surgical complication (Acute) Esophageal cancer (Acute) Acute anxiety (Inactive) Surgical History (Last Reviewed 08/19/18 @ 15:14 by Anneliese Crow MD) History of esophageal surgery (Acute) History of kyphoplasty (Acute) No pertinent past surgical history (Acute) Occupational Therapy Inpatient Evaluation/Re-Eval M1 PT/OT-IP Prior Functional Status Start: 08/19/18 16:08 Freq: NEEDED Status: Active Protocol: Document 08/19/18 15:30 AB (Rec: 08/19/18 16:19 AB [id number]) Medical Review Prior Functional Status Medical History Reviewed Yes Communication able to make needs known Mobility and Gait spouse stated that pt is modified independent with mobility; ambulates without AD indoors but requires BOOTH OPERATOR for outdoor ambulation as pt does not want to use a FWW; spouse also stated that pt has a back support but does not want to use it Prior Functional Level (Other details) per chart: pt with nausea/ vomiting and admitted for hypokalemia Social History Household Members spouse Living Arrangements House Number of Floors (Floors) Two Floors Number of Stairs To Enter/Railing? pt stays on main level; has a sunken living room with 1/2 step down has 2 steps to enter without rails Home Environment Standard Height Toilet Tub/Shower Home Equipment Front Wheel Walker Grab Bars Near Toilet M1 PT/OT-IP Prior Functional Status Start: 08/20/18 13:59 Freq: NEEDED Status: Active Protocol: Document 08/20/18 13:59 CCC (Rec: 08/20/18 14:25 [facility] [id number]) Medical Review Prior Functional Status Medical History Reviewed Yes Communication able to make needs known Mobility and Gait spouse stated that pt is modified independent with mobility; ambulates without AD indoors but requires BOOTH OPERATOR for outdoor ambulation as pt does not want to use a FWW; spouse also stated that pt has a back support but does not want to use it Activities of Daily Living and IADL's Pt states able to do most on her own, but occasional assist for bra and showering from her . Prior Functional Level (Other details) per chart: pt with nausea/ vomiting and admitted for hypokalemia Social History Household Members spouse Living Arrangements House Number of Floors (Floors) Two Floors Number of Stairs To Enter/Railing? pt stays on main level; has a sunken living room with 1/2 step down has 2 steps to enter without rails Home Environment Standard Height Toilet Tub/Shower Home Equipment Front Wheel Walker Grab Bars Near Toilet M2 OT-IP Current Condition Start: 08/20/18 13:59 Freq: Status: Active Protocol: Document 08/20/18 13:59 [facility] (Rec: 08/20/18 14:25 [facility] [id number]) Occupational Therapy Current Condition Current Condition Evaluation Date 08/20/18 Treatment Diagnosis Hypokalemia Diagnosis Onset Date 08/19/18 Post Operative Precautions Lumbar Precautions Log Roll No Twisting Limit Bending Lifting Restriction of 10 lbs Gait Belt above Incisional Area Other Precautions pt has h/o compression fracture s/p fall per spouse last march OT- IP Subjective and Pain Start: 08/20/18 13:59 Freq: Status: Active Protocol: Document 08/20/18 13:59 [facility] (Rec: 08/20/18 14:25 [facility] [id number]) OT- Subjective Occupational Therapy Visit Type Type Initial Evaluation Visit Start Time 13:30 Visit Stop Time 13:45 Total Visit Minutes 15 Occupational Therapy Visit Comments Patient Comments Pt cooperative and pleasant and willing to get up to wash up and use the bathroom. OT Pain Assessment Pain When Pain Assessed At Rest Pain Present Pain Present Pain Reported Location Back Intensity 5 Scale Used Numeric (1 - 10) M4 OT- IP ADL's Start: 08/20/18 13:59 Freq: Status: Active Protocol: Document 08/20/18 13:59 [facility] (Rec: 08/20/18 14:25 [facility] [id number]) OT ADL-Grooming General Evaluation Grooming Ability Standby Assistance Areas Needing Assistance Retrieving/Set-up of Grooming Items Comments OT Grooming Comments Pt needing assist for set-up of items for grooming. OT ADL-Oral Care General Eval Oral Care Ability Standby Assistance Comments Oral Care Comments Pt able to brush her teeth, however not able to completely rinse out her brush afterwards. OT ADL-Dressing General Eval Lower Body Dressing Ability Standby Assistance Comments OT Dressing Comments SBA to mayra/doff underwear over her hips. OT ADL-Toileting General Evaluation Toileting Ability Independent Comments OT Toileting Comments Pt has raised handles on both sides of the toilet. OT ADL-Bathing Comments OT Bathing Comments Pt living at temporary home and would benefit from tub bench for tub/shower. M6 OT- IP Functional Cognition Start: 08/20/18 13:59 Freq: Status: Active Protocol: Document 08/20/18 13:59 [facility] (Rec: 08/20/18 14:25 [facility] [id number]) Cognitive Factors Limiting Selfcare Function Cognitive Ability Level of Alertness Alert Patient Orientation Name Place Situation Attention Span Ability Capable of Focused Attention Capable of Sustained Attention Ability to Follow Commands Able to Follow One Step Commands Cognitive Comments Cognitive Assessment Comments Pt very CROW and able to follow 1-2 step commands. Pt tends to more quickly and vc to slow down. M7 OT- IP Mobility and Balance Start: 08/20/18 13:59 Freq: Status: Active Protocol: Document 08/20/18 13:59 [facility] (Rec: 08/20/18 14:25 [facility] [id number]) OT- Bed Mobility Assessment Rolling Type of Rolling Roll to Left Level of Assistance Standby Assistance Bedrails Supine to Sit Supine to Sit Assist Standby Assistance Sit to Supine Sit to Supine Assist Standby Assistance OT-Transfer Assessment Sit to and From Stand Sit to and from Stand Standby Assistance Transfers Transfer Ability Standby Assistance Contact Guard Assistance Technique Transfer Destination Bed Toilet Transfer Technique Stand Step Pivot Devices Transfer Assistive Devices Front Wheeled Walker Comments Mobility Comments Pt refuses to use gait belt, SBA with FWW. Pt needing occasional CGA as moving very fast and cues to keep FWW in front of her. OT- Balance Assessment Sitting Balance and Reactions Static Sitting Balance Ability Normal Dynamic Sitting Balance Ability Normal Standing Balance and Reactions Static Standing Balance Ability Good Dynamic Standing Balance Ability Fair M8 OT- IP Objective Assessments Start: 08/20/18 13:59 Freq: Status: Active Protocol: Document 08/20/18 13:59 [facility] (Rec: 08/20/18 14:25 [facility] [id number]) OT Gross Range of Motion Upper Extremity Range of Motion ROM Impairments WFL for ADl needs. OT Strength Upper Extremity Strength Assessment Bilaterally Impaired Comments Strength Comments Decreased strength to open squeeze toothpaste out and unable to get toothbrush out of the packaging. M9 OT- IP Assessment and Plan Start: 08/20/18 13:59 Freq: Status: Active Protocol: Document 08/20/18 13:59 [facility] (Rec: 08/20/18 14:25 [facility] [id number]) OT Summary Assessment and Plan Potential Rehabilitation Potential Good Analytic Complexity at Evaluation Low Summary OT Impairments Pain Functional Cognition Functional Mobility Bathing Shower Transfers Progress Towards Goals Progressing Toward Goals Slow Progress due to Medical Issues Assessment Summary Pt low complexity and main barrier are medical, decreased strength, endurance, and activity tolerance. Goals Grooming Goal Independent Dressing Goal Standby Assistance Toileting Goal Independent Bathing Goal Standby Assistance Toilet Transfer Goal Independent Shower Transfer Goal Standby Assistance Patient/Caregiver Education Goal Demonstrate Energy Conservation and Pacing Caregiver Independent Assisting Patient Days to Meet Goals 5 Frequency of Treatment Frequency Of Treatment Once a Day Treatment Plan OT Treatment Plan ADL Training Functional Cognition Training Patient/Family Education Discharge Planning Other Treatment Recommendations and Next Shower, BUE exercises Treatment Focus Discharge Recommendations Other Discharge Recommendations Doctor currently suggesting inpatient psyche placement. Home Equipment Needs Tub bench, HHSP
--- NOTE | 2018-08-20 16:22 | CM.DPC ---
DCP Cont/ MH Placement: Efforts today included [facility]- too medically complicated [facility] in [place]- not accepting referrals from out of county [facility]- Had to LM, could not get their fax number, listed one is incorrect [facility]- Reviewing. Updated pt, spouse Adilson, and Chey Chaney-Laws w/ pt's permission. All remain optimistic that a psychiatric placement will be secured. VM from [facility] at approx 1630: Pt is likely a good candidate for their unit, although too late in the day to facilitate transfer. This PURCHASING INTERN returned call and LM alerting them to the PURCHASING INTERN office hours. PURCHASING INTERN scheduled Friday can continue contact, [facility] P# [phone]. Following closely. PHU Guillory
[2018-08-20] MEDS: ONDANSETRON 4 MG/2 ML INJ IV (19:05)
[2018-08-20] MEDS: TRAZODONE 50 MG TABLET PO (20:06)
[2018-08-20] MEDS: DOCUSATE 100 MG CAPSULE PO (20:06)
[2018-08-20] MEDS: SERTRALINE 50 MG TABLET 100 MG PO (20:06)
[2018-08-21] VITALS (9 sets, daily range): BP systolic 115–192; BP diastolic 76–99; PULSE 73–87; RESP 14–18; TEMP 36.4–37.3; O2SAT 94–99
[2018-08-21] MEDS: PANTOPRAZOLE 20 MG TABLET PO (05:34)
--- NOTE | 2018-08-21 06:01 | PC.NURSE ---
08/21 0601, Pt alert and oriented, VSS on RA, denied pain this shift with no PRNs requested and administered. Up to bathroom with standby assistance, IVF maintained. at bedside throughout the night. No changes this shift.
[2018-08-21] MEDS: ONDANSETRON 4 MG/2 ML INJ IV (06:56)
[2018-08-21] MEDS: LORazepam 2 MG/ML SYRINGE 0.5 MG IV ×2 (07:03→14:38)
[2018-08-21] MEDS: DEXTROSE 5%-0.45NS W/KCL 40MEQ 1,000 ML 100 MEQ IV ×2 (07:05→19:06)
[2018-08-21] MEDS: HYDROMORPHONE 1 MG INJ 0.5 MG IV ×2 (08:28→13:26)
[2018-08-21] MEDS: ENOXAPARIN 30 MG/0.3 ML SYRINGE SUBCUT (08:38)
--- NOTE | 2018-08-21 08:44 | OT.IP.TRT ---
Current Diagnoses Malignant neoplasm of esophagus, unspecified (08/19/18) Unspecified severe protein-calorie malnutrition (08/19/18) Hypokalemia (08/19/18) Major depressive disorder, single episode, unspecified (08/19/18) Anxiety disorder, unspecified (08/19/18) Noninfective gastroenteritis and colitis, unspecified (08/19/18) Unspecified abdominal pain (08/19/18) Unspecified convulsions (08/19/18) Occupational Therapy Treatment Note M2 OT-IP Current Condition Start: 08/20/18 13:59 Freq: Status: Active Protocol: Document 08/20/18 13:59 [facility] (Rec: 08/20/18 14:25 [facility] [id number]) Occupational Therapy Current Condition Current Condition Evaluation Date 08/20/18 Treatment Diagnosis Hypokalemia Diagnosis Onset Date 08/19/18 Post Operative Precautions Lumbar Precautions Log Roll No Twisting Limit Bending Lifting Restriction of 10 lbs Gait Belt above Incisional Area Other Precautions pt has h/o compression fracture s/p fall per spouse last march OT- IP Subjective and Pain Start: 08/20/18 13:59 Freq: Status: Active Protocol: Document 08/21/18 08:30 [facility] (Rec: 08/21/18 08:43 [facility] [id number]) OT- Subjective Occupational Therapy Visit Type Type Patient Refusal Notes Pt feeling nauseous, in pain, and coughing clear emesis and not wanting to be seen for therapy at this time. Nursing in with the pt.
--- NOTE | 2018-08-21 11:56 | PT.IPTN ---
Current Diagnoses Malignant neoplasm of esophagus, unspecified (08/19/18) Unspecified severe protein-calorie malnutrition (08/19/18) Hypokalemia (08/19/18) Major depressive disorder, single episode, unspecified (08/19/18) Anxiety disorder, unspecified (08/19/18) Noninfective gastroenteritis and colitis, unspecified (08/19/18) Unspecified abdominal pain (08/19/18) Unspecified convulsions (08/19/18) Physical Therapy Treatment Note M2 PT-IP Current Condition Start: 08/19/18 16:08 Freq: NEEDED Status: Active Protocol: Document 08/21/18 11:45 NFW (Rec: 08/21/18 11:56 NFW [id number]) Physical Therapy Current Condition Current Condition Evaluation Date 08/21/18 Treatment Diagnosis hypokalemia; difficulty in walking Onset Date 08/19/18 Precautions Lumbar Precautions Log Roll No Twisting Limit Bending Lifting Restriction of 10 lbs Gait Belt above Incisional Area Other Precautions pt has h/o compression fracture s/p fall per spouse last march M3 PT-IP Subjective Start: 08/19/18 16:08 Freq: NEEDED Status: Active Protocol: Document 08/21/18 11:45 NFW (Rec: 08/21/18 11:56 NFW [id number]) Subjective Physical Therapy Visit Type Type Treatment Note Visit Start Time 11:15 Visit Stop Time 11:43 Total Visit Minutes 28 Number of FAMILY MEDICINE CHAIR Visits 0 Physical Therapy Visit Comments Patient Comments Problems with nausea earlier today but now agreeable to get up. M4 PT-IP Mobility and Gait Start: 08/19/18 16:08 Freq: NEEDED Status: Active Protocol: Document 08/21/18 11:45 NFW (Rec: 08/21/18 11:56 NFW [id number]) PT-Bed Mobility Assessment Rolling Type of Rolling Roll to Left Level of Assist Standby Assistance 1 Person Assistance Supine to Sit Supine to Sit Standby Assistance 1 Person Assistance Scooting Scooting to Edge of Bed Standby Assistance PT-Transfer Assessment Sit to and From Stand Sit to and from Stand Contact Guard Assistance 1 Person Assistance Equipment Transfer Assistive Device Gait Belt Front Wheeled Walker Orthotic/Prosthetic Devices or Brace: No Transfers Transfer Destination Chair Transfer Ability Level of Assist Contact Guard Assistance Comments Mobility Comments Cuing for proper technique to protect lumbar spine. Gait Assessment Gait Gait Assistance Required: Contact Guard Assist Distance (Feet) 200 Able to Maintain Weight Bearing Status Yes During Gait Assistive Devices Assistive Device Gait Belt Front Wheeled Walker Orthotic/Prosthetic Devices or Brace: No Gait Deviations General Gait Pattern Decreased Stride Length Decreased Feet Clearance Flexed Trunk Narrow Based Gait Factors Limiting Gait Function Factors Limiting Gait Function Decreased Activity Tolerance Decreased Strength Limited Range of Motion Pain Poor Balance Poor Safety Awareness Comments Gait Comments Narrow base, toed in gait pattern. Encouraged use of FWW at home vs use of cane. Stair Climbing Assessment Evaluation Level of Assist On Stairs Contact Guard Assistance Devices Stair Climbing Assistive Devices Left Railing Right Railing Technique/Endurance Stair Climbing Direction Ascend and Descend Stair Climbing Technique Step to Step Number of Steps Climbed 3 Query Text: Stair Climbing Set # Repetitions (reps) 1 Comments Stair Climbing Comments Leads with right with ascension, left with descension. Depends on handrails for balance/security . PT-Balance Assessment Sitting Balance and Reactions Static Sitting Balance Ability Good Dynamic Sitting Balance Ability Fair Standing Balance and Reactions Static Standing Balance Ability Fair Dynamic Standing Balance Ability Fair Device Used FWW M5 PT-IP Objective Assessments Start: 08/19/18 16:08 Freq: NEEDED Status: Active Protocol: Document 08/19/18 15:30 AB (Rec: 08/19/18 16:19 AB [id number]) Orientation Orientation/Cognition Level of Alertness Alert Orientation Name Age Place Situation Language Function Ability Hard of Hearing Safety Awareness Decreased Safety Awareness Memory Description Short Term Impaired Residential Impaired Gross Range of Motion Lower Extremity ROM Assessment Within Functional Limits Strength Lower Extremity Strength Assessment Bilaterally Impaired Comments Strength Comments RLE 3+/5 LLE: 4-/5 M6 PT-IP Treatment Start: 08/19/18 16:08 Freq: NEEDED Status: Active Protocol: Document 08/21/18 11:45 NFW (Rec: 08/21/18 11:56 NFW [id number]) Physical Therapy Treatment Education Education Provided Precautions Safety Other Treatments Other Treatment Performed Review of back precautions with bed mobilities. M7 PT-IP Assessment and Plan Start: 08/19/18 16:08 Freq: NEEDED Status: Active Protocol: Document 08/21/18 11:45 NFW (Rec: 08/21/18 11:56 NFW [id number]) PT Summary Assessment and Plan Potential Rehabilitation Potential Fair Summary Impairments Pain ROM Strength Balance Cognition Bed Mobility Transfers Gait Activity Tolerance Assessment Summary 1 person assist recommended for safety and encouragement. Improvement with endurance and requires cuing for safety issues with lumbar spine. Frequency of Treatment Frequency Of Treatment Once a Day Treatment Plan Physical Therapy Treatment Plan Bed Mobility Training Transfer Training Gait Training Therapeutic Exercise Balance Retraining Discharge Planning Hot or Cold Pack Neuromuscular Re-ed Coordination Retraining Manual Therapy Other Recommendations and Next Treatment ambulation Focus stairs Recommendations To Nursing Amount of Assist Needed 1 Person Assist Discharge Recommendations PT Discharge Recommendations SNF Rehab Other Discharge Recommendations SNF vs home with 14/04 assist and homehealth PT
--- NOTE | 2018-08-21 13:10 | P.PN_ITS ---
Subjective Date Patient Seen: 08/21/18 Interval history: She remains very nervous this morning, despite having just received Ativan IV. She is also very hard of hearing. She complains of nausea. There are no new labs today. The potassium was 3.4 yesterday. There are no results from the C diff order. I was informed that she had been accepted to an inpatient psychiatric care bed at [facility] but that was later reversed. Exam Vital Signs (past 8 hours): - 08/21/18 05:30 08/21/18 07:40 08/21/18 08:35 Temperature 97.6 F 97.6 F Pulse Rate 73 87 Respiratory Rate 18 18 Blood Pressure 146/88 H 192/99 H Pulse Oximetry 96 99 96 Oxygen Delivery Method Room Air Oxygen Flow Rate 0 Narrative Exam Narrative: She is alert and oriented to her own name. It is difficult to see behind the anxiety component to understand her current mentation/ orientation. The recent sedatives also confuse that as does the hearing loss. Her heart is regular rate and rhythm without murmur. Her abdomen is soft, nontender, no organomegaly. Lungs are clear to auscultation bilaterally. Extremities have no ankle edema. Objective Labs Result Diagrams: 08/20/18 05:51 08/20/18 05:51 Assessment & Plan Plan: Assessment/Plan Narrative: (1) Hypokalemia: Problem details: Stable at 3.4 Current visit: Yes Status: Acute (2) Severe protein-calorie malnutrition (Tran: less than 60% of standard weight ): Problem details: Request nutrition consult. Will continue the regular diet. Would suggest a supplement with her diet. Current visit: Yes Status: Acute (3) Anxiety and depression: Problem details: Will continue her usual regimen of trazodone, Zoloft and Ativan. The hoped for psychiatric transfer did not come through today. Instead an arrangement for CPIT-crisis prevention interventional team at home has been initiated for tomorrow and she'll be going home in the morning. Current visit: No Status: Acute (4) Esophageal cancer: Problem details: Will continue to defer further workup. Patient is scheduled to have a EGD with Светлана stoddard next month. Current visit: Yes Status: Acute (5) Abdominal pain: Problem details: Bentyl tried without any clear success. We will continue to re-evaluate Current visit: No Status: Acute Plan: Assessment/Plan Narrative: Given her history of diarrhea and recent antibiotics we tried to obtain a C difficile study. No results yet. Quality VTE Deep Vein Thrombosis/Pulmonary Embolism Present on Admission: No
--- NOTE | 2018-08-21 13:30 | CM.DPC ---
Referral faxed to [facility] per Laura
--- NOTE | 2018-08-21 14:35 | OT.IP.TRT ---
Current Diagnoses Malignant neoplasm of esophagus, unspecified (08/19/18) Unspecified severe protein-calorie malnutrition (08/19/18) Hypokalemia (08/19/18) Major depressive disorder, single episode, unspecified (08/19/18) Anxiety disorder, unspecified (08/19/18) Noninfective gastroenteritis and colitis, unspecified (08/19/18) Unspecified abdominal pain (08/19/18) Unspecified convulsions (08/19/18) Occupational Therapy Treatment Note M2 OT-IP Current Condition Start: 08/20/18 13:59 Freq: Status: Active Protocol: Document 08/20/18 13:59 [facility] (Rec: 08/20/18 14:25 [facility] [id number]) Occupational Therapy Current Condition Current Condition Evaluation Date 08/20/18 Treatment Diagnosis Hypokalemia Diagnosis Onset Date 08/19/18 Post Operative Precautions Lumbar Precautions Log Roll No Twisting Limit Bending Lifting Restriction of 10 lbs Gait Belt above Incisional Area Other Precautions pt has h/o compression fracture s/p fall per spouse last march OT- IP Subjective and Pain Start: 08/20/18 13:59 Freq: Status: Active Protocol: Document 08/21/18 14:29 [facility] (Rec: 08/21/18 14:35 [facility] [id number]) OT- Subjective Occupational Therapy Visit Type Type Treatment Note Visit Start Time 14:10 Visit Stop Time 14:25 Total Visit Minutes 15 Occupational Therapy Visit Comments Patient Comments Pt more tearful today but willing to get up and use the bathroom and wash up at the sink. OT Pain Assessment Pain When Pain Assessed At Rest Pain Present Pain Present Denied Pain M4 OT- IP ADL's Start: 08/20/18 13:59 Freq: Status: Active Protocol: Document 08/21/18 14:29 [facility] (Rec: 08/21/18 14:35 [facility] [id number]) OT ADL-Grooming General Evaluation Grooming Ability Standby Assistance Areas Needing Assistance Retrieving/Set-up of Grooming Items Comments OT Grooming Comments Pt able to do all grooming at this time on her own and no cues to initiate. OT ADL-Oral Care General Eval Oral Care Ability Independent OT ADL-Dressing Comments OT Dressing Comments Pt able to independently replace pad in underwear after asking if pt had to change her pad. OT ADL-Toileting General Evaluation Toileting Ability Independent Comments OT Toileting Comments Pt needing tends to grab FWW to stand and needing use of grab bar to help descent to the toilet. M6 OT- IP Functional Cognition Start: 08/20/18 13:59 Freq: Status: Active Protocol: Document 08/21/18 14:29 [facility] (Rec: 08/21/18 14:35 [facility] [id number]) Cognitive Factors Limiting Selfcare Function Cognitive Ability Level of Alertness Alert Patient Orientation Name Place Situation Attention Span Ability Capable of Focused Attention Capable of Sustained Attention Ability to Follow Commands Able to Follow One Step Commands Cognitive Comments Cognitive Assessment Comments Pt tearful today but cooperative. M7 OT- IP Mobility and Balance Start: 08/20/18 13:59 Freq: Status: Active Protocol: Document 08/21/18 14:29 [facility] (Rec: 08/21/18 14:35 [facility] [id number]) OT- Bed Mobility Assessment Rolling Type of Rolling Roll to Left Level of Assistance Minimal Assistance Supine to Sit Supine to Sit Assist Minimal Assistance Sit to Supine Sit to Supine Assist Standby Assistance OT-Transfer Assessment Sit to and From Stand Sit to and from Stand Standby Assistance Transfers Transfer Ability Standby Assistance Contact Guard Assistance Technique Transfer Destination Bed Toilet Transfer Technique Stand Step Pivot Devices Transfer Assistive Devices Front Wheeled Walker Comments Mobility Comments Pt needing more assist to get out of bed today. OT- Balance Assessment Sitting Balance and Reactions Static Sitting Balance Ability Normal Dynamic Sitting Balance Ability Normal Standing Balance and Reactions Static Standing Balance Ability Good Dynamic Standing Balance Ability Fair M8 OT- IP Objective Assessments Start: 08/20/18 13:59 Freq: Status: Active Protocol: Document 08/20/18 13:59 [facility] (Rec: 08/20/18 14:25 [facility] [id number]) OT Gross Range of Motion Upper Extremity Range of Motion ROM Impairments WFL for ADl needs. OT Strength Upper Extremity Strength Assessment Bilaterally Impaired Comments Strength Comments Decreased strength to open squeeze toothpaste out and unable to get toothbrush out of the packaging. M9 OT- IP Assessment and Plan Start: 08/20/18 13:59 Freq: Status: Active Protocol: Document 08/21/18 14:29 [facility] (Rec: 08/21/18 14:35 [facility] [id number]) OT Summary Assessment and Plan Potential Rehabilitation Potential Good Analytic Complexity at Evaluation Low Summary OT Impairments Pain Functional Cognition Functional Mobility Bathing Shower Transfers Progress Towards Goals Progressing Toward Goals Slow Progress due to Medical Issues Assessment Summary Pt low complexity and main barrier are medical, decreased strength, endurance, and activity tolerance. Goals Days to Meet Goals 4 Frequency of Treatment Frequency Of Treatment Once a Day Treatment Plan OT Treatment Plan ADL Training Functional Cognition Training Patient/Family Education Discharge Planning Other Treatment Recommendations and Next Shower, BUE exercises Treatment Focus Discharge Recommendations OT Discharge Recommendations Home with 24/ Assist Other Discharge Recommendations Doctor currently suggesting inpatient psyche placement. Home Equipment Needs Tub bench, HHSP
--- NOTE | 2018-08-21 15:08 | CM.DANOTE ---
Discharge Planning/Care Management DCP/Cont Call from [facility]: patient too medically compromised. CM/Bryan faxed referral to [facility]. Reviewed EMR and met with patient. Spouse concerned that impt psych are looking at patient's past medical history and not the current. Understood spouses frustration. Discussed alternative options besides IMP[facility] pscyh and patient seemed pleased with the idea of [facility] and [facility]. SW called crisis call center/Monica: patient would make an excellent [facility] referral and could even receieve an urgent MH eval on Friday. [facility] would make contact with patient today and follow up on discharge plan and will meet patient at home for full assessment. Spouse and patient both agreeable to this option. Spouse is unable to drive at night so discharge for tomorrow is planned. Spoke with MD who agreed with LRO. Plan: Patient to likely discharge tomorrow with [facility] and [facility] for OP MH needs. [facility] referral completed. CM Discharge Assessment Start: 08/21/18 15:07 Freq: Status: Active Protocol: Document 08/21/18 15:07 (Rec: 08/21/18 15:08 [id number]) Discharge Planning Assessment Assigned Printing Machine Operator [facility] Advance Directives? Yes Advance Directives on File Yes History Provided By Patient Family Member Significant Other Medical Record Prior Living Arrangements House Household Members spouse Type of transporation used prior to Relies on Others admit Independent with ADL's Yes Is patient alert and oriented? Yes Discharge Plan Home Community Services Social Work Transportation Arrangement Spouse to provide. Additional Comment Home with [facility]. Whiteboard Updated in Patient Room with Yes name and ext. # of Printing Machine Operator Review Status In Process Please Provide Date Initial DC 08/21/18 Assessment Was Performed
--- NOTE | 2018-08-21 15:19 | PT.IPTN ---
Current Diagnoses Malignant neoplasm of esophagus, unspecified (08/19/18) Unspecified severe protein-calorie malnutrition (08/19/18) Hypokalemia (08/19/18) Major depressive disorder, single episode, unspecified (08/19/18) Anxiety disorder, unspecified (08/19/18) Noninfective gastroenteritis and colitis, unspecified (08/19/18) Unspecified abdominal pain (08/19/18) Unspecified convulsions (08/19/18) Physical Therapy Treatment Note M2 PT-IP Current Condition Start: 08/19/18 16:08 Freq: NEEDED Status: Active Protocol: Document 08/21/18 15:12 [facility] (Rec: 08/21/18 15:19 [facility] [id number]) Physical Therapy Current Condition Current Condition Evaluation Date 08/21/18 Treatment Diagnosis hypokalemia; difficulty in walking Onset Date 08/19/18 Precautions Lumbar Precautions Log Roll No Twisting Limit Bending Lifting Restriction of 10 lbs Gait Belt above Incisional Area Other Precautions pt has h/o compression fracture s/p fall per spouse last march M3 PT-IP Subjective Start: 08/19/18 16:08 Freq: NEEDED Status: Active Protocol: Document 08/21/18 15:12 [facility] (Rec: 08/21/18 15:19 [facility] [id number]) Subjective Physical Therapy Visit Type Type Treatment Note Visit Start Time 14:56 Visit Stop Time 15:14 Total Visit Minutes 18 Number of ROVING HAND Visits 0 Physical Therapy Visit Comments Patient Comments Pt tired and just received meds to help her sleep. Agreeable for some PT. Therapy Pain Assessment Pain When Pain Assessed At Rest Pain Present Pain Present Pain Reported M4 PT-IP Mobility and Gait Start: 08/19/18 16:08 Freq: NEEDED Status: Active Protocol: Document 08/21/18 15:12 [facility] (Rec: 08/21/18 15:19 [facility] [id number]) PT-Bed Mobility Assessment Rolling Type of Rolling Roll to Left Level of Assist Standby Assistance 1 Person Assistance Supine to Sit Supine to Sit Standby Assistance 1 Person Assistance Sit to Supine Sit to Supine Standby Assistance 1 Person Assistance Scooting Scooting to Edge of Bed Standby Assistance Scooting Up and Down in Bed Standby Assistance PT-Transfer Assessment Sit to and From Stand Sit to and from Stand Contact Guard Assistance 1 Person Assistance Equipment Transfer Assistive Device Gait Belt Front Wheeled Walker Orthotic/Prosthetic Devices or Brace: No Transfers Transfer Destination Bed Transfer Ability Level of Assist Contact Guard Assistance Comments Mobility Comments Review of body mechanics in and out of bed. Gait Assessment Gait Gait Assistance Required: Contact Guard Assist Distance (Feet) 200 Able to Maintain Weight Bearing Status Yes During Gait Assistive Devices Assistive Device Gait Belt Front Wheeled Walker Orthotic/Prosthetic Devices or Brace: No Gait Deviations General Gait Pattern Decreased Stride Length Decreased Feet Clearance Flexed Trunk Narrow Based Gait Factors Limiting Gait Function Factors Limiting Gait Function Decreased Activity Tolerance Decreased Strength Limited Range of Motion Pain Poor Balance Poor Safety Awareness Comments Gait Comments Narrow base, toed in gait pattern. Encouraged use of FWW at home vs use of cane. M5 PT-IP Objective Assessments Start: 08/19/18 16:08 Freq: NEEDED Status: Active Protocol: Document 08/19/18 15:30 [facility] (Rec: 08/19/18 16:19 [facility] [id number]) Orientation Orientation/Cognition Level of Alertness Alert Orientation Name Age Place Situation Language Function Ability Hard of Hearing Safety Awareness Decreased Safety Awareness Memory Description Short Term Impaired Shelter Impaired Gross Range of Motion Lower Extremity ROM Assessment Within Functional Limits Strength Lower Extremity Strength Assessment Bilaterally Impaired Comments Strength Comments RLE 3+/5 LLE: 4-/5 M6 PT-IP Treatment Start: 08/19/18 16:08 Freq: NEEDED Status: Active Protocol: Document 08/21/18 15:12 [facility] (Rec: 08/21/18 15:19 [facility] [id number]) Physical Therapy Treatment Other Treatments Other Treatment Performed Emphasis place on log roll in and out of bed. M7 PT-IP Assessment and Plan Start: 08/19/18 16:08 Freq: NEEDED Status: Active Protocol: Document 08/21/18 15:12 [facility] (Rec: 08/21/18 15:19 [facility] [id number]) PT Summary Assessment and Plan Potential Rehabilitation Potential Fair Summary Impairments Pain ROM Strength Balance Cognition Bed Mobility Transfers Gait Activity Tolerance Assessment Summary 1 person assist recommended for safety and encouragement. Improvement with endurance and requires cuing for safety issues with lumbar spine. Frequency of Treatment Frequency Of Treatment Once a Day Treatment Plan Physical Therapy Treatment Plan Bed Mobility Training Transfer Training Gait Training Therapeutic Exercise Balance Retraining Discharge Planning Hot or Cold Pack Neuromuscular Re-ed Coordination Retraining Manual Therapy Other Recommendations and Next Treatment ambulation Focus stairs Recommendations To Nursing Amount of Assist Needed 1 Person Assist Discharge Recommendations PT Discharge Recommendations SNF Rehab Other Discharge Recommendations SNF vs home with 14/04 assist and homehealth PT
[2018-08-21] MEDS: SERTRALINE 50 MG TABLET 100 MG PO (20:21)
[2018-08-21] MEDS: levETIRAcetam 250 MG TABLET 750 MG PO (20:21)
[2018-08-21] MEDS: DOCUSATE 100 MG CAPSULE PO (20:21)
[2018-08-21] MEDS: OXYCODONE IR 5 MG TABLET PO (20:21)
[2018-08-21] MEDS: TRAZODONE 50 MG TABLET PO (20:21)
[2018-08-22] MEDS: OXYCODONE IR 5 MG TABLET PO ×2 (03:25→09:54)
[2018-08-22 03:45] VITALS: BP 131/94; PULSE 86; RESP 16; TEMP 36.9; O2SAT 96
[2018-08-22] MEDS: DEXTROSE 5%-0.45NS W/KCL 40MEQ 1,000 ML 100 MEQ IV (05:07)
[2018-08-22] MEDS: PANTOPRAZOLE 20 MG TABLET PO (05:07)
[2018-08-22 07:25] VITALS: BP 140/80; PULSE 87; RESP 16; TEMP 37.2; O2SAT 97
[2018-08-22] MEDS: levETIRAcetam 250 MG TABLET 750 MG PO (09:54)
[2018-08-22 09:55] VITALS: O2SAT 95
[2018-08-22] MEDS: LORazepam 2 MG/ML SYRINGE 0.5 MG IV (09:55)
--- NOTE | 2018-08-22 11:19 | P.DS_ITS ---
History of Present Illness Date Patient Seen: 08/22/18 Chief complaint: hypokalemia,nausea,vomiting,diarrhea Narrative: The patient is a 67-year-old female with a history of esophageal cancer who presents with intractable nausea vomiting and diarrhea. Patient was admitted to the hospital in June of this year. She was treated for acute colitis. She was discharged on levofloxacin and Flagyl for her colitis. She discontinued the antibiotics a few days ago. History has been obtained from the patient as well as from her . According to the the patient has a severe anxiety disorder. The anxiety is manifested by nausea and vomiting. She vomits phlegm. She has been unable to eat signet amounts to maintain her weight. She is current kilos. The patient has anxiety which is provoked by leaving the home. She underwent evaluation by Neurology to include an EEG on Friday. She met with the neurologist yesterday. Following her evaluation she became very anxious. She develop nausea and vomiting, and abdominal pain. Patient reports having 5 loose stools per day. She reports having occasional bloody stool. She has not vomited up any blood. She reports a 30 lb weight loss over the past year. According to her the patient has a severe anxiety disorder. She has been followed by social group worker at the [facility]. She has an appointment to see Dr. Bermudez but has yet to see her. Dr. Bermudez has been working with Dr. Lyn to modify her medical regimen to improve her anxiety. Plans are in place for her to have inpatient psychiatric evaluation. Unfortunately given her multiple medical problems in addition to anxiety disorder is been difficult to find a place for her. Her is convinced that her current symptomatology is related to anxiety. Patient was due seen in the emergency department last night. She underwent a CT of the abdomen and pelvis which was negative for obstruction. Her laboratory studies were unremarkable except for hypokalemia. The patient was discharged back home. I received a call today from Dr. Lyn who recommended inpatient admission given her persistent vomiting and hypokalemia. She is admitted at this time for further evaluation. The patient does complain of back pain. She has a compression fracture, she also has had some incontinence to urine. Discharge Providers Date of admission: 08/19/18 11:41 Primary care physician: Ana Lyn MD Consults: 08/19/18 12:10 Consult to Dietitian, Adult Routine Comment: Reason For Exam: wieght loss due to past chemo treatment 08/19/18 15:04 Consult to Occupational Therapy Evaluate & Treat Comment: Physician Instructions: Evaluate and treat Consult to Physical Therapy Evaluate & Treat Comment: Physician Instructions: Evaluate and Treat 08/19/18 15:06 Consult to Dietitian, Adult Routine Comment: Reason For Exam: severe protein calorie malnutrition Discharge provider: Olena Whitfield MD Discharge Date: 08/22/18 Summary Discharge Diagnosis: (1) Hypokalemia: (2) Severe protein-calorie malnutrition (Tran: less than 60% of standard weight ): (3) Anxiety and depression: (4) Esophageal cancer: (5) Abdominal pain: Hospital Course: This is a very debilitated 67-year-old female who has been dealing with esophageal cancer on top of her baseline severe anxiety. This particular combination has produced a severe protein calorie malnutrition which has been very challenging to breakthrough. During this hospitalization her weight ranged between 37 and 39 kg despite all efforts to treat her anxiety and increase her oral intake. Felt Puller tried for several days to find a psychiatric inpatient omalley that would be appropriate for her but ultimately that effort was thwarted. The hypokalemia has been stabilized. Her has been faithfully visiting and has been very helpful. He has agreed to try taking her home, to see if she will eat better there, and to see if help from the crisis [facility] team can be stabilizing for her while she waits for a follow-up with Dr. Mishra for esophageal cancer reassessment at [facility] later this month. She will also follow up with Dr. Riki uribe. Total time today is 31 min. Exam Vital Signs (past 8 hours): - 08/22/18 03:45 08/22/18 07:25 08/22/18 09:55 Temperature 98.5 F 98.9 F Pulse Rate 86 87 Respiratory Rate 16 16 Blood Pressure 131/94 H 140/80 Pulse Oximetry 96 97 95 Oxygen Delivery Method Room Air Oxygen Flow Rate 0 Narrative Exam Narrative: On exam she looks more alert, calm and a little bit stronger. She appears be eating more than yesterday. Heart is regular rate and rhythm without murmur. Lungs are clear to auscultation bilaterally. Abdomen is soft, bowel sounds positive, nontender, no masses, quite scaphoid. Extremities are no ankle edema. Objective Labs Result Diagrams: 08/20/18 05:51 08/20/18 05:51 Discharge Plan Discharge Plan Patient Disposition: Home Health Service Transfer to: Home Health, Other Discharge comment: She will be followed by the [facility] program for the severe Anxiety component of her malnourisment. They will be able to see her very soon, if not today. Discharge Med Rec/Prescriptions Prescriptions: Continue montelukast [Singulair] 10 MG tablet 10 mg PO DAILY Qty: 0 RF: 0 acetaminophen 325 MG tablet 325 mg PO Q4HP PRN (Reason: Abdominal Discomfort) Qty: 0 RF: 0 pantoprazole [Protonix] 40 MG tablet,delayed release (DR/EC) 40 mg PO DAILY Qty: 0 RF: 0 ondansetron HCl 4 mg tablet 4 mg PO BID PRN (Reason: Nausea) RF: 0 sertraline 100 mg tablet 100 mg PO DAILY RF: 0 ondansetron 8 mg tablet,disintegrating 8 mg PO Q12H PRN (Reason: Nausea And Vomiting) RF: 0 Calcium 500 + D 2,000 mg 1 tab PO QPM RF: 0 trazodone 50 mg tablet 50 mg PO BEDTIME RF: 0 levetiracetam [Keppra] 750 mg tablet 750 mg PO BID Qty: 60 RF: 3 hydrocodone-acetaminophen 5-325 mg tablet 1 tab PO Q8H PRN (Reason: pain) Qty: 30 RF: 0 lorazepam 1 mg tablet 1 mg PO BID PRN (Reason: anxiety or sleep) Qty: 30 RF: 0 clonazepam 0.25 mg tablet,disintegrating 0.25 mg Translingual PRN MDD 2 PRN (Reason: Anxiety) Qty: 30 RF: 0 Follow up/Referrals: Ana Lyn MD [Primary Care Provider] - Provider Discharge Instructions Diet: Diet as Tolerated Visit Report/Discharge Packet Instructions: Nausea (Alternative Therapy), Diarrhea, DI for Anxiety -- Adult, How to Prevent Falls, DI for Nausea -- Adult Visit Report Forms: Stroke Signs & Symptoms Discharge Data Primary Care Provider: Ana Lyn Attending Provider: Anneliese Crow Admit Date/Time: 08/19/18 11:41 Quality VTE Deep Vein Thrombosis/Pulmonary Embolism Present on Admission: No
[2018-08-22 11:35] VITALS: BP 132/92; PULSE 97; RESP 18; TEMP 37.1; O2SAT 97
--- NOTE | 2018-08-22 12:47 | CM.DPC ---
Addendum entered by PHU Gastelum 08/22/18 13:37: ADD: SW left ms for pt's Onc SW/Navigator Chey with update on d/c plan for today since Inpt MH could not be secured for the pt. BF Original Note: DCP Discharge Home SW received a message from [facility] stating that they have reviewed the faxed clinicals and decline accepting the pt due to medical complexity. Previous SW team also attempted [facility], [facility], and [facility] and all facilities declined either due to medical needs or full. SW updated MD and RN. Per MD, pt is medically stable to d/c home with spouse today. SW met bedside with pt and spouse and confirmed that since Inpt Mental Health hospitalization was not an option at this time, they are agreeable with discharge home and [facility] to meet with them in their home at discharge for safety planning and enrolling pt in services if needed. Spouse has been in contact with [facility] to update on when they will be home. SW called [facility] and also updated them and confirmed they plan to meet with pt and spouse today. Plan: Patient to d/c home today via spouse POV with [facility] (Crisis Prevention Intervention Team) to meet with them in the home at d/c for safety planning and community support. PHU Gastelum
--- NOTE | 2018-08-22 13:14 | PC.NURSE ---
Day Shift-Pt discharging today. Behavior Assessment in home after 1400 according to pt's Adilson. Port NS/Heparin flush per protocol, Needle easily removed, no bleeding. Gauze and tegaderm placed over port site per pt request. Reviewed written and verbal discharge instruction from Discharge summary and prescription review. No voiced concerns. Has all belongings. Pt left unit via wheelchair with PLATE CONDITIONER at 1316 in no distress. Pt's present to drive pt home.
--- NOTE | 2018-08-24 15:15 | CM.DPNOTE ---
Patient discharged to home with supportive . DC follow up occurred with [facility] team but no referrals made to address patient medical needs including malnutrition. Referral was made by [facility] team to [facility]; Chey Manriquez sent email and called [facility] this morning with heightened concern for patient and lack of resources for patient; Call placed to Dr Tito Lyn, patients PCP to discuss referral option for a PEG tube placement for patient; Per Dr Tito Lyn., agreeable to initiating a referral for a PEG tube, if patient agreeable; Call then placed to [facility], left a message for nurse to remind Dr Tito Lyn to initiate a referral to Dr Dhillon for a PEG placement; Dr Tito Lyn indicates not necessary to see patient 1st to initiate a referral, previously saw patient 3 days ago. Left message on Chey Manriquez phone number at Oncology to provide update on options to address patient malnutrition and to make arrangements to contact patient and supportive spouse to present option for PEG tube. Social Work and [facility] following case;
== END 2018-08-22 13:16 | disposition home or self-care (01) | DRG 641 ==
PROVIDERS: Admitting Provider Internal Medicine; PCP Internal Medicine; Visit Provider Internal Medicine
DX: E43 Unspecified severe protein-calorie malnutrition (principal); Z68.1 Body mass index [BMI] 19.9 or less, adult; C15.9 Malignant neoplasm of esophagus, unspecified; E87.6 Hypokalemia; F41.9 Anxiety disorder, unspecified; R10.9 Unspecified abdominal pain; R11.2 Nausea with vomiting, unspecified; Z87.891 Personal history of nicotine dependence; G40.909 Epilepsy, unspecified, not intractable, without status epilepticus
CPT/HCPCS: 36415; 74177; 80053; 81003; 81015; 83690; 85025; 85610; 85730; 96374; 97116; 97162; 97165; 97530; 97535; 99285; J1170; J1642; J1650; J2060; J2405; Q9967

== ENCOUNTER → 2019-03-22 14:42 | Outpatient (CLI) | payer MEDICARE, OTHER, SELFPAY ==
[2018-08-25 09:41] VITALS: BMI 14.6
--- NOTE | 2019-03-22 14:46 | DI.RAD.S_ITS ---
PROCEDURE: XR CHEST 2V INDICATIONS: COUGH TECHNIQUE: 2 views of the chest were acquired. COMPARISON: [facility] [place], CR, XR THORACOLUMBAR SPINE 2 VIEWS, 10/02/2018, 11:02. [facility], CR, XR CHEST 1V, 07/02/2018, 22:38. FINDINGS: Surgical changes and devices: Right chest port with the tip projecting in the mid SVC as before. Right hilar surgical clips. Lungs and pleura: No definite acute consolidation however mild patchy opacities projecting in the left lung base, mildly increased. No pleural effusions or pneumothorax. Mediastinum: Mediastinal contours are normal. Heart size is normal. Bones and chest wall: No suspicious bony abnormalities. Redemonstration of vertebroplasty, and adjacent vertebral body compression fracture grossly unchanged. Soft tissues appear unremarkable. IMPRESSION: Mildly increased patchy opacities involving the left lung base raise the possibility of early broncho-pneumonia. If there is persistent clinical diagnostic uncertainty, continued surveillance with short interval chest radiographs after treatment is recommended. Dictated by: Woo Gonzáles M.D. on 03/22/2019 at 16:49 Approved by: Woo Gonzáles M.D. on 03/22/2019 at 16:51
== END ==
PROVIDERS: PCP Internal Medicine; Visit Provider Internal Medicine
DX: R05 Cough (principal)
CPT/HCPCS: 71046

== ENCOUNTER → 2019-07-26 13:00 | Oncology outpatient (ONC) | payer MEDICARE, OTHER, SELFPAY ==
--- NOTE | 2018-06-25 13:48 | MSW.VISIT ---
FEEDLOT MANAGER Visit note - Data of Consult Primary Care Provider: Ana Lyn MD - Consult Narrative Reason for consult: Counseling to address severe anxiety and depression. Narrative: Leonela Shirley is a 67 year old female who is seeking counseling to address what she describes as debilitating anxiety attacks, depression and difficulty with overall functioning. Pt is accompanied today by her , Adilson, who she defers to often in sharing her story and concerns today. She was diagnosed with esophageal cancer in April 2017, underwent chemotherapy and radiation at [facility], and surgery at [facility] last September,. She expressed feeling emotionally debilitated by anxiety symptoms after the completion of her treatment, and has been experiencing worsening nausea, vomiting and anxiety attacks for the last several months. Physically, patient appears very cachectic and frail. Dizziness has been an ongoing issue, which led to 2-falls; one in which she fractured her elbow, and the second one in which she fractured vertebra in her back. She describes a very low threshold of stress tolerance, and has been hospitalized twice due to the severity of her anxiety attacks. After her last hospitalization at [facility], they were unable to identifiy any physical reasons for her ongoing nausea/vomiting. She states that she is unable to eat very much due to often feeling overly full or sick right after eating, and therefore has been unable to maintain a healthy weight. She has been prescribed Lorazapam 1 mg for PRN anxiety, however this doesn't seem to have a lasting, beneficial effect for her. She has not been seen by a silk screen printer, or a psychiatrist to address the psychological/somatic reaction she is having with food. She states that she has so much anxiety now about eating, that she becomes unable to eat, and begins vomiting. This appears to be a cycle that is repeating itself daily. Spouse states that pt is sleeping about 18-hours per day. There have been times when she was completely withdrawn from family and slept day and night, unless directly interacting with her caregivers/family. Spouse describes that behavior as her being comatose, although pt was aware and just extremely withdrawn. She gets no exercise, and has not followed most of the advice from her primary care doctor or previous counselor. Her primary goal is to get back to the way I used to be. CC: Chey Cabrera, FEEDLOT MANAGER Patient reports pain?: Yes - Pain Details Pain location: Pt describes her pain as centering around her spinal fractures and elbow. Pain Scale Used: Pt did not rate her pain during this visit. Pain Frequency: Intermittent Pain referral/management: Managed by PCP - Code Status Resuscitation Status: Full Code - Medical, Surgical, Family History Medical History: Medical History (Last Updated 06/03/18 @ 07:47 by Priyanka Parisi MD) Upper GI bleed (Acute) Post surgical complication (Acute) Acute anxiety (Inactive) Surgical History: Surgical History (Last Updated 06/03/18 @ 07:47 by Priyanka Parisi MD) No pertinent past surgical history - Social History housing: house household members: spouse service: No current occupational status: retired - Psychological Status Stressors: Psychosocial, Health Depression-related: Depressed mood: Present, Loss of interest: Present, Fatigue: Present, Concentration/focus: Present, Insomnia: Present, Appetite changes: Present, Feel guilt/worthlesness: Present, Suicidal ideation: Absent, Psychomotor agitation: Present, Psychomotor retardation: Absent - Mental Status Exam Orientation:: Time, Place and Person Appearance:: Disheveled Speech:: Normal rate/volume/yung Movement:: Agitated Mood:: Depressed, Anxious, Fearful, Apathetic, Sad, Hopeless Affect:: Apathetic, Tearful Thought Process:: Disorganized Thought Content:: Obsessions Suicide Risk Degree: Low - Assessment/Goals/Plan Assessment: Patient continues to struggle with overwhelming anxiety, fear and depression, despite having completed cancer treatment 1-year ago. Her spouse expresses feeling helpless that he has not been able to help her overcome these distressing symptoms, and he feels equally frustrated and burned out as a caregiver in terms of feeling that patient never follows through with advice to feel better. Pt seems to be in a state of constant overstimulation, becomes easily distraught, and is unable to identify what triggers her anxiety attacks. She shared that she also experienced the untimely of her close cousin, also within the same time period that she was getting her esophogeal/stomach surgery during cancer treatment, and presents with clear indicators of complicated, unprocessed grief. After considering all of the above symptoms and underlying emotional stressors, it seems reasonable that patient is struggling with PTSD, in conjunction with overall physical deterioration and decline. Both patient and her felt that this assessment feels accurate and resonates with their experience over the last year. Pt is also not taking any long-acting anxiolytic or antidepressant therapy, which this FEEDLOT MANAGER feels needs more evaluation and consideration. Plan: Patient's stated goal: To get back to the way I used to be, to go places, travel, feel normal again. Discussed initial goals as follows: 1. Pt will meet with this counselor 1x per week, to work on anxiety reduction, desensitization skills relating to triggers, and increase coping/stress tolerance. 2. FEEDLOT MANAGER will f/u with a silk screen printer referral for patient to consult re: eating concerns, stress-induced vomiting/nausea, and plan for nutritional rehabilitation. 3. FEEDLOT MANAGER will assist pt in completing the intake packet for behavioral health. She will then follow-up with a psychiatric consult with Dr. Bermudez for medication recommendations for PTSD and severe anxiety. - Problem List Time Spent with patient: 60 minutes spent with patient. Home Medications: Home Medications Medication Instructions Recorded Confirmed Type mometasone-formoterol [Dulera] 2 puff INH BID #0 07/04/07 History montelukast [Singulair] 10 mg PO QDAY #0 07/04/07 History acetaminophen 325 mg PO Q4HP PRN #0 12/03/17 History azithromycin [Zithromax] 250 mg PO SEE INSTRUCTIONS #6 tab 12/03/17 Rx diphenhydramine-acetaminophen 1 tab PO HSP PRN #0 12/03/17 History [Tylenol PM Extra Strength] loratadine [Claritin] 10 mg PO QDAY #30 tab 12/03/17 Rx oxycodone 5 ml PO Q6HP PRN #0 12/03/17 History pantoprazole [Protonix] 40 mg PO QDAY #0 12/03/17 History ondansetron [Zofran ODT] 4 mg SUBLINGUAL Q6HP PRN #20 odt 12/05/17 Rx promethazine 25 mg PO Q6HP PRN #15 tab 12/05/17 Rx Allergies/Adverse Reactions: Allergies Allergy/AdvReac Type Severity Reaction Status Date / Time simvastatin [SIMVASTATIN] AdvReac Unknown LEG Unverified 12/31/17 12:04 CRAMPING sulfamethoxazole AdvReac Unknown DIARRHEA Unverified 12/31/17 12:04 [From BACTRIM] trimethoprim [From BACTRIM] AdvReac Unknown DIARRHEA Unverified 12/31/17 12:04
--- NOTE | 2018-07-02 13:17 | MSW.VISIT ---
JUMP ROLL OPERATOR Visit note - Data of Consult Primary Care Provider: Ana Lyn MD - Consult Narrative Reason for consult: Counseling to address severe anxiety and declining functional status. Narrative: Leonela Shirley is a 67 year old female here to continue counseling assessment and plan for addressing severe anxiety and overall declining functional status. Pt arrived with her today appearing already anxious and very withdrawn. Her spouse shared that she seemed to be fine earlier in the morning, however as they began driving to this appointment, that patient began to demonstrate increased anxiety, which led to nausea and the urgent sense of needing to vomit. Pt did not vomit on the way, however she began to dry heave uncontrollably once she was seated and our counseling session began. Her decided to leave the room, thinking that this may help pt to calm herself, however she became unable to focus, unable to be calmed or redirected from her symptoms, and ultimately we decided to end the session and reschedule for early next week. Pt states that she does want to return, however her dry heaving became constant. Rescheduled for 11:00am next Friday, 07/06 at 11:00am. CC: Chey Cabrera JUMP ROLL OPERATOR Patient reports pain?: No - Pain Details Pain Scale Used: Pt did not rate her pain during this visit. Pain Frequency: Intermittent Pain referral/management: Managed by PCP - Code Status Resuscitation Status: Full Code - Medical, Surgical, Family History Medical History: Medical History (Last Reviewed 07/05/18 @ 13:15 by Airam Donaldson RN) Upper GI bleed (Acute) Post surgical complication (Acute) Acute anxiety (Inactive) Surgical History: Surgical History (Last Updated 07/02/18 @ 23:14 by Toshia Borrero DO) History of esophageal surgery History of kyphoplasty No pertinent past surgical history - Social History substance use type: does not use housing: house current occupational status: retired - Psychological Status Level of Distress: 10 Stressors: Interpersonal, Psychosocial, Health Depression-related: Depressed mood: Present, Loss of interest: Present, Fatigue: Present, Concentration/focus: Present, Insomnia: Present, Hypersomnia: Present, Appetite changes: Present, Feel guilt/worthlesness: Present, Suicidal ideation: Absent, Psychomotor agitation: Present, Psychomotor retardation: Absent - Mental Status Exam Orientation:: Time, Place and Person Appearance:: Disheveled Speech:: Blunted Movement:: Agitated Mood:: Agitated Affect:: Guarded, Tearful, Anxious Thought Process:: Disorganized Thought Content:: Other - Assessment/Goals/Plan Assessment: Pt was too debilitated and unable to focus today to engage in counseling. Goals: Initial goals as follows: 1. Pt will meet with this counselor 1x per week, to work on anxiety reduction, desensitization skills relating to triggers, and increase coping/stress tolerance. 2. JUMP ROLL OPERATOR will f/u with a customs import specialist referral for patient to consult re: eating concerns, stress-induced vomiting/nausea, and plan for nutritional rehabilitation. 3. JUMP ROLL OPERATOR will assist pt in completing the intake packet for behavioral health. She will then follow-up with a psychiatric consult with Dr. Bermudez for medication recommendations for PTSD and severe anxiety. - Problem List Time Spent with patient: 30 minutes Home Medications: Home Medications Medication Instructions Recorded Confirmed Type montelukast [Singulair] 10 mg PO QDAY #0 07/04/07 07/02/18 History acetaminophen 325 mg PO Q4HP PRN #0 12/03/17 07/02/18 History diphenhydramine-acetaminophen 1 tab PO HSP PRN #0 12/03/17 07/02/18 History [Tylenol PM Extra Strength] pantoprazole [Protonix] 40 mg PO QDAY #0 12/03/17 07/02/18 History ondansetron [Zofran ODT] 4 mg SUBLINGUAL Q6HP PRN #20 odt 12/05/17 07/02/18 Rx hydrocodone-acetaminophen 1 tab PO Q4-6H PRN 07/02/18 07/02/18 History lorazepam 1 mg PO QD-BID PRN 07/02/18 07/02/18 History atenolol 25 mg PO DAILY #30 tab 07/05/18 Rx levetiracetam [Keppra] 750 mg PO BID #60 tab 07/05/18 Rx sertraline [Zoloft] 50 mg PO DAILY #30 tab 07/05/18 Rx trazodone 50 mg PO DAILY #30 tab 07/05/18 Rx Allergies/Adverse Reactions: Allergies Allergy/AdvReac Type Severity Reaction Status Date / Time simvastatin [SIMVASTATIN] AdvReac Unknown LEG Verified 07/02/18 23:26 CRAMPING sulfamethoxazole AdvReac Unknown DIARRHEA Verified 07/02/18 23:26 [From BACTRIM] trimethoprim [From BACTRIM] AdvReac Unknown DIARRHEA Verified 07/02/18 23:26 - Problem List Patient Problems: Current Active Problems (Last Reviewed 07/05/18 @ 13:15 by Airam Donaldson RN) Post traumatic stress disorder (PTSD) (Acute)
--- NOTE | 2018-07-06 13:44 | MSW.VISIT ---
STATISTICS TUTOR Visit note - Data of Consult Primary Care Provider: Ana Lyn MD - Consult Narrative Reason for consult: F/u post hospitalization for acute anxiety, change in LOC. Narrative: Leonela Shirley is a 67 year old female recently discharged from inpatient hospitalization due to severe anxiety, intractable nausea/vomiting and change in level of consciousness. Spouse states that following our last counseling session, which was ended early due to pt's inability to engage due to severe anxiety and nausea/vominting, that pt became progressively more confused, agitated, continued with nausea/vomiting, and ultimately demonstrated what seemed to resemble a grand mal seizure. Spouse called 911 and pt was transported to [facility], then later admitted to the ICU for monitoring and symptom management. Pt continued to remain non-verbal and unable to respond verbally or engage with spouse/care team until late Friday/early Friday. She has no recollection of the events that took place until her cognition improved on Friday. She received a thorough work-up during admission, and ultimately medication changes were made to improve her overall coping and anxiety. She was also able to tolerate more PO intake during this hospitalization, and was assessed by speech therapy as able to tolerate thin liquids with no difficulty. The inpt team seemed to agree that pt definately meets the criteria for a stat psychiatric consult, however Dr. Bermudez was unable to see her during this hospitalization. Pt's spouse turned in the new pt packet to behavioral health during this inpt stay as well, so the hope remains that pt will be able to have an expedited assessment/medication consult within the near future. Today, pt presents as much more calm upon arrival to this counseling visit. She appears well-groomed, was smiling, and did not demonstrate any nausea/vomiting during session. STATISTICS TUTOR focused on encouraging pt to share this experience, provided teaching re: stress tolerance and relaxation techniques, and provided pt with some materials to take home and try. She was much more engaged and willing to try some of these tools, with the encouragement of her spouse and this STATISTICS TUTOR. STATISTICS TUTOR faxed the completed referral to see the [facility] plant health manager, which pt and spouse will f/u with. Both pt and spouse agree that although she is feeling more stable today, that we need to keep moving forward with completing a more comprehensive, multi-disciplinary assessment of the mind/body connection of her chronic nausea/vomiting/anxiety, as well as to improve her overall physical functioning with professional dietary guidance and recommendations. STATISTICS TUTOR also focused on caregiver coping with spouse during this session, which is another layer of difficulty in terms of his own ability to cope with her acute anxiousness, frailty and deteriorating function. Ana Lyn MD Patient reports pain?: No - Pain Details Pain Scale Used: Pt did not rate her pain during this visit. Pain Frequency: Intermittent Pain referral/management: Managed by PCP - Code Status Resuscitation Status: Full Code - Medical, Surgical, Family History Medical History: Medical History (Last Updated 07/06/18 @ 13:39 by PHU Hernandez) Upper GI bleed (Acute) Post surgical complication (Acute) Acute anxiety (Inactive) Surgical History: Surgical History (Last Updated 07/02/18 @ 23:14 by Toshia Borrero DO) History of esophageal surgery History of kyphoplasty No pertinent past surgical history - Psychological Status Stressors: Interpersonal, Psychosocial, Health Depression-related: Depressed mood: Absent, Loss of interest: Absent, Fatigue: Present, Concentration/focus: Present, Insomnia: Absent, Hypersomnia: Absent, Appetite changes: Present, Feel guilt/worthlesness: Absent, Suicidal ideation: Absent, Psychomotor agitation: Present, Psychomotor retardation: Absent - Mental Status Exam Orientation:: Time, Place and Person Appearance:: Well-groomed, Malnourished Speech:: Normal rate/volume/yung Movement:: Agitated Mood:: Anxious Affect:: Guarded, Congruent with mood Thought Process:: Normal Suicide Risk Degree: Low - Assessment/Goals/Plan Assessment: Pt is demonstrating some improvement in the reduction of her anxiety and nausea. She reports that she had only vomited once prior to this counseling visit today, which is also improvement. She is beginning to stabilize both cognitively and physically enough to be able to process and utilize the tools and suggestions offered during counseling. Spouse presents as much more relaxed, and able to share his own feelings and sense of helplessness that he has been experiencing over the last several months, and expressed feeling hopeful that we will be able to make some progress towards pt's goals for improvement. Goals: Initial goals as follows: 1. Pt will meet with this counselor 1x per week, to work on anxiety reduction, desensitization skills relating to triggers, and increase coping/stress tolerance. 2. Pt and spouse will f/u with a plant health manager consult for patient to re: eating concerns, stress-induced vomiting/nausea, and plan for nutritional rehabilitation. 3. STATISTICS TUTOR will assist pt in completing the intake packet for behavioral health. She will then follow-up with a psychiatric consult with Dr. Bermudez for medication recommendations for PTSD and severe anxiety. Plan: Pt will meet with this STATISTICS TUTOR again next Friday, 07/13 at 11:00am for continued focus on stress tolerance, improved coping, and multi-disciplinary assessment of plan of care. Home Medications: Home Medications Medication Instructions Recorded Confirmed Type montelukast [Singulair] 10 mg PO QDAY #0 07/04/07 07/02/18 History acetaminophen 325 mg PO Q4HP PRN #0 12/03/17 07/02/18 History diphenhydramine-acetaminophen 1 tab PO HSP PRN #0 12/03/17 07/02/18 History [Tylenol PM Extra Strength] pantoprazole [Protonix] 40 mg PO QDAY #0 12/03/17 07/02/18 History ondansetron [Zofran ODT] 4 mg SUBLINGUAL Q6HP PRN #20 odt 12/05/17 07/02/18 Rx hydrocodone-acetaminophen 1 tab PO Q4-6H PRN 07/02/18 07/02/18 History lorazepam 1 mg PO QD-BID PRN 07/02/18 07/02/18 History atenolol 25 mg PO DAILY #30 tab 07/05/18 Rx levetiracetam [Keppra] 750 mg PO BID #60 tab 07/05/18 Rx sertraline [Zoloft] 50 mg PO DAILY #30 tab 07/05/18 Rx trazodone 50 mg PO DAILY #30 tab 07/05/18 Rx Allergies/Adverse Reactions: Allergies Allergy/AdvReac Type Severity Reaction Status Date / Time simvastatin [SIMVASTATIN] AdvReac Unknown LEG Verified 07/02/18 23:26 CRAMPING sulfamethoxazole AdvReac Unknown DIARRHEA Verified 07/02/18 23:26 [From BACTRIM] trimethoprim [From BACTRIM] AdvReac Unknown DIARRHEA Verified 07/02/18 23:26 - Problem List Patient Problems: Current Active Problems (Last Updated 07/06/18 @ 13:39 by PHU Hernandez) Anxiety associated with depression (Acute) Post traumatic stress disorder (PTSD) (Acute)
--- NOTE | 2018-07-10 13:06 | MSW.VISIT ---
CONE MACHINE FEEDER Visit note - Data of Consult Primary Care Provider: Ana Lyn MD - Consult Narrative Reason for consult: Counseling to address severe anxiety and overall decline in function. Narrative: Leonela Shirley is a 67 year old female here to continue counseling in the context of addressing severe anxiety/depression. She arrived today accompanied by her , Adilson. Pt is unable to tolerate counseling without the security of having him close in proximity, and feels more comfortable deferring to him to help explain care coordination and how she is doing at home post-hospitalization. Pt arrived today presenting as well-groomed, alert and far less anxious than she has been in any of our previous visits. Spouse states that pt has been taking all of her newly prescribed medications, is less nauseous, and is vomiting less frequently. Since her last visit, she has seen her primary care doctor, a prepress specialist, and has completed the first evaluation visit with a Neurologist. [facility], pt has not had any siezure-like events. Pt initiated sharing that the relaxation/healing CD that this CONE MACHINE FEEDER lent to them has been very beneficial, and states that she has been listening to it in bed usually twice per day. She shared that for the first time in a very long time, that she felt her body relax, and could completely relate to the words of the therapist on the CD. We were able to focus again on that feeling she had when she was relaxed, and linked it with her feeling safe. This CONE MACHINE FEEDER provided encouragement for pt in her beginning to make small steps, and making some progress, towards becoming more present in her life, for being willing to try some of the suggestions and tools that we are discussing in counseling, and to learn more about what the triggering thoughts are behind the fear and anxiety. CC: PHU Hernandez Patient reports pain?: No - Pain Details Pain Scale Used: Pt did not rate her pain during this visit. Pain Frequency: Intermittent Pain referral/management: Managed by PCP - Code Status Resuscitation Status: Full Code - Medical, Surgical, Family History Medical History: Medical History (Last Updated 07/06/18 @ 13:39 by PHU Hernandez) Upper GI bleed (Acute) Post surgical complication (Acute) Acute anxiety (Inactive) Surgical History: Surgical History (Last Updated 07/02/18 @ 23:14 by Toshia C Mank, DO) History of esophageal surgery History of kyphoplasty No pertinent past surgical history - Psychological Status Stressors: Interpersonal, Psychosocial, Health Depression-related: Depressed mood: Present, Loss of interest: Present, Fatigue: Present, Concentration/focus: Absent, Insomnia: Absent (Pt is beginning to sleep through most of the night since beginning Trazadone.), Hypersomnia: Absent, Appetite changes: Absent, Feel guilt/worthlesness: Present, Suicidal ideation: Absent, Psychomotor agitation: Absent, Psychomotor retardation: Absent - Mental Status Exam Orientation:: Time, Place and Person Appearance:: Well-groomed, Malnourished Speech:: Normal rate/volume/yung Movement:: Calm Mood:: Depressed, Sad Affect:: Congruent with mood Thought Process:: Normal Thought Content:: Normal Suicide Risk Degree: Low - Assessment/Goals/Plan Assessment: Patient is beginning to benefit from the recent additions/changes in her anti-depressant and anxiolytic medications. She was much more engaging in today's visit, and was willing to share some of the feelings of hoplessness, worthlessness, and fears surrounding as a result of her cancer experience. She was able to share things with her spouse that she had not previously shared, which in turn is helping him to feel more hopeful for the healing potential that she clearly wants to achieve. We discussed some of her behaviors that self-sabatage her intent to become healthy and independent as a functioning adult, and encouraged her to reclaim some of the care tasks that Adilson has been doing for her, which she can easily do on her own. Of note, at the end of this session, pt stood, on her own and without Adilson's assistance, and openly embraced this CONE MACHINE FEEDER. She expressed feeling so thankful for this help, and began crying, only this time she was crying because she felt happy and hopeful. Goals: 1. Pt will meet with this counselor 1x per week, to work on anxiety reduction, desensitization skills relating to triggers, and increase coping/stress tolerance. 2. Pt and spouse will continue to work with her primary care physician and prepress specialist re: eating concerns, stress-induced vomiting/nausea, and plan for nutritional rehabilitation. 3. CONE MACHINE FEEDER will assist pt in completing the intake packet for behavioral health. She will then follow-up with a psychiatric consult with Dr. Bermudez for medication recommendations for PTSD and severe anxiety. Pt's spouse has turned in this application, and they are waiting to hear back from Behavioral Health to schedule an appointment. Plan: Pt will meet with this CONE MACHINE FEEDER again next Friday, 07/13 at 11:00am for continued focus on stress tolerance, improved coping, and multi-disciplinary plan of care-coordination. - Problem List Time Spent with patient: 60 minutes Home Medications: Home Medications Medication Instructions Recorded Confirmed Type montelukast [Singulair] 10 mg PO QDAY #0 07/04/07 07/02/18 History acetaminophen 325 mg PO Q4HP PRN #0 12/03/17 07/02/18 History diphenhydramine-acetaminophen 1 tab PO HSP PRN #0 12/03/17 07/02/18 History [Tylenol PM Extra Strength] pantoprazole [Protonix] 40 mg PO QDAY #0 12/03/17 07/02/18 History ondansetron [Zofran ODT] 4 mg SUBLINGUAL Q6HP PRN #20 odt 12/05/17 07/02/18 Rx hydrocodone-acetaminophen 1 tab PO Q4-6H PRN 07/02/18 07/02/18 History lorazepam 1 mg PO QD-BID PRN 07/02/18 07/02/18 History atenolol 25 mg PO DAILY #30 tab 07/05/18 Rx levetiracetam [Keppra] 750 mg PO BID #60 tab 07/05/18 Rx sertraline [Zoloft] 50 mg PO DAILY #30 tab 07/05/18 Rx trazodone 50 mg PO DAILY #30 tab 07/05/18 Rx Allergies/Adverse Reactions: Allergies Allergy/AdvReac Type Severity Reaction Status Date / Time simvastatin [SIMVASTATIN] AdvReac Unknown LEG Verified 07/02/18 23:26 CRAMPING sulfamethoxazole AdvReac Unknown DIARRHEA Verified 07/02/18 23:26 [From BACTRIM] trimethoprim [From BACTRIM] AdvReac Unknown DIARRHEA Verified 07/02/18 23:26 - Problem List Patient Problems: Current Active Problems (Last Updated 07/06/18 @ 13:39 by Chey Cabrera CONE MACHINE FEEDER) Anxiety associated with depression (Acute) Post traumatic stress disorder (PTSD) (Acute)
--- NOTE | 2018-07-15 10:03 | MSW.VISIT ---
WAFER LINE WORKER Visit note - Data of Consult Primary Care Provider: Ana Lyn MD - Consult Narrative Reason for consult: Counseling to address severe anxiety/depression/decreased function. Narrative: Leonela Shirley is a 67 year old female, here today with her spouse to continue counseling for improving stress tolerance, anxiety and overall functional decline related to poor nutritional intake. Pt arrives today presenting as withdrawn, guarded, and disheveled. Her spouse states that he has continued to struggle in his attempts to get her to eat, or to even drink 1-Ensure, stating that she drinks about 2/3 and that's it. She was tearful several times throughout the visit, and seemed to have a difficult time tracking. She continues to remain in bed or in her chair sleeping 18+hours per day. In exploring with her why she felt so sad, and tearful, she was able to share that she wants to hide, and feels that she is letting her down by her current state. Although they have family staying for the week, pt has not wanted to engage, and has not wanted to go on any outings with the group. In terms of her ability to utilize self-calming techniques discussed in counseling, pt states that she is enjoying the guided imagery CD that this WAFER LINE WORKER lent to her. However, spouse states that she seems to be using the CD's to escape, and now wants to listen to my CD before considering going out with him to the store, or taking her medications, or if she experiences any kind of distress. WAFER LINE WORKER did call pt's primary care provider, Dr. Lyn, and relayed concerns that pt is continuing to decline, and requested that they see her at an earlier appointment time rather than next month. WAFER LINE WORKER also requested that pt's antidepressant dosage be considered for an increase, as the starting dose is not showing therapeutic benefit at this time. CC: PHU Hernandez Patient reports pain?: Yes - Pain Details Pain location: Pt reports back pain, overall malaise. Pain Scale Used: Numeric (1 - 10) (Pain is rated at a (6)) Pain Frequency: Intermittent Pain Description: Aching Pain referral/management: Managed by PCP - Code Status Resuscitation Status: Full Code - Medical, Surgical, Family History Medical History: Medical History (Last Updated 07/06/18 @ 13:39 by PHU Hernandez) Upper GI bleed (Acute) Post surgical complication (Acute) Acute anxiety (Inactive) Surgical History: Surgical History (Last Updated 07/02/18 @ 23:14 by Toshia Borrero DO) History of esophageal surgery History of kyphoplasty No pertinent past surgical history - Social History alcohol intake frequency: other (Pt does not drink alcohol.) - Psychological Status Stressors: Interpersonal, Psychosocial, Health Depression-related: Depressed mood: Present, Loss of interest: Present, Fatigue: Present, Concentration/focus: Present, Insomnia: Absent, Hypersomnia: Present, Appetite changes: Present, Feel guilt/worthlesness: Present, Suicidal ideation: Absent, Psychomotor agitation: Present - Mental Status Exam Orientation:: Time, Place and Person Appearance:: Disheveled Speech:: Normal rate/volume/yung Movement:: Agitated Mood:: Depressed, Anxious, Apathetic Affect:: Guarded, Tearful, Anxious Thought Process:: Normal Thought Content:: Normal Suicide Risk Degree: Low - Assessment/Goals/Plan Assessment: Pt is making small progress, and continues to express that she is motivated to improve and work through the complexity of emotions that have led to her physical decline and deep depression. This WAFER LINE WORKER spoke with both pt and spouse about the need for her to have further medical workup and intervention for her nutritional intake, as well as discuss with her doctor the possibility of increasing her antidepressant dose. She does show improvement since beginning the new medications in terms of a significant decrease in nausea and vomiting, including anxiety-related self-induced vomiting. Pt's PCP's office will be calling pt/spouse to offer an appointment for her to be seen and re-evaluated next week. Plan: Continue to focus on stress tolerance, self-calming and CBT techniques to identify thoughts and beliefs about herself that contribute to her sense of fear and hopelessness. Continue to coordinate with pt's PCP as a multi-disciplinary approach to this care plan. - Problem List Time Spent with patient: 60-minutes spent with pt in counseling. Home Medications: Home Medications Medication Instructions Recorded Confirmed Type montelukast [Singulair] 10 mg PO QDAY #0 07/04/07 07/02/18 History acetaminophen 325 mg PO Q4HP PRN #0 12/03/17 07/02/18 History diphenhydramine-acetaminophen 1 tab PO HSP PRN #0 12/03/17 07/02/18 History [Tylenol PM Extra Strength] pantoprazole [Protonix] 40 mg PO QDAY #0 12/03/17 07/02/18 History ondansetron [Zofran ODT] 4 mg SUBLINGUAL Q6HP PRN #20 odt 12/05/17 07/02/18 Rx hydrocodone-acetaminophen 1 tab PO Q4-6H PRN 07/02/18 07/02/18 History lorazepam 1 mg PO QD-BID PRN 07/02/18 07/02/18 History atenolol 25 mg PO DAILY #30 tab 07/05/18 Rx levetiracetam [Keppra] 750 mg PO BID #60 tab 07/05/18 Rx sertraline [Zoloft] 50 mg PO DAILY #30 tab 07/05/18 Rx trazodone 50 mg PO DAILY #30 tab 07/05/18 Rx Allergies/Adverse Reactions: Allergies Allergy/AdvReac Type Severity Reaction Status Date / Time simvastatin [SIMVASTATIN] AdvReac Unknown LEG Verified 07/02/18 23:26 CRAMPING sulfamethoxazole AdvReac Unknown DIARRHEA Verified 07/02/18 23:26 [From BACTRIM] trimethoprim [From BACTRIM] AdvReac Unknown DIARRHEA Verified 07/02/18 23:26 - Problem List Patient Problems: Current Active Problems (Last Updated 07/06/18 @ 13:39 by PHU Hernandez) Anxiety and depression (Acute) Post traumatic stress disorder (PTSD) (Acute)
--- NOTE | 2018-07-27 11:34 | ONC.NAV ---
Description: Care Coordination Activity: Secure e-mail correspondence from pt's spouse re: update on pt's status, see below: Jesús De Anda, I?m really glad that Leonela is making progress! Maybe we should wait a few weeks before she comes back to see me, so that she can work on the physical therapy, give her meds more time to kick in. Meanwhile, Dr. Bermudez (our psychiatrist here at the hospital )has been talking with me about Leonela. She still thinks we should look into the steps that we need to take if Leonela were to severely decline again, for inpatient psychiatric admission. It would be a voluntary placement, however I think that right now is a good time to just gather information, so if we get into a crisis again, that we will all know the best options that are available for her. I?m really glad that you checked in with me, I?ll be making calls today, and will update you once I have a better picture. You?re doing great, Adilson, in the care and love you show for Leonela, it?s very apparent. I hope that you also find times to get out and spend time on your own (self-care!). Please let me know if you have any new updates, concerns, or questions. I?ll call you sometime this week with what I find out re: inpatient care. Thanks! Chey
--- NOTE | 2018-08-04 14:36 | MSW.VISIT ---
[employer] Visit note - Data of Consult Primary Care Provider: Ana Lyn MD - Consult Narrative Reason for consult: Counseling in the context of anxiety, depression, and functional decline. Narrative: Leonela Shirley is a 67 year old female here today with her spouse to continue counseling for improvement of stress tolerance, anxiety/depression, and overall functioning. Pt was seen in the ER this last Friday due to symptoms of intractable nausea and vomiting. She was determined to have diverticulitis, was prescribed antibiotics and pain medications, and has seemed to improve over the last few days. Pt presents as more engaging and interactive today than she has in any other visit with this [employer]. She made eye contact, laughed, made jokes, and even when her left the room, she continued to engage-which is new. [employer] FRAMES facilitated processing of what things she has been doing that seem to be working beneficially for her since we last met. Discussed some self-care suggestions for f/u, including getting her hair done. states that over the last year, she won't shower, brush her teeth, or brush her hair unless he directly intervenes to ensure that she at least bathes, which he needs to assist her with. She has been attending her physical therapy sessions, which also seem to be helping her in terms of some pain management and encouragement of focusing on her body. [employer]AMES offered continued coping support and encouragement for her spouse. CC: Chey Cabrera, [employer]AMES Patient reports pain?: Yes - Pain Details Pain location: Back Pain Scale Used: Numeric (1 - 10) (Pain is rated at a (6)) Pain Frequency: Daily Pain Description: Aching Pain referral/management: Managed by PCP - Code Status Resuscitation Status: Full Code - Medical, Surgical, Family History Medical History: Medical History (Last Updated 08/02/18 @ 15:27 by David Morales DO) Upper GI bleed (Acute) Post surgical complication (Acute) Acute anxiety (Inactive) Esophageal cancer Surgical History: Surgical History (Last Reviewed 08/02/18 @ 15:27 by David Morales DO) History of esophageal surgery History of kyphoplasty No pertinent past surgical history - Psychological Status Stressors: Interpersonal, Psychosocial, Health Depression-related: Depressed mood: Present, Loss of interest: Absent, Fatigue: Present, Concentration/focus: Absent, Insomnia: Absent, Hypersomnia: Present, Appetite changes: Absent, Feel guilt/worthlesness: Absent, Suicidal ideation: Absent, Psychomotor agitation: Absent, Psychomotor retardation: Absent - Mental Status Exam Orientation:: Time, Place and Person Appearance:: Disheveled Speech:: Normal rate/volume/yung Movement:: Calm Mood:: Anxious Affect:: Normal Thought Process:: Normal, Goal-directed Thought Content:: Normal Suicide Risk Degree: Low - Assessment/Goals/Plan Assessment: Pt is demonstrating slow, progressive improvement in emotion regulation, motivation to engage in daily activities, and practicing some of the tools that have been discussed both in counseling and in physical therapy. [employer] offered encouragement, as well as suggestions for a few more suggestions for attending to her personal hygiene and attention to her body. This [employer]AMES expressed feeling encouraged and hopeful in regard to patient's improvement in affect and improved alertness. Goals: !. Continue to utilize tools discussed in counseling re: relaxation, self-soothing, and self-acceptance/self-compassion. 2. Continue to take medications as prescribed. Attend all physical therapy and other healthcare appointments in her efforts to improve her emotional/physical health and well-being. 3. Begin attending to personal hygiene, without prompts from her . This includes setting an appointment to get her hair done. - Problem List Time Spent with patient: 60-minutes Home Medications: Home Medications Medication Instructions Recorded Confirmed Type montelukast [Singulair] 10 mg PO QDAY #0 07/04/07 07/02/18 History acetaminophen 325 mg PO Q4HP PRN #0 12/03/17 07/02/18 History diphenhydramine-acetaminophen 1 tab PO HSP PRN #0 12/03/17 07/02/18 History [Tylenol PM Extra Strength] pantoprazole [Protonix] 40 mg PO QDAY #0 12/03/17 07/02/18 History ondansetron [Zofran ODT] 4 mg SUBLINGUAL Q6HP PRN #20 odt 12/05/17 07/02/18 Rx hydrocodone-acetaminophen 1 tab PO Q4-6H PRN 07/02/18 07/02/18 History lorazepam 1 mg PO QD-BID PRN 07/02/18 07/02/18 History atenolol 25 mg PO DAILY #30 tab 07/05/18 Rx levetiracetam [Keppra] 750 mg PO BID #60 tab 07/05/18 Rx sertraline [Zoloft] 50 mg PO DAILY #30 tab 07/05/18 Rx trazodone 50 mg PO DAILY #30 tab 07/05/18 Rx ciprofloxacin HCl 500 mg PO BID 10 Days #20 tab 08/02/18 Rx metronidazole 500 mg PO TID 10 Days #30 tab 08/02/18 Rx Allergies/Adverse Reactions: Allergies Allergy/AdvReac Type Severity Reaction Status Date / Time simvastatin [SIMVASTATIN] AdvReac Unknown LEG Verified 08/02/18 15:23 CRAMPING sulfamethoxazole AdvReac Unknown DIARRHEA Verified 08/02/18 15:23 [From BACTRIM] trimethoprim [From BACTRIM] AdvReac Unknown DIARRHEA Verified 08/02/18 15:23 - Problem List Patient Problems: Current Active Problems (Last Updated 08/02/18 @ 15:27 by David Morales DO) Anxiety associated with depression (Acute)
--- NOTE | 2018-09-23 16:07 | MSW.VISIT ---
SEXUAL HEALTH PHYSICIAN Visit note - Data of Consult Primary Care Provider: Ana Lyn MD - Consult Narrative Reason for consult: Counseling for severe anxiety/depression and physical decline. Narrative: Leonela Shirley is a 67 year old female here to continue counseling focus of decreasing anxiety/depression, functional decline and resource coordination. Pt arrived today alert, dressed appropriately and with attention to her hygiene-which is an overall indication of incremental improvement. Her and her spouse report that she has only had a few instances of nausea/vomiting, and her anxiety seems to have improved enough now to where she can tolerate going on more outings for shopping. She has been making an effort to get dressed and start attending to some of her own hygiene needs. She continues to sleep approx. 18-hours per day. In terms of her nutritional deficits, she has not been able to achieve maintaining a steady weight beyond 89 lbs. Discussed what we had established as a goal within the last few sessions, which was for pt to also be aware of her own self-sabotaging of interacting with others/activities. Her spouse reports that she typically wakes up in the morning, and due to high anxiety upon waking, will take a Lorazapam, then go back to sleep for several hours. She needs constant prodding to eat, which this SEXUAL HEALTH PHYSICIAN discouraged. The pattern that is becoming evident suggests that pt continues to act helpless to help herself, and her then does everthing for her, 24-hours a day, 7-days a week. She fights him now with his reminders, which has become counterproductive. Provided suggestions for ways to encourage good sleep hygiene, including talking to her doctor about alternatives to taking Lorazapam throughout the day, taking less naps during the day, and finding ways to engage herself-other than escaping through sleep. SEXUAL HEALTH PHYSICIAN followed up with Dr. Bermudez, who was gracious to allow for scheduling pt an appointment early next month for a medication evaluation. In the meantime, the focus of counseling continues to remain on stabilization and caregiver support. CC: Chey Cabrera, SEXUAL HEALTH PHYSICIAN Patient reports pain?: Yes - Pain Details Pain location: In her back. Pain Scale Used: Numeric (1 - 10) (Pain is rated at a (6)) Pain Frequency: Frequent Pain Description: Aching Pain referral/management: Managed by PCP - Code Status Resuscitation Status: Full Code - Medical, Surgical, Family History Medical History: Medical History (Last Updated 08/25/18 @ 15:22 by Jn Dhillon MD) Upper GI bleed (Resolved) Post surgical complication (Resolved) Acute anxiety (Inactive) Esophageal cancer Vertebral fracture, closed Surgical History: Surgical History (Last Updated 08/25/18 @ 15:21 by Jn Dhillon MD) History of kyphoplasty History of esophageal surgery - Psychological Status Stressors: Interpersonal, Psychosocial, Health Depression-related: Depressed mood: Present, Loss of interest: Absent, Fatigue: Present, Concentration/focus: Absent, Insomnia: Absent, Hypersomnia: Present, Appetite changes: Absent, Feel guilt/worthlesness: Present, Suicidal ideation: Absent, Psychomotor agitation: Absent, Psychomotor retardation: Present - Mental Status Exam Orientation:: Time, Place and Person Appearance:: Well-groomed, Malnourished Speech:: Slow, Soft Movement:: Agitated Mood:: Anxious, Fearful, Apathetic, Hopeless Affect:: Guarded, Tearful, Congruent with mood Thought Process:: Normal Suicide Risk Degree: Low - Assessment/Goals/Plan Assessment: Patient is making slow progress in improving emotional regulation and struggles with continued functional limitations and malnourished. Her spouse is both physically and emotionally exhausted, and is beginning to feel as though he can't face the rest of their life together with her being so debilitated and unable to recover in a substantial way. He is therefore beginning to make plans to take care of himself through potential travel plans and activities outside the home that can help him find some meaning and normalcy in his own life. He remains very supportive and encouraging of her, however it's evident that he is very frustrated. Pt is showing benefits in counseling, and is able to recall things that we have discussed, however she also becomes intermittently confused during our sessions, and at times is unable to track the conversation. They have an appointment with her PCP, Dr. Lyn tomorrow. This SEXUAL HEALTH PHYSICIAN provided some suggestions to talk about with Dr. Lyn re: medications, excessive sleeping, and continued difficulty with getting Leonela to eat. She is not a candidate for a feeding tube, unfortunately, due to the extensive surgeries that she had during her cancer treatment. Goals: 1. Pt will meet with this counselor 1x per week to work on anxiety reduction, emotional regulation, and increase coping skills/stress tolerance. 2. Pt and spouse will continue to work with her primary care physician and package maker re: eating concerns, stress-induced vomiting/nausea, and plan for nutritional rehabilitation. 3. Follow through with the goal of attending their religious mass next . Goal is to establish more contact with her spiritual support community and blow torch operator for support around spiritual pain. Plan: F/u next Friday at 2:30pm for continued counseling and skills building. - Problem List Time Spent with patient: 60-minutes Home Medications: Home Medications Medication Instructions Recorded Confirmed Type montelukast [Singulair] 10 mg PO DAILY #0 07/04/07 08/25/18 History acetaminophen 325 mg PO Q4HP PRN #0 12/03/17 08/19/18 History pantoprazole [Protonix] 40 mg PO DAILY #0 12/03/17 08/25/18 History levetiracetam [Keppra] 750 mg PO BID #60 tab 07/05/18 08/25/18 Rx Calcium 500 + D 1 tab PO QPM 08/18/18 08/19/18 History ondansetron 8 mg PO Q12H PRN 08/18/18 08/25/18 History ondansetron HCl 4 mg PO BID PRN 08/18/18 08/25/18 History sertraline 100 mg PO DAILY 08/18/18 08/25/18 History trazodone 50 mg PO BEDTIME 08/18/18 08/25/18 History clonazepam 0.25 mg TRANSLINGUAL PRN PRN #30 08/22/18 08/19/18 Rx tab MDD 2 hydrocodone-acetaminophen 1 tab PO Q8H PRN #30 tab 08/22/18 08/19/18 Rx lorazepam 1 mg PO BID PRN #30 tab 08/22/18 08/25/18 Rx Allergies/Adverse Reactions: Allergies Allergy/AdvReac Type Severity Reaction Status Date / Time simvastatin [SIMVASTATIN] AdvReac Unknown LEG Verified 08/25/18 14:44 CRAMPING sulfamethoxazole AdvReac Unknown DIARRHEA Verified 08/25/18 14:44 [From BACTRIM] trimethoprim [From BACTRIM] AdvReac Unknown DIARRHEA Verified 08/25/18 14:44 - Problem List Patient Problems: Current Active Problems (Last Updated 08/25/18 @ 15:22 by Jn Dhillon MD) Anxiety associated with depression (Acute)
--- NOTE | 2018-09-28 16:08 | MSW.VISIT ---
GREEN BUILDING ENGINEER Visit note - Data of Consult Primary Care Provider: Ana Lyn MD - Consult Narrative Reason for consult: Counseling in the context of severe anxiety and physical decline. Narrative: Leonela Shirley is a 67 year old female here to continue counseling for severe anxiety, depression, and overall physical decline. She presents today as more disheveled, more tearful, and more cachectic looking than her last visit. Her spouse states that pt is now down to 83-lbs, and has not taken in any food over the last few days except for a few bites of oatmeal. Spouse is expressing feeling emotionally exhausted and hopeless about pt's ability to recover from this. Additionally, he states that she does not seem to benefit as much from the PRN Clonazapam and Ativan that they have been using, and that her anxiety attacks are increasing again. Vomiting is increasing again. Pt has an appointment with the [facility] behavioral health psychiatrist, Dr. Bemrudez on Oct.27, however pt's spouse if feeling a sense of desperation to get her help. When this GREEN BUILDING ENGINEER gently encouraged pt to share her feelings concerning why she is not wanting to eat, and why she is feeling so tearful, her anxiety immediately escalated, and she could only respond repeatedly, I don't know why. I want to get better, but I don't know why. She was able to share that she is incredibly fearful of dying, however all of her actions and behaviors are contributing directly to her declining status and eventual dying. CC: Dr. Ana Lyn Patient reports pain?: Yes - Pain Details Pain location: Pt's pain is primarily in her back. However, she has become so cachectic that she is having a difficult time being comfortable in any position other than lying in bed. Pain Scale Used: Numeric (1 - 10) (Pain is rated at a (6)) Pain Frequency: Frequent Pain Description: Aching Pain referral/management: Managed by PCP - Code Status Resuscitation Status: Full Code - Medical, Surgical, Family History Medical History: Medical History (Last Updated 08/25/18 @ 15:22 by Jn Dhillon MD) Upper GI bleed (Resolved) Post surgical complication (Resolved) Acute anxiety (Inactive) Esophageal cancer Vertebral fracture, closed Surgical History: Surgical History (Last Updated 08/25/18 @ 15:21 by Jn Dhillon MD) History of kyphoplasty History of esophageal surgery - Social History alcohol intake: never substance use type: does not use housing: house household members: spouse service: No current occupational status: retired - Psychological Status Stressors: Interpersonal, Psychosocial, Health Depression-related: Depressed mood: Present, Loss of interest: Present, Fatigue: Present, Concentration/focus: Present, Insomnia: Absent, Hypersomnia: Present, Appetite changes: Present, Feel guilt/worthlesness: Present, Suicidal ideation: Absent, Psychomotor agitation: Present - Mental Status Exam Orientation:: Time, Place and Person Appearance:: Disheveled Speech:: Normal rate/volume/yung Movement:: Agitated Mood:: Depressed, Agitated, Fearful, Sad, Hopeless Affect:: Tearful, Sad Thought Process:: Perseveration Thought Content:: Other Suicide Risk Degree: Low - Assessment/Goals/Plan Assessment: Patient appears to be decompensating from the small amount of progress that she had been making. She is quite disabled at home, and is requiring more assistance with her ADL's from her spouse again. She is vomiting more frequently in conjunction with increasing anxiety attacks. This GREEN BUILDING ENGINEER is focusing on providing support and care coordination for pt's spouse, as it has become increasingly more clear that pt is unable to make any lasting progress or improvement on an outpatient counseling basis. GREEN BUILDING ENGINEER has urged pt's spouse to contact pt's primary care doctor for medical direction and assistance. This GREEN BUILDING ENGINEER will also f/u with contacting pt's Oncologist, Dr. Espinoza at [facility] [place] to obtain some direction and consultation for this patient. Goals: 1. Pt will meet with this counselor 1x per week to work on anxiety reduction, emotional regulation, and increase coping skills/stress tolerance. 2. Pt and spouse will continue to work with her primary care physician and research and evaluation analyst re: eating concerns, stress-induced vomiting/nausea, and plan for nutritional rehabilitation. 3. Follow through with the goal of attending their mormon mass next weekend. Goal is to establish more contact with her spiritual support community and nut picker for support around spiritual pain. Plan: Pt will continue to try and increase her daily nutritional intake, including drinking 2-Boost protein drinks per day. Sleep hygiene: discuss with Dr. Lyn pt's excessive sleeping habits, which now exceed 18+ hours per day. GREEN BUILDING ENGINEER will f/u with Dr. Espinoza, pt's oncologist. GREEN BUILDING ENGINEER will continue to support pt's spouse as we navigate next steps and options for her medical and psychiatric care needs. - Problem List Time Spent with patient: 60-minutes Home Medications: Home Medications Medication Instructions Recorded Confirmed Type montelukast [Singulair] 10 mg PO DAILY #0 07/04/07 08/25/18 History acetaminophen 325 mg PO Q4HP PRN #0 12/03/17 08/19/18 History pantoprazole [Protonix] 40 mg PO DAILY #0 12/03/17 08/25/18 History levetiracetam [Keppra] 750 mg PO BID #60 tab 07/05/18 08/25/18 Rx Calcium 500 + D 1 tab PO QPM 08/18/18 08/19/18 History ondansetron 8 mg PO Q12H PRN 08/18/18 08/25/18 History ondansetron HCl 4 mg PO BID PRN 08/18/18 08/25/18 History sertraline 100 mg PO DAILY 08/18/18 08/25/18 History trazodone 50 mg PO BEDTIME 08/18/18 08/25/18 History clonazepam 0.25 mg TRANSLINGUAL PRN PRN #30 08/22/18 08/19/18 Rx tab MDD 2 hydrocodone-acetaminophen 1 tab PO Q8H PRN #30 tab 08/22/18 08/19/18 Rx lorazepam 1 mg PO BID PRN #30 tab 08/22/18 08/25/18 Rx Allergies/Adverse Reactions: Allergies Allergy/AdvReac Type Severity Reaction Status Date / Time simvastatin [SIMVASTATIN] AdvReac Unknown LEG Verified 08/25/18 14:44 CRAMPING sulfamethoxazole AdvReac Unknown DIARRHEA Verified 08/25/18 14:44 [From BACTRIM] trimethoprim [From BACTRIM] AdvReac Unknown DIARRHEA Verified 08/25/18 14:44 - Problem List Patient Problems: Current Active Problems (Last Updated 08/25/18 @ 15:22 by Jn Dhillon MD) Anxiety associated with depression (Acute)
--- NOTE | 2018-10-23 14:55 | MSW.VISIT ---
EYEWEAR MANUFACTURING TECH Visit note - Data of Consult Primary Care Provider: Ana Lyn MD - Consult Narrative Reason for consult: Counseling in the context of severe anxiety and physical decline. Narrative: Leonela Shirley is a 67 year old female here to continue counseling for severe anxiety, depression, and overall physical decline. She presents today as well-groomed; wearing makeup, hair done, smiling, and initiated conversation with this EYEWEAR MANUFACTURING TECH upon arrival. This is a significant improvement since her last visit with this EYEWEAR MANUFACTURING TECH. Pt's spouse states that pt has been making much more of an effort to take responsibility for her own care needs. She has not gained any weight, however shares that she is trying to remember to eat more snacks throughout the day. She was able to tolerate a full visit today, became tearful several times, however was able to calm herself and focus on much of the conversation throughout her visit. Of note, pt just had her hearing aids fixed, and she was noticeably more interactive as a result. EYEWEAR MANUFACTURING TECH reiterated that people who can't hear what is happening around them tend to withdraw and check-out of personal interactions, due to not hearing or understanding what is being discussed around them. Her spouse states that her hearing loss has been a long-standing issue that has caused a lot of frustration in their relationship. Discussed action steps for emotion regulation and distress tolerance skills-building. Suggested various tools that pt could begin to use to distract herself from times where her emotions take over, such as her ongoing anxiety attacks, as well as fact-checking when she is feeling that nothing is improving for her. EYEWEAR MANUFACTURING TECH also was able to help patient reframe her visit with her oncologist, Dr. Espinoza, as validation that she is not showing any signs of cancer recurrence, and in fact, is not dying from cancer. That had been her greatest fear as expressed in early sessions with this EYEWEAR MANUFACTURING TECH. Discussed plan for continuing to find ways to interact in the world of the living, including going for short walks with her , engaging in social interactions, and continuing to seek support from their new druze. CC: Chey Ritterce-Declan, EYEWEAR MANUFACTURING TECH Patient reports pain?: No - Pain Details Pain Scale Used: Numeric (1 - 10) (Pain is rated at a (6)) Pain Frequency: Frequent Pain Description: Aching Pain referral/management: Managed by PCP - Code Status Resuscitation Status: Full Code - Medical, Surgical, Family History Medical History: Medical History (Last Updated 08/25/18 @ 15:22 by Jn Dhillon MD) Upper GI bleed (Resolved) Post surgical complication (Resolved) Esophageal cancer Vertebral fracture, closed Acute anxiety (Inactive) Surgical History: Surgical History (Last Updated 08/25/18 @ 15:21 by Jn Dhillon MD) History of kyphoplasty History of esophageal surgery - Psychological Status Stressors: Interpersonal, Psychosocial, Health Depression-related: Depressed mood: Absent, Loss of interest: Present, Fatigue: Present, Concentration/focus: Present, Insomnia: Absent, Hypersomnia: Present, Appetite changes: Present, Feel guilt/worthlesness: Present, Suicidal ideation: Absent, Psychomotor agitation: Absent, Psychomotor retardation: Absent - Mental Status Exam Orientation:: Time, Place and Person Appearance:: Well-groomed Speech:: Normal rate/volume/yung Movement:: Calm Mood:: Neutral Affect:: Tearful, Congruent with mood, Anxious Thought Process:: Normal Thought Content:: Normal Suicide Risk Degree: Low - Assessment/Goals/Plan Assessment: Pt is demonstrating some improvement again in her overall functioning-both emotionally and physically. Her states that over the last week pt is showing more interest in taking care of her hygiene, interacting with him, and has been willing to go out in public for short shopping and errand needs. She seemed to genuinely listen to what this EYEWEAR MANUFACTURING TECH was suggesting for her in terms of utilizing skills relating to emotional regulation and distress tolerance, including doing the opposite of what she is inclined to do. Example: Rather than go with the impulse to go back to bed and sleep for several hours during the day, do the opposite action; go outside and breathe fresh air, complete a task around the house that needs attention, go take a shower, etc. Pt will be meeting with Dr. Bermudez in psychiatry at [facility] on 10/27. We discussed the importance of her being honest and sharing a typical day with her-how much she sleeps, the degree of anxiety and tearfulness that she is still experiencing, and the symptoms of PTSD that continue to limit her ability to fully engage in her life as a healthy, functioning adult. Pt is seeming to look forward to this help, and is welcoming the suggestions that come from that appointment. Goals: 1. The original goal was to meet 1x per week, however pt is not tolerating that level of frequency at this time. Will plan to meet again after pt's visit with Dr. Bermudez to re-discuss frequency of visits. Focus remains the same: increase distress tolerance and emotion regulation skills and reactions. Increase coping and communication within interpersonal relationships. 2. Pt and spouse will continue to work with her primary care physician and elevator mechanic apprentice re: eating concerns, stress-induced vomiting/nausea, and plan for nutritional rehabilitation. 3. Follow-up with their new druze to clarify if there is a visiting harness placer/home communion program. Practice being open to trying new events offered through their druze community in order to reduce sense of isolation and spiritual pain. Plan: Pt will continue to make efforts to increase her daily food/nutritional intake, including protein supplements. EYEWEAR MANUFACTURING TECH will f/u with pt and spouse following their appointment with psychiatrist in order to incorporate her recommendations for continued plan of care. - Problem List Time Spent with patient: 60 minutes spent with patient and spouse in counseling. Home Medications: Home Medications Medication Instructions Recorded Confirmed Type montelukast [Singulair] 10 mg PO DAILY #0 07/04/07 10/27/18 History acetaminophen 325 mg PO Q4HP PRN #0 12/03/17 10/27/18 History pantoprazole [Protonix] 40 mg PO DAILY #0 12/03/17 10/27/18 History levetiracetam [Keppra] 750 mg PO BID #60 tab 07/05/18 10/27/18 Rx Calcium 500 + D 1 tab PO QPM 08/18/18 10/27/18 History ondansetron 8 mg PO Q12H PRN 08/18/18 10/27/18 History ondansetron HCl 4 mg PO BID PRN 08/18/18 10/27/18 History sertraline 100 mg PO DAILY 08/18/18 10/27/18 History trazodone 50 mg PO BEDTIME 08/18/18 10/27/18 History clonazepam 0.25 mg TRANSLINGUAL PRN PRN #30 08/22/18 10/27/18 Rx tab MDD 2 hydrocodone-acetaminophen 1 tab PO Q8H PRN #30 tab 08/22/18 10/27/18 Rx lorazepam 1 mg PO BID PRN #30 tab 08/22/18 10/27/18 Rx Allergies/Adverse Reactions: Allergies Allergy/AdvReac Type Severity Reaction Status Date / Time simvastatin [SIMVASTATIN] AdvReac Unknown LEG Verified 08/25/18 14:44 CRAMPING sulfamethoxazole AdvReac Unknown DIARRHEA Verified 08/25/18 14:44 [From BACTRIM] trimethoprim [From BACTRIM] AdvReac Unknown DIARRHEA Verified 08/25/18 14:44
--- NOTE | 2018-11-11 11:33 | MSW.VISIT ---
COMMUNITY MANAGER Visit note - Data of Consult Primary Care Provider: Ana Lyn MD - Consult Narrative Reason for consult: Counseling in the context of anxiety, depression, and functional decline. 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 Patient presents as alert, well-groomed and unusually extremely talkative and energetic. This COMMUNITY MANAGER had considered whether patient was experiencing a hypomanic episode, due to this level of intensity in her communication and interactions is highly outside of her norm. Alternatively, this new improvement and activated behavior is a welcome change for pt, and she expressed feeling like she wasted time when she was so depressed, that she wants to do as much as she can. She's making lists of things that she wants to do, and can't seem to get things done quickly enough. However, since beginning the Mirtazapine, pt states that she is much more hungry, interested in eating, and has actually gone out to dinner with her a few times now, which she never would have tolerated in the past. She also shared many insights that she has had in terms of wanting to engage in life, and how the many stressors that occurred at the same time, and after, her cancer treatment, really impacted her ability to recover. She expresses feeling very hopeful about continuing to improve. COMMUNITY MANAGER offered encouragement, however also helped pt to refocus several times to remember that the coping and distress tolerance skills that we have been talking about take practice, and to allow herself time to continue to process-with the overall theme being to pace herself. She continues to participate in physical therapy, as well as visits to her Orthopedic MD and PCP. CC: Chey Cabrera, COMMUNITY MANAGER Patient reports pain?: Yes - Pain Details Pain location: Pt shared that her chronic back pain still limits her physically, however she feels that she is becoming stronger with physical therapy. Pain Scale Used: Numeric (1 - 10) (Pain is rated at a (6)) Pain Frequency: Frequent Pain Description: Aching Pain referral/management: Managed by PCP - Code Status Resuscitation Status: Full Code - Medical, Surgical, Family History Medical History: Medical History (Last Updated 08/25/18 @ 15:22 by Jn Dhillon MD) Upper GI bleed (Resolved) Post surgical complication (Resolved) Esophageal cancer Vertebral fracture, closed Acute anxiety (Inactive) Surgical History: Surgical History (Last Updated 08/25/18 @ 15:21 by Jn Dhillon MD) History of kyphoplasty History of esophageal surgery - Psychological Status Stressors: Interpersonal, Psychosocial, Health Depression-related: Depressed mood: Absent, Loss of interest: Absent, Fatigue: Absent, Concentration/focus: Absent, Insomnia: Absent, Hypersomnia: Absent, Appetite changes: Present, Feel guilt/worthlesness: Absent, Suicidal ideation: Absent, Psychomotor agitation: Present, Psychomotor retardation: Absent - Mental Status Exam Orientation:: Time, Place and Person Appearance:: Well-groomed Speech:: Pressured Movement:: Hyperactive Mood:: Happy Affect:: Congruent with mood, Animated, Appropriate in interview Thought Process:: Normal Thought Content:: Normal Suicide Risk Degree: Low - Assessment/Goals/Plan Assessment: Patient continues to demonstrate positive benefit from the combination of counseling and psychopharmacotherapy. She is making progress in her efforts to become responsible for her own care and hygiene, preparing her own food, and is awake much of the day, rather than sleeping all day, like she had been previously. Both patient and her spouse express that their relationship is improving, is less tense, and that they are both feeling hopeful about her ability to continue to improve with all of the therapies that she is engaged in. Goals: 1. Continue counseling 1x per week to focus on goals of improved coping, distress tolerance, and remaining engaged in daily activities. 2. Pt and spouse will continue to work with her primary care physician, manager credit, and physical therapist re: nutritional rehabilitation, weight gain, and physical strengthening/pain management. 3. Continue to focus on completing at least 1-activity on her list every day. Pt/spouse will consider going to the new [facility] that they are interested in, in an effort to strengthen their support network, have more opportunities for social interactions, and decrease the spiritual pain that pt has been experiencing over this last year. Plan: Continue counseling 1x per week. - Problem List Time Spent with patient: 60-minutes Home Medications: Home Medications Medication Instructions Recorded Confirmed Type montelukast [Singulair] 10 mg PO DAILY #0 07/04/07 10/27/18 History acetaminophen 325 mg PO Q4HP PRN #0 12/03/17 10/27/18 History pantoprazole [Protonix] 40 mg PO DAILY #0 12/03/17 10/27/18 History levetiracetam [Keppra] 750 mg PO BID #60 tab 07/05/18 10/27/18 Rx Calcium 500 + D 1 tab PO QPM 08/18/18 10/27/18 History ondansetron 8 mg PO Q12H PRN 08/18/18 10/27/18 History ondansetron HCl 4 mg PO BID PRN 08/18/18 10/27/18 History sertraline 100 mg PO DAILY 08/18/18 10/27/18 History hydrocodone-acetaminophen 1 tab PO Q8H PRN #30 tab 08/22/18 10/27/18 Rx lorazepam 1 mg PO BID PRN #30 tab 08/22/18 10/27/18 Rx mirtazapine 15 mg tablet 15 mg PO BEDTIME #30 tab 10/27/18 Rx Allergies/Adverse Reactions: Allergies Allergy/AdvReac Type Severity Reaction Status Date / Time simvastatin [SIMVASTATIN] AdvReac Unknown LEG Verified 08/25/18 14:44 CRAMPING sulfamethoxazole AdvReac Unknown DIARRHEA Verified 08/25/18 14:44 [From BACTRIM] trimethoprim [From BACTRIM] AdvReac Unknown DIARRHEA Verified 08/25/18 14:44
--- NOTE | 2018-11-18 11:24 | MSW.VISIT ---
BROACH GRINDER Visit note - Data of Consult Primary Care Provider: Ana Lyn MD - Consult Narrative Reason for consult: Counseling in the context of anxiety, depression, and functional decline. 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 Pt arrived for visit today appearing well-groomed, alert, and pleasant in mood/affect. Pt was able to share several ways over this last week that she is continuing to be more active and engaged in her daily activities and interpersonal interactions. Examples she provided included: cooking more meals, eating more during her meals, making plans for their new home, reading books, and watching movies-all of which she has not done in nearly a year. Her spouse continues to be very encouraging of her progress, and states that he is learning how to let go of many of the caregiving things he had been doing for her, and trusting in her ability to take on more and more as she continues to feel stronger. BROACH GRINDER offered encouragement in her practicing self-care and pacing herself, as well as her progressive improvement in tolerating stress. Her memory seems to be improving as well, as also validated by spouse's report. She continues to take her medications as directed, is attending weekly physical therapy appointments, and followed up with her psychiatrist just this morning. He did not make any med changes at this time, and plans to meet with her again in one month. CC: Chey Cabrera, BROACH GRINDER Patient reports pain?: No - Pain Details Pain Scale Used: Numeric (1 - 10) (Pain is rated at a (6)) Pain Frequency: Frequent Pain Description: Aching Pain referral/management: Managed by PCP - Code Status Resuscitation Status: Full Code - Medical, Surgical, Family History Medical History: Medical History (Last Updated 08/25/18 @ 15:22 by Jn Dhillon MD) Upper GI bleed (Resolved) Post surgical complication (Resolved) Acute anxiety (Inactive) Esophageal cancer Vertebral fracture, closed Surgical History: Surgical History (Last Updated 08/25/18 @ 15:21 by Jn Dhillon MD) History of kyphoplasty History of esophageal surgery - Social History alcohol intake: never substance use type: does not use housing: house household members: spouse service: No current occupational status: retired - Psychological Status Stressors: Psychosocial, Health Depression-related: Depressed mood: Absent, Loss of interest: Absent, Fatigue: Absent, Concentration/focus: Absent, Insomnia: Absent, Hypersomnia: Absent, Appetite changes: Present (Increased appetite.), Suicidal ideation: Absent, Psychomotor agitation: Absent, Psychomotor retardation: Absent - Mental Status Exam Orientation:: Time, Place and Person Appearance:: Well-groomed Speech:: Normal rate/volume/yung Movement:: Calm Mood:: Happy Affect:: Normal, Congruent with mood Thought Process:: Normal Thought Content:: Normal Suicide Risk Degree: Low - Assessment/Goals/Plan Assessment: Pt continues to demonstrate progressive improvement in overall functioning. Our focus will change starting next week to start meeting alone, without her , as discussed in today's session. Previously, she was unable to tolerate him being out of the room without having an anxiety attack. Now that pt's memory has improved, is more stable emotionally, and is showing signs of physical improvement in functioning, she feels ready to focus on CBT and DBT informed skills development and processing. Goals: 1. Continue counseling 1x per week to focus on goals of improved coping, distress tolerance, and remaining engaged in daily activities. We will begin to address deeper emotional issues that she is now ready to process since showing improvement with the new medications on board. 2. Pt and spouse will continue to work with her primary care physician, mineral ore processing labourer, and physical therapist re: nutritional rehabilitation, weight gain, and physical strengthening/pain management. 3. Continue to focus on completing at least 1-activity on her list every day. Pt/spouse will consider going to the [facility] that they are interested in, and/or explore other opportunities for social interaction and support. - Problem List Time Spent with patient: 60-minutes in direct counseling. Home Medications: Home Medications Medication Instructions Recorded Confirmed Type montelukast [Singulair] 10 mg PO DAILY #0 07/04/07 11/18/18 History acetaminophen 325 mg PO Q4HP PRN #0 12/03/17 11/18/18 History pantoprazole [Protonix] 40 mg PO DAILY #0 12/03/17 11/18/18 History levetiracetam [Keppra] 750 mg PO BID #60 tab 07/05/18 11/18/18 Rx Calcium 500 + D 1 tab PO QPM 08/18/18 11/18/18 History ondansetron 8 mg PO Q12H PRN 08/18/18 11/18/18 History ondansetron HCl 4 mg PO BID PRN 08/18/18 11/18/18 History hydrocodone-acetaminophen 1 tab PO Q8H PRN #30 tab 08/22/18 11/18/18 Rx mirtazapine 15 mg tablet 15 mg PO BEDTIME #30 tab 10/27/18 11/18/18 Rx lorazepam 1 mg tablet 1 mg PO BID PRN #30 tab 11/18/18 Rx sertraline 100 mg tablet 100 mg PO DAILY #30 tab 11/18/18 Rx Allergies/Adverse Reactions: Allergies Allergy/AdvReac Type Severity Reaction Status Date / Time simvastatin [SIMVASTATIN] AdvReac Unknown LEG Verified 08/25/18 14:44 CRAMPING sulfamethoxazole AdvReac Unknown DIARRHEA Verified 08/25/18 14:44 [From BACTRIM] trimethoprim [From BACTRIM] AdvReac Unknown DIARRHEA Verified 08/25/18 14:44 - Problem List Patient Problems: Current Active Problems (Last Updated 08/25/18 @ 15:22 by Jn Dhillon MD) Anxiety associated with depression (Acute)
--- NOTE | 2018-11-25 13:54 | MSW.VISIT ---
BUSINESS MANAGER COLLEGE OR UNIVERSITY Visit note - Data of Consult Primary Care Provider: Ana Lyn MD - Consult Narrative Reason for consult: Counseling in the context of depression/anxiety and functional decline. Narrative: Leonela Shirley is a 68 year old female here to continue counseling for depression/anxiety and PTSD related functional decline over this last year. Pt presents today as even more confident in her ambulation, did not need any assistive devices, and was able to walk back and meet with this BUSINESS MANAGER COLLEGE OR UNIVERSITY without her , which is the first time that this has been possible since beginning counseling treatment. Pt continues to attend weekly physical therapy, and states that is noticing a difference now in her endurance and strength. BUSINESS MANAGER COLLEGE OR UNIVERSITY provided encouragement for her continued progress, as well as validation for her recognition to continue pacing herself. BUSINESS MANAGER COLLEGE OR UNIVERSITY reminded her that she is only in the beginning stages of rehabilitation, and that it's ok to give herself permission to rest when needed. The theme explored in CBT today was her own new awareness that she had felt helpless throughout the period of time when she was most debilitated, following her cancer surgery. We explored this sense of helplessness, which she states that in looking back, was the primary reason behind her withdrawal and lack of engagement in life. In exploring what is the opposite of helplessness for her, she began to have realizations of a new sense of control, autonomy and increasing independence. We explored the concept of strength as it pertains to inner-strength, as well as the lessons learned as a cancer survivor. Patient reports pain?: Yes - Pain Details Pain location: Lower back Pain Scale Used: Numeric (1 - 10) (Pain is rated at a (6)) Pain Frequency: Frequent Pain Description: Aching Pain referral/management: Managed by PCP - Code Status Resuscitation Status: Full Code - Medical, Surgical, Family History Medical History: Medical History (Last Updated 08/25/18 @ 15:22 by Jn Dhillon MD) Upper GI bleed (Resolved) Post surgical complication (Resolved) Acute anxiety (Inactive) Esophageal cancer Vertebral fracture, closed Surgical History: Surgical History (Last Updated 08/25/18 @ 15:21 by Jn Dhillon MD) History of kyphoplasty History of esophageal surgery - Psychological Status Stressors: Interpersonal, Health Depression-related: Depressed mood: Absent, Loss of interest: Absent, Fatigue: Absent, Concentration/focus: Absent, Insomnia: Absent, Hypersomnia: Absent, Appetite changes: Absent, Feel guilt/worthlesness: Absent, Suicidal ideation: Absent, Psychomotor agitation: Absent, Psychomotor retardation: Absent - Mental Status Exam Orientation:: Time, Place and Person Appearance:: Well-groomed Speech:: Normal rate/volume/yung Movement:: Calm Mood:: Happy Affect:: Normal Thought Process:: Normal Thought Content:: Normal - Assessment/Goals/Plan Assessment: Pt continues to demonstrate improvement in overall coping and functioning. She is enjoying time exploring new interests, including making plans for moving into their new home this coming summer. She reports far less tension and more positive interactions between she and her spouse. Pt is also going out on daily outings now with her spouse, and has even gone inside the grocery store by herself and shopped-which she has not been able to do in over a year. Goals: 1. Continue counseling 1X per week to focus on goals of improved coping, distress tolerance, and remaining engaged in daily activities. Continue to utilize CBT skills discussed in counseling. 2. Pt and spouse will continue to work with her primary care physician, vision therapist, and physical therapist re: nutritional rehabilitation, weght gain, and physical strengthening/pain management. 3. Continue to focus on completing at least 1-activity on her list every day. Continue to explore and participate in social activities with her spouse as tolerated. Plan: Continue new focus of exploring deeper, emotional experiences of cancer and the continued effects as it has impacted her life over the last year. - Problem List Time Spent with patient: 60-minutes Home Medications: Home Medications Medication Instructions Recorded Confirmed Type montelukast [Singulair] 10 mg PO DAILY #0 07/04/07 11/18/18 History acetaminophen 325 mg PO Q4HP PRN #0 12/03/17 11/18/18 History pantoprazole [Protonix] 40 mg PO DAILY #0 12/03/17 11/18/18 History levetiracetam [Keppra] 750 mg PO BID #60 tab 07/05/18 11/18/18 Rx Calcium 500 + D 1 tab PO QPM 08/18/18 11/18/18 History ondansetron 8 mg PO Q12H PRN 08/18/18 11/18/18 History ondansetron HCl 4 mg PO BID PRN 08/18/18 11/18/18 History hydrocodone-acetaminophen 1 tab PO Q8H PRN #30 tab 08/22/18 11/18/18 Rx mirtazapine 15 mg tablet 15 mg PO BEDTIME #30 tab 10/27/18 11/18/18 Rx lorazepam 1 mg tablet 1 mg PO BID PRN #30 tab 11/18/18 Rx sertraline 100 mg tablet 100 mg PO DAILY #30 tab 11/18/18 Rx Allergies/Adverse Reactions: Allergies Allergy/AdvReac Type Severity Reaction Status Date / Time simvastatin [SIMVASTATIN] AdvReac Unknown LEG Verified 08/25/18 14:44 CRAMPING sulfamethoxazole AdvReac Unknown DIARRHEA Verified 08/25/18 14:44 [From BACTRIM] trimethoprim [From BACTRIM] AdvReac Unknown DIARRHEA Verified 08/25/18 14:44 - Problem List Patient Problems: Current Active Problems (Last Updated 08/25/18 @ 15:22 by Jn Dhillon MD) Major depressive disorder, recurrent episode, severe (Acute) Anxiety associated with depression (Acute) Post traumatic stress disorder (PTSD) (Acute)
--- NOTE | 2018-12-09 14:55 | MSW.VISIT ---
QUARANTINE OFFICER Visit note - Data of Consult Primary Care Provider: Ana Lyn MD - Consult Narrative Reason for consult: Counseling in the context of depression/anxiety and functional decline. Narrative: Leonela Shirley is a 68 year old female here to continue counseling focused on improvement of anxiety, depression, and coping with distress. Pt continues to progressively improve, demonstrated by a steady period of emotional stability, improved ability to tolerate stress, and increased participation in social activities. Pt has not been able to tolerate social activities or engaging with friends/family for over a year. She shared that she went with a friend to the friend's voodoo last Friday, and participated in a [employer] project for girls in a [place]. She is now organizing her own mediset, making her own food/snacks, and is doing her physical therapy exercises daily, as prescribed by her physical therapist. Focus of today's session was on pacing herself, and understanding the changing role of her as caregiver. He has been expressing some fears that this new level of functioning and stability might not last, and that he feels there are many issues under the surface not being addressed. As he was not part of the last therapy session, this QUARANTINE OFFICER asked how he knew that neither pt nor I were addressing her own concerns? He wasn't able to clarify, other than he felt she had long-held grief deep down that has affected their marriage. In private, Leonela denies that she has deeply held, unprocessed grief, and wondered aloud if what he was talking about was more about him than me. We discussed how caregivers often feel less important as patients take on more of the things that they had previously needed help with. She was able to discuss several examples of this having happened over the course of this last month. He remains hopeful that she will become strong and stable enough to travel again, that he has a bucket list of places that he would like to see. Pt is able to recognize that her progress and rehabilitation will take time, and that it's ok to express that to him. Pt is gaining weight, slowly. She is now up to 93-lbs, and is making sincere attempts to be active, even though she would rather not, at times. She is no longer needing to take a Lorazapam when waking in the morning, in order to cope with the day and her anxiety. She is only taking short naps during the day, and denies having any sleep difficulty at night. CC: Chey Chaney-Declan, QUARANTINE OFFICER Patient reports pain?: No - Pain Details Pain Scale Used: Numeric (1 - 10) (Pain is rated at a (6)) Pain Frequency: Frequent Pain Description: Aching Pain referral/management: Managed by PCP - Code Status Resuscitation Status: Full Code - Medical, Surgical, Family History Medical History: Medical History (Last Updated 08/25/18 @ 15:22 by Jn Dhillon MD) Upper GI bleed (Resolved) Post surgical complication (Resolved) Acute anxiety (Inactive) Esophageal cancer Vertebral fracture, closed Surgical History: Surgical History (Last Updated 08/25/18 @ 15:21 by Jn Dhillon MD) History of kyphoplasty History of esophageal surgery - Psychological Status Level of Distress: 0 Stressors: Interpersonal, Health Depression-related: Depressed mood: Absent, Loss of interest: Absent, Fatigue: Absent, Concentration/focus: Absent, Insomnia: Absent, Hypersomnia: Absent, Appetite changes: Absent, Feel guilt/worthlesness: Absent, Suicidal ideation: Absent, Psychomotor agitation: Absent, Psychomotor retardation: Absent - Mental Status Exam Orientation:: Time, Place and Person Appearance:: Well-groomed Speech:: Normal rate/volume/yung Movement:: Calm Mood:: Happy Affect:: Normal Thought Process:: Normal Thought Content:: Normal Suicide Risk Degree: Low - Assessment/Goals/Plan Assessment: Patient continues to demonstrate signs and behaviors of overall improvement. Our focus remains on emotional/physical stabilization, coping/distress tolerance skills building, and counseling in relation to barriers that she feels impede her continued healing. Goals: 1. Frequency reduction in counseling visits from 1x per week to 1x every other week due to progress and pt's request. Continue to utilize CBT related skills discussed in counseling. 2. Pt and spouse will continue to work with her primary care physician, script worker, and physical therapist re: nutritional rehabilitation, weight gain, and physical strengthening/pain management. 3. Continue to focus on completing at least 1-activity on her list every day. Continue to explore and participate in social activities with her spouse and others, as tolerated. Plan: Continue to explore the impact of deeper emotional experiences both in relation to her cancer, and with long-held issues that she feels continue to effect her life and healing process. Home Medications: Home Medications Medication Instructions Recorded Confirmed Type montelukast [Singulair] 10 mg PO DAILY #0 07/04/07 11/18/18 History acetaminophen 325 mg PO Q4HP PRN #0 12/03/17 11/18/18 History pantoprazole [Protonix] 40 mg PO DAILY #0 12/03/17 11/18/18 History levetiracetam [Keppra] 750 mg PO BID #60 tab 07/05/18 11/18/18 Rx Calcium 500 + D 1 tab PO QPM 08/18/18 11/18/18 History ondansetron 8 mg PO Q12H PRN 08/18/18 11/18/18 History ondansetron HCl 4 mg PO BID PRN 08/18/18 11/18/18 History hydrocodone-acetaminophen 1 tab PO Q8H PRN #30 tab 08/22/18 11/18/18 Rx mirtazapine 15 mg tablet 15 mg PO BEDTIME #30 tab 10/27/18 11/18/18 Rx lorazepam 1 mg tablet 1 mg PO BID PRN #30 tab 11/18/18 Rx sertraline 100 mg tablet 100 mg PO DAILY #30 tab 11/18/18 Rx Allergies/Adverse Reactions: Allergies Allergy/AdvReac Type Severity Reaction Status Date / Time simvastatin [SIMVASTATIN] AdvReac Unknown LEG Verified 08/25/18 14:44 CRAMPING sulfamethoxazole AdvReac Unknown DIARRHEA Verified 08/25/18 14:44 [From BACTRIM] trimethoprim [From BACTRIM] AdvReac Unknown DIARRHEA Verified 08/25/18 14:44 - Problem List Patient Problems: Current Active Problems (Last Updated 08/25/18 @ 15:22 by Jn Dhillon MD) Major depressive disorder, recurrent episode, severe (Acute) Anxiety associated with depression (Acute) Post traumatic stress disorder (PTSD) (Acute)
--- NOTE | 2018-12-24 10:59 | MSW.VISIT ---
BARK GRINDER Visit note - Data of Consult Primary Care Provider: Ana Lyn MD - Consult Narrative Reason for consult: Counseling in the context of anxiety and overall functional decline. Narrative: Leonela Shirley is a 68 year old female here to continue counseling for anxiety and overall functional decline. She presents today as well groomed, smiling, alert and ambulating without any assistive devices. Pt's met together with the BARK GRINDER for the beginning of the session, during which he was able to report that pt continues to make steady progress in improving both emotionally and physically. They have increased the number of activities that she participates in with him each day, including going out to restaurants, spending time with family, and even attended faith together last weekend. Pt states that it's becoming easier with each passing day to increase her activity level. She is utilizing the suggestions from counseling in terms of pacing herself. Nutritionally, pt has gained 2-lbs, and has more insight into what foods tend to feel stuck in her esophagus while eating, and that it is helping her to remain in an upright position for a period of time after eating in order to allow for better digestion. She is finding herself craving more types of food, and no longer experiences the adverse reaction of nausea/vomiting when thinking about eating. She has also begun to explore some hobbies, which she hasn't done for some years now. Spouse states that pt asked him to help her purchase some knitting supplies, and she is now reading several books per month. Spouse shared that even though he has continued fears that pt will relapse back to her deteriorated state, he is trying to trust that this improvement will be long lasting. He also shared I don't think that I could live through that again if it does happen again. Spouse will need continued support, reassurance and reinforcement as pt continues to heal and recover as well. Patient reports pain?: No - Pain Details Pain Scale Used: Numeric (1 - 10) (Pain is rated at a (6)) Pain Frequency: Frequent Pain Description: Aching Pain referral/management: Managed by PCP - Code Status Resuscitation Status: Full Code - Medical, Surgical, Family History Medical History: Medical History (Updated 11/26/18 @ 13:53 by Chey Cabrera MSW) Upper GI bleed (Resolved) Post surgical complication (Resolved) Esophageal cancer Vertebral fracture, closed Acute anxiety (Inactive) Surgical History: Surgical History (Updated 08/25/18 @ 15:21 by Jn Dhillon MD) History of kyphoplasty History of esophageal surgery - Social History Smoking Status: Unknown if ever smoked alcohol intake: never substance use type: does not use housing: house household members: spouse service: No current occupational status: retired education level: high school - Psychological Status Stressors: Interpersonal, Psychosocial, Health Depression-related: Depressed mood: Absent, Loss of interest: Absent, Fatigue: Absent, Concentration/focus: Absent, Insomnia: Absent, Hypersomnia: Absent, Appetite changes: Absent, Feel guilt/worthlesness: Absent, Suicidal ideation: Absent, Psychomotor agitation: Absent, Psychomotor retardation: Absent - Mental Status Exam Orientation:: Time, Place and Person Appearance:: Well-groomed Speech:: Normal rate/volume/yung Movement:: Calm Mood:: Happy, Congruent Affect:: Normal, Animated Thought Process:: Normal Thought Content:: Normal Suicide Risk Degree: Low - Assessment/Goals/Plan Assessment: Pt continues to demonstrate progressive, overall improvement in mood, coping, stress tolerance, and interpersonally. She presents today as well groomed, no need for assistive devices for mobility, and was clearly much stronger and more steady in the way she was able to get up out of the chair and walk independently back to the counseling room. Pt's spouse met with both pt and BARK GRINDER initially. He shared that pt is much more independent at home, is now cooking more meals, and has been going out with him on multiple outings everyday. Previously, pt was unable to tolerate going out to a restaurant, due to fears of vomiting and being socially overstimulated. Now, she was able to share that she has come to enjoy going out to eat more, and has learned some ways to pace herself when eating so that she doesn't get the overwhelming sense of food being stuck in her esophagus. Additionally, she proudly shared that she is now up to 95-lbs. Her posture has significantly improved. Pt has continued to attend weekly physical therapy visits, and states that she has been able to keep up with the recommended home exercises on most days. We discussed how she has been able to utilize the CBT skills of recognizing thoughts that she has in relation to her feelings and reactions, and that this has helped her to also have more insight into her communication dynamics in her marital relationship. Goals: 1. Frequency reduction in counseling visits from 1x per week to 1x every other week due to progress and pt's request. Continue to utilize CBT related skills discussed in counseling. 2. Pt and spouse will continue to work with her primary care physician, jewel hole gauger, and physical therapist re: nutritional rehabilitation, weight gain, and physical strengthening/pain management. 3. Continue to focus on completing at least 1-activity on her list every day. Continue to explore and participate in social activities with her spouse and others, as tolerated. Plan: Continue to focus on stress tolerance, coping skills and nutritional rehabilitation. - Problem List Time Spent with patient: 60-minutes spent in direct counseling with pt. Home Medications: Home Medications Medication Instructions Recorded Confirmed Type montelukast [Singulair] 10 mg PO DAILY #0 07/04/07 11/18/18 History acetaminophen 325 mg PO Q4HP PRN #0 12/03/17 11/18/18 History pantoprazole [Protonix] 40 mg PO DAILY #0 12/03/17 11/18/18 History levetiracetam [Keppra] 750 mg PO BID #60 tab 07/05/18 11/18/18 Rx Calcium 500 + D 1 tab PO QPM 08/18/18 11/18/18 History ondansetron 8 mg PO Q12H PRN 08/18/18 11/18/18 History ondansetron HCl 4 mg PO BID PRN 08/18/18 11/18/18 History hydrocodone-acetaminophen 1 tab PO Q8H PRN #30 tab 08/22/18 11/18/18 Rx mirtazapine 15 mg tablet 15 mg PO BEDTIME #30 tab 10/27/18 11/18/18 Rx lorazepam 1 mg tablet 1 mg PO BID PRN #30 tab 11/18/18 Rx sertraline 100 mg tablet 100 mg PO DAILY #30 tab 11/18/18 Rx Allergies/Adverse Reactions: Allergies Allergy/AdvReac Type Severity Reaction Status Date / Time simvastatin [SIMVASTATIN] AdvReac Unknown LEG Verified 08/25/18 14:44 CRAMPING sulfamethoxazole AdvReac Unknown DIARRHEA Verified 08/25/18 14:44 [From BACTRIM] trimethoprim [From BACTRIM] AdvReac Unknown DIARRHEA Verified 08/25/18 14:44
--- NOTE | 2019-01-07 14:32 | MSW.VISIT ---
CISTERN ROOM WORKING SUPERVISOR Visit note - Data of Consult Primary Care Provider: Ana Lyn MD - Consult Narrative Reason for consult: Counseling in the context of anxiety, depression and health improvement. Narrative: Leonela Shirley is a 68 year old female here to continue counseling for anxiety, depression and overall decline in physical functioning.She continues to demonstrate stability in terms of emotional well-being and distress tolerance. She presents as alert, well-groomed, and actively participates in conversation with this CISTERN ROOM WORKING SUPERVISOR. Nutritionally, pt is eating small meals throughout the day, and has increased her weight to 96-lbs. She shares several insights that she has had in terms of how checked-out she had been for the last year, and states that she doesn't remember most of what happened when she at her most debilitated. Maritally, pt shared that her is seeming more and more reassured that this stability is going to be her new normal, and she helps to reinforce this by taking on more tasks in the home, going on daily outings and shopping trips together, and has now taken over all of her own care needs and care coordination tasks with her medical appointments. She is nearing the end of physical therapy, and has clearly become much stronger, demonstrated by an upright posture, improved balance and increased endurance. Focus of counseling session today was on normalizing concerns she had about needing to take medications for anxiety/depression tank terminal gauger, continuing to stay active and engaged with spouse, family and new anglican community, and begin to add daily walks outside to her routine. Provided encouragement and validated the continued successes of pt's efforts to recover, while at the same time remembering to pace herself and take breaks when needed. CC: PHU Hernandez Patient reports pain?: No - Pain Details Pain Scale Used: Numeric (1 - 10) (Pain is rated at a (6)) Pain Frequency: Frequent Pain Description: Aching Pain referral/management: Managed by PCP - Medical, Surgical, Family History Medical History: Medical History (Updated 11/26/18 @ 13:53 by PHU Hernandez) Upper GI bleed (Resolved) Post surgical complication (Resolved) Esophageal cancer Vertebral fracture, closed Acute anxiety (Inactive) Surgical History: Surgical History (Updated 08/25/18 @ 15:21 by Jn Dhillon MD) History of kyphoplasty History of esophageal surgery - Psychological Status Level of Distress: 0 Stressors: Psychosocial, Health Depression-related: Depressed mood: Absent, Loss of interest: Absent, Fatigue: Absent, Concentration/focus: Absent, Insomnia: Absent, Hypersomnia: Absent, Appetite changes: Absent, Feel guilt/worthlesness: Absent, Suicidal ideation: Absent, Psychomotor agitation: Absent, Psychomotor retardation: Absent - Mental Status Exam Orientation:: Time, Place and Person Appearance:: Well-groomed Speech:: Normal rate/volume/yung Movement:: Calm Mood:: Happy Affect:: Congruent with mood Thought Process:: Normal Thought Content:: Normal - Assessment/Goals/Plan Assessment: Pt is improving in distress tolerance, physical functioning and is no longer demonstrating signs/symptoms of anxiety and depression. She continues to benefit from counseling for processing past trauma in relation to her cancer experience, as well as CBT techniques to process moving forward with more confidence in her ability to recover from last year of mental/physical debilitation. Goals: Goals: 1. Frequency reduction in counseling visits from 1x per week to 1x every other week due to progress and pt's request. Continue to utilize CBT related skills discussed in counseling. 2. Pt and spouse will continue to work with her primary care physician, call center support consultant, and physical therapist re: nutritional rehabilitation, weight gain, and physical strengthening/pain management. 3. Continue to focus on completing at least 1-activity on her list every day. Continue to explore and participate in social activities with her spouse and others, as tolerated. Plan: Continue counseling focus for improving stress tolerance, process past trauma, and improve physical functioning with CBT therapy/behavior activation. - Problem List Time Spent with patient: 60-minutes Home Medications: Home Medications Medication Instructions Recorded Confirmed Type montelukast [Singulair] 10 mg PO DAILY #0 07/04/07 11/18/18 History acetaminophen 325 mg PO Q4HP PRN #0 12/03/17 11/18/18 History pantoprazole [Protonix] 40 mg PO DAILY #0 12/03/17 11/18/18 History levetiracetam [Keppra] 750 mg PO BID #60 tab 07/05/18 11/18/18 Rx Calcium 500 + D 1 tab PO QPM 08/18/18 11/18/18 History ondansetron 8 mg PO Q12H PRN 11/27/18 02/27/19 History ondansetron HCl 4 mg PO BID PRN 08/18/18 11/18/18 History hydrocodone-acetaminophen 1 tab PO Q8H PRN #30 tab 08/22/18 11/18/18 Rx mirtazapine 15 mg tablet 15 mg PO BEDTIME #30 tab 10/27/18 11/18/18 Rx lorazepam 1 mg tablet 1 mg PO BID PRN #30 tab 11/18/18 Rx sertraline 100 mg tablet 100 mg PO DAILY #30 tab 11/18/18 Rx Allergies/Adverse Reactions: Allergies Allergy/AdvReac Type Severity Reaction Status Date / Time simvastatin [SIMVASTATIN] AdvReac Unknown LEG Verified 08/25/18 14:44 CRAMPING sulfamethoxazole AdvReac Unknown DIARRHEA Verified 08/25/18 14:44 [From BACTRIM] trimethoprim [From BACTRIM] AdvReac Unknown DIARRHEA Verified 08/25/18 14:44
--- NOTE | 2019-01-25 14:54 | MSW.VISIT ---
TERRAZZO HELPER Visit note - Data of Consult Primary Care Provider: Ana Lyn MD - Consult Narrative Reason for consult: Counseling in the context of anxiety/trauma/decreased functional status. Narrative: Leonela Shirley is a 68 year old female here to continue counseling for anxiety, past medically-related trauma, and improvement of stress tolerance related skills. Pt returns today appearing alert, well-groomed, and much more confident in her posture and mobility. She no longer requires the need for any assistive device, including her 's assistance. She states that she and her will soon depart on a month long trip, which would have not been something that she would have even considered 6-months ago. She is meeting with the psychiatrist prior to leaving in order to ensure she has enough medications to last the trip. She shared that she feels somewhat anxious about this, however her has planned several stops along the way for them to enjoy, and she feels that she has reached a point where she can tolerate being away from home without having a severe anxiety response. Additionally, she has completed her physical therapy course, and now feels stronger, has less back pain, and has helped her to feel less weak and fatigued. Socially, she and her have been attending their new [employer] regularly, and are beginning to feel a sense of belonging/community connection. Pt's aunt over this last week, which had been a fear of her 's that the impending would be a trigger for pt to relapse back to her previous state of severe anxiety/vomiting/depression. Pt was able to reflect on this, and shared that she surprised herself with how this didn't cause such an intense grief reaction as the last in the family, her cousin Tristan. She was able to feel sad, but not overcome by the sadness, and also was able to feel relief that her aunt had had a long and happy life, and actually peacefully in her sleep. She relates that medications that she is on, as well as ongoing counseling, as reasons for the improvement in her distress tolerance and acceptance of this loss. TERRAZZO HELPER encouraged the sharing of how she is doing in the relationship dynamics with her . She feels that she is so much more present now, and that she also understands the difference now between her husbands issues and her own, and not taking on all things that he feels distressed about as relating to her. CC: PHU Hernandez - Pain Details Pain Scale Used: Numeric (1 - 10) (Pain is rated at a (6)) Pain Frequency: Frequent Pain Description: Aching Pain referral/management: Managed by PCP - Medical, Surgical, Family History Medical History: Medical History (Updated 11/26/18 @ 13:53 by PHU Hernandez) Upper GI bleed (Resolved) Post surgical complication (Resolved) Esophageal cancer Vertebral fracture, closed Acute anxiety (Inactive) Surgical History: Surgical History (Updated 08/25/18 @ 15:21 by Jn Dhillon MD) History of kyphoplasty History of esophageal surgery - Psychological Status Level of Distress: 0 Stressors: Psychosocial, Health Depression-related: Depressed mood: Absent, Loss of interest: Absent, Fatigue: Absent, Concentration/focus: Absent, Insomnia: Absent, Hypersomnia: Absent, Appetite changes: Absent, Feel guilt/worthlesness: Absent, Suicidal ideation: Absent, Psychomotor agitation: Absent, Psychomotor retardation: Absent - Mental Status Exam Orientation:: Time, Place and Person Appearance:: Well-groomed Speech:: Normal rate/volume/yung Movement:: Calm Mood:: Happy, Congruent Affect:: Normal, Congruent with mood Thought Process:: Normal Thought Content:: Normal Suicide Risk Degree: Low - Assessment/Goals/Plan Assessment: Pt continues to demonstrate progressive improvement in coping, behavior activation, reduction in anxiety and depression. She will be on a month-long road trip, after which she will be f/u with this TERRAZZO HELPER for support. If pt continues to remain stable, we will plan to discontinue counseling at that time. Goals: Goals: 1. Frequency reduction in counseling visits from 1x per week to 1x every other week due to progress and pt's request. Will plan to d/c counseling after pt's trip, should she continue to remain stable at that time. Continue to utilize CBT related skills discussed in counseling. 2. Pt and spouse will continue to work with her primary care physician, power plant operator, and physical therapist re: nutritional rehabilitation, weight gain, and physical strengthening/pain management. 3. Continue to focus on completing at least 1-activity on her list every day. Continue to explore and participate in social activities with her spouse and others, as tolerated. Continue counseling focus for improving stress tolerance, process past trauma, and improve physical functioning with CBT therapy/behavior activation. Plan: F/u visit with pt in 1-month following her vacation. Home Medications: Home Medications Medication Instructions Recorded Confirmed Type montelukast [Singulair] 10 mg PO DAILY #0 07/04/07 11/18/18 History acetaminophen 325 mg PO Q4HP PRN #0 12/03/17 11/18/18 History pantoprazole [Protonix] 40 mg PO DAILY #0 12/03/17 11/18/18 History levetiracetam [Keppra] 750 mg PO BID #60 tab 07/05/18 11/18/18 Rx Calcium 500 + D 1 tab PO QPM 08/18/18 11/18/18 History ondansetron 8 mg PO Q12H PRN 08/18/18 11/18/18 History ondansetron HCl 4 mg PO BID PRN 08/18/18 11/18/18 History hydrocodone-acetaminophen 1 tab PO Q8H PRN #30 tab 08/22/18 11/18/18 Rx mirtazapine 15 mg tablet 15 mg PO BEDTIME #30 tab 10/27/18 11/18/18 Rx lorazepam 1 mg tablet 1 mg PO BID PRN #30 tab 11/18/18 Rx sertraline 100 mg tablet 100 mg PO DAILY #30 tab 11/18/18 Rx Allergies/Adverse Reactions: Allergies Allergy/AdvReac Type Severity Reaction Status Date / Time simvastatin [SIMVASTATIN] AdvReac Unknown LEG Verified 08/25/18 14:44 CRAMPING sulfamethoxazole AdvReac Unknown DIARRHEA Verified 08/25/18 14:44 [From BACTRIM] trimethoprim [From BACTRIM] AdvReac Unknown DIARRHEA Verified 08/25/18 14:44
--- NOTE | 2019-07-26 15:13 | MSW.VISIT ---
BISTRO ATTENDANT Visit note - Data of Consult Primary Care Provider: Ana Lyn MD - Consult Narrative Reason for consult: Counseling with ongoing cancer survivorship adjustment and concerns. Narrative: Leonela Shirley is a 68 year old female CC: Chey Chaney-Declan, BISTRO ATTENDANT - Pain Details Pain Scale Used: Numeric (1 - 10) (Pain is rated at a (6)) Pain Frequency: Frequent Pain Description: Aching Pain referral/management: Managed by PCP - Medical, Surgical, Family History Medical History: Medical History (Last Updated 08/25/18 @ 15:22 by Jn Dhillon MD) Acute anxiety Esophageal cancer Post surgical complication Upper GI bleed Vertebral fracture, closed Surgical History: Surgical History (Last Updated 08/25/18 @ 15:21 by Jn Dhillon MD) History of esophageal surgery History of kyphoplasty Home Medications: Home Medications Medication Instructions Recorded Confirmed Type montelukast [Singulair] 10 mg PO DAILY #0 07/04/07 07/14/19 History acetaminophen 325 mg PO Q4HP PRN #0 12/03/17 07/14/19 History pantoprazole [Protonix] 40 mg PO DAILY #0 12/03/17 07/14/19 History levetiracetam [Keppra] 750 mg PO BID #60 tab 07/05/18 07/14/19 Rx Calcium 500 + D 1 tab PO QPM 08/18/18 07/14/19 History ondansetron 8 mg PO Q12H PRN 08/18/18 07/14/19 History lorazepam 1 mg tablet 1 mg PO BID PRN #30 tab 11/18/18 07/14/19 Rx mirtazapine 15 mg tablet 15 mg PO BEDTIME #90 tab 03/30/19 07/14/19 Rx sertraline 100 mg tablet 100 mg PO DAILY #90 tab 03/30/19 07/14/19 Rx Allergies/Adverse Reactions: Allergies Allergy/AdvReac Type Severity Reaction Status Date / Time simvastatin [SIMVASTATIN] AdvReac Unknown LEG Verified 07/14/19 13:38 CRAMPING sulfamethoxazole AdvReac Unknown DIARRHEA Verified 07/14/19 13:38 [From BACTRIM] trimethoprim [From BACTRIM] AdvReac Unknown DIARRHEA Verified 07/14/19 13:38 - Problem List Patient Problems: Current Active Problems (Last Updated 08/25/18 @ 15:22 by Jn Dhillon MD) Major depressive disorder, recurrent episode, severe (Acute) Anxiety associated with depression (Acute) Post traumatic stress disorder (PTSD) (Acute)
== END ==
PROVIDERS: PCP Internal Medicine; Referring Provider Internal Medicine; Visit Provider Social Worker Clinical
DX: F41.9 Anxiety disorder, unspecified (principal)
CPT/HCPCS: 90832; 90837; 99213

== ENCOUNTER → 2020-12-01 13:44 | Outpatient (CLI) | payer MEDICARE, OTHER, SELFPAY ==
[2018-08-25 09:41] VITALS: BMI 14.6
[2020-12-01] MEDS: COVID-19 VACC, Ad26(JANSSEN)/PF 0.5 ML IM (13:52)
== END ==
PROVIDERS: PCP Internal Medicine; Visit Provider Internal Medicine
DX: Z23 Encounter for immunization (principal)
CPT/HCPCS: 0031A; 91303

== ENCOUNTER → 2021-04-20 07:43 | Outpatient (CLI) | payer MEDICARE, OTHER, SELFPAY ==
[2018-08-25 09:41] VITALS: BMI 14.6
[2021-04-20 09:00] LABS: Alanine Aminotransferase 21 IU/L (<35); Albumin 3.9 g/dL (3.5-5.0); Albumin Globulin Ratio 1.1 (1.0-2.8); Alkaline Phosphatase 107 U/L (38-126); Aspartate Aminotransferase 32 IU/L (14-36); BUN Creatinine Ratio 36.5 (6-22); Bilirubin Total 0.4 mg/dL (0.2-1.3); Blood Urea Nitrogen 27 mg/dL (7-17); Calcium 9.3 mg/dL (8.4-10.2); Carbon Dioxide 30 mmol/L (22-32); Chloride 107 mmol/L (98-107); Cholesterol 277 mg/dL (140-199); Estimated Glomerular Filt Rate > 60.0 mL/min (>60); Globulin 3.7 g/dL (1.7-4.1); Glucose 111 mg/dL (80-110); HDL Cholesterol 63 mg/dL (40-60); HEMOLYSIS < 15 (0-50); LDL Cholesterol Calculated 183 mg/dL (<100); Potassium 3.6 mmol/L (3.4-5.1); Sodium 143 mmol/L (137-145); Total Protein 7.6 g/dL (6.3-8.2); Triglycerides 153 mg/dL (35-150)
== END ==
PROVIDERS: PCP Internal Medicine; Referring Provider Internal Medicine; Visit Provider Internal Medicine
DX: M81.0 Age-related osteoporosis without current pathological fracture (principal); E78.5 Hyperlipidemia, unspecified
CPT/HCPCS: 36415; 80053; 80061

== ENCOUNTER → 2021-08-23 13:06 | Outpatient (CLI) | payer MEDICARE, OTHER, SELFPAY ==
[2018-08-25 09:41] VITALS: BMI 14.6
[2021-08-23 13:59] LABS: COVID19 -Nasal RAPID Negative (Negative)
== END ==
PROVIDERS: PCP Internal Medicine; Visit Provider Physician Assistant
DX: Z20.822 Contact with and (suspected) exposure to COVID-19 (principal)
CPT/HCPCS: 87635

== ENCOUNTER → 2022-04-16 11:00 | Outpatient (CLI) | payer MEDICARE, OTHER, SELFPAY ==
[2018-08-25 09:41] VITALS: BMI 14.6
== END ==
PROVIDERS: PCP Internal Medicine; Referring Provider Internal Medicine; Visit Provider Internal Medicine
DX: Z13.820 Encounter for screening for osteoporosis (principal); M81.0 Age-related osteoporosis without current pathological fracture; Z78.0 Asymptomatic menopausal state; Z90.710 Acquired absence of both cervix and uterus
CPT/HCPCS: 77080

== ENCOUNTER → 2023-05-14 10:25 | Outpatient (CLI) | payer MEDICARE, OTHER, SELFPAY ==
[2018-08-25 09:41] VITALS: BMI 14.6
[2023-05-14 10:56] LABS: Hematocrit 37.7 % (36-46); Hemoglobin 12.6 g/dL (12.0-16.0); Mean Corpuscular HGB Conc 33.3 % (30-36); Mean Corpuscular Hemoglobin 30.9 PG (26-34); Mean Corpuscular Volume 92.8 fL (80-100); Platelet Count 310 X10^3/uL (150-400); Red Blood Cell Count 4.07 X10^6/uL (4.0-5.2); Red Cell Distribution Width 13.7 % (11.6-14.8); White Blood Cell Count 6.8 X10^3/uL (4.5-11.0)
[2023-05-14 11:10] LABS: Appearance Urine UA SL CLOUDY; Bilirubin Urine UA NEGATIVE (NEGATIVE); Color Urine UA YELLOW; Glucose Urine UA NEGATIVE (Negative); Ketones Urine UA NEGATIVE (NEGATIVE); Leukocyte Esterase Urine UA 1+ (NEGATIVE); Nitrite Urine UA NEGATIVE (Negative); Occult Blood Urine UA NEGATIVE (Negative); Protein Urine UA NEGATIVE (Negative); Specific Gravity Urine UA 1.025 (1.000-1.035); Urobilinogen Urine UA 0.2 E.U./dL (0.2)
[2023-05-14 11:21] LABS: Alanine Aminotransferase 40 IU/L (<35); Albumin 4.2 g/dL (3.5-5.0); Albumin Globulin Ratio 1.1 (1.0-2.8); Alkaline Phosphatase 136 U/L (38-126); Aspartate Aminotransferase 44 IU/L (14-36); BUN Creatinine Ratio 27.8 (6-22); Bilirubin Total 0.5 mg/dL (0.2-1.3); Blood Urea Nitrogen 20 mg/dL (7-17); Calcium 9.4 mg/dL (8.4-10.2); Carbon Dioxide 29 mmol/L (22-32); Chloride 104 mmol/L (98-107); Cholesterol 255 mg/dL (140-199); Estimated Glomerular Filt Rate > 60 mL/min (>60); Globulin 3.8 g/dL (1.7-4.1); Glucose 103 mg/dL (80-110); HDL Cholesterol 72 mg/dL (40-60); HEMOLYSIS < 15 (0-50); LDL Cholesterol Calculated 156 mg/dL (<100); Potassium 3.9 mmol/L (3.4-5.1); Sodium 141 mmol/L (137-145); Triglycerides 135 mg/dL (35-150)
[2023-05-14 11:40] LABS: Bacteria Urine Many (>30); Culture Indicated Urine Specimen Cultured; RBC Urine None Seen (0-5/HPF); Squamous Epithelial Cell Urine 5-10 /HPF (0-5/HPF); WBC Urine 10-30/HPF (0-5/HPF)
[2023-05-14 11:44] LABS: TSH w/ Reflex to FT4 3.32 uIU/mL (0.47-4.68)
[2023-05-15 08:39] LABS: Varicella IgG Antibody 3584 index (Immune >165)
== END ==
PROVIDERS: PCP Internal Medicine; Referring Provider Internal Medicine; Visit Provider Internal Medicine
DX: E78.2 Mixed hyperlipidemia (principal); I10 Essential (primary) hypertension; Z20.9 Contact with and (suspected) exposure to unspecified communicable disease; R32 Unspecified urinary incontinence
CPT/HCPCS: 36415; 80053; 80061; 81003; 81015; 84443; 85027; 86787; 87086

== ENCOUNTER → 2023-06-04 11:25 | Outpatient (CLI) | payer MEDICARE, OTHER, SELFPAY ==
[2018-08-25 09:41] VITALS: BMI 14.6
--- NOTE | 2023-06-04 | DI.MG.S_ITS ---
BILATERAL DIGITAL SCREENING MAMMOGRAM 3D/2D WITH CAD: 06/04/2023 CLINICAL: Routine screening. Default Baseline exam. Comparison is made to exams dated: 09/08/2013 mammogram and 08/03/2008 mammogram - [facility]. Both breasts are heterogeneously dense, which may obscure small masses (category c / 51-75% glandular tissue). Current study was also evaluated with a Computer Aided Detection (CAD) system. No significant masses, calcifications, or other findings are seen in either breast. There has been no significant interval change. IMPRESSION: NEGATIVE There is no mammographic evidence of malignancy. A 1 year screening mammogram is recommended. Based on the Tyrer Cuzick model (a risk assessment model) the patient's lifetime risk is 7.9% and her 10 year risk is 5.5%. According to the ACR, ACS, and NCCN guidelines, an annual breast MRI exam along with mammogram is recommended if the patient's lifetime risk is 20% or greater. This exam was interpreted at Station ID: [id number]. NOTE: For mammograms, a report in lay terms will be sent to the patient. Approximately 15% of breast malignancies will not be visualized mammographically. In the management of a palpable breast mass, a negative mammogram must not discourage biopsy of a clinically suspicious lesion. Electronically Signed By: Sriram ochoa/aamir:06/04/2023 17:30:15 letter sent: Normal Exam ACR BI-RADS Category 1: Negative [id number]
== END ==
PROVIDERS: PCP Internal Medicine; Referring Provider Internal Medicine; Visit Provider Internal Medicine
DX: Z12.31 Encounter for screening mammogram for malignant neoplasm of breast (principal)
CPT/HCPCS: 77063; 77067

== ENCOUNTER 2023-06-27 13:42 | Day surgery (SDC) | payer MEDICARE, OTHER, SELFPAY ==
[2018-08-25 09:41] VITALS: BMI 14.6
--- NOTE | 2023-06-27 | PATH_ITS ---
[facility] Accession Number: [id number] No. of containers..05 Tissue . 01 Material submitted: . PART A: colon - DESCENDING COLON POLYP PART B: colon - HEPATIC FLEXURE POLYP PART C: colon - DISTAL ASCENDING POLYP PART D: colon - CECAL POLYPS X3 PART E: colon - ASCENDING COLON POLYP X3 . 01 Diagnosis: A. Descending Colon, Polyp: Tubular adenoma. . B. Hepatic Flexure, Polyp: Tubular adenoma. . C. Distal Ascending Colon, Polyp: Tubular adenoma. . D. Cecum, Polyp x3: Multiple fragments of tubular adenoma. . E. Ascending Colon, Polyp x3: Tubular adenomas. [facility] 07/02/2023 1119 Local . 01 Electronically signed: . Orin Gutierrez MD, Pathologist NPI- [id number] . 01 Gross description: . Part A: DESCENDING COLON POLYP: Received in formalin is 2 fragment(s) of hurtado, soft tissue measuring 0.1 x 0.1 x 0.1 cm to 0.3 x 0.2 x 0.2 cm submitted entirely in 1 cassette(s) Part B: HEPATIC FLEXURE POLYP: Received in formalin is 1 fragment(s) of hurtado, soft tissue measuring 0.7 x 0.6 x 0.4 cm submitted entirely in 1 cassette(s) Part C: DISTAL ASCENDING POLYP: Received in formalin is 1 fragment(s) of hurtado, soft tissue measuring 0.7 x 0.5 x 0.3 cm submitted entirely in 1 cassette(s) Part D: CECAL POLYPS X3: Received in formalin are multiple fragment(s) of hurtado, soft tissue measuring 0.1 x 0.1 x 0.1 cm to 0.6 x 0.6 x 0.6 cm submitted entirely in 1 cassette(s) Part E: ASCENDING COLON POLYP X3: Received in formalin are multiple fragment(s) of hurtado, soft tissue measuring 0.3 x 0.2 x 0.2 cm to 0.8 x 0.6 x 0.4 cm submitted entirely in 1 cassette(s) /KONG 06/30/2023 1956 Local . 01 Pathologist provided ICD-10: D12.4, D12.3, D12.2, D12.0 . 01 CPT . 606595, 705307, 167672, [id number], [id number] Specimen Comment: A courtesy copy of this report has been sent to [phone] Performed at: 01 [facility] [address] [place] [address], [place], [place] [id number] MD Jorge L Lofton MD Phone: [phone]
[2023-06-27] MEDS: LACTATED RINGERS 1,000 ML 150 ML IV (13:54)
[2023-06-27 14:03] VITALS: BP 126/86; PULSE 98; RESP 20; TEMP 36.2; O2SAT 98; BMI 21.5
--- NOTE | 2023-06-27 15:04 | P.HP_ITS ---
History of Present Illness History of Present Illness Date Patient Seen: 06/27/23 Time Patient Seen: 15:04 [place] [facility] [place]: history of colon polyps, did Cologuard last year has not had a colonoscopy is many years. No current symptoms [facility] Medical History History of colonic polyps Urinary incontinence Allergic rhinitis Asthma, mild intermittent Depression, major, recurrent Generalized anxiety disorder Age-related osteoporosis without current pathological fracture Seizure disorder History of esophageal cancer GERD without esophagitis Mixed hyperlipidemia Essential hypertension History of chemotherapy (~2016) Migraines Osteopenia (~2016) Fractures (~2014) Chronic back pain (~2016) Measles Hearing loss (~2016) Partial blindness (~1951) Painful menstrual periods (~1969) Irregular menstrual cycle (~1969) Abnormal Pap smear of cervix (~1971) Gastric ulcer (~2016) Esophageal ring (~2016) Anxiety disorder due to general medical condition Vertebral fracture, closed Esophageal cancer Acute anxiety Upper GI bleed (~2016) Surgical History Anesthesia History of tubal ligation (~1981) History of hysterectomy (~1983) History of endoscopy History of kyphoplasty History of esophageal surgery (~2017) Family History Father Kidney failure Mother Congestive heart failure Diabetes mellitus Hypertension Stroke Atrial fibrillation Brother Diabetes mellitus Hypertension Atrial fibrillation Grandfather Diabetes mellitus Grandmother Diabetes mellitus Hypertension Grandmother Diabetes mellitus History of pacemaker Social History details: (Adilson), 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 aerospace/piano household members: spouse housing: house education level: high school Smoking Status: Former smoker alcohol intake: never substance use type: does not use Meds Home Medications and Allergies Home Medications Medication Instructions Recorded Confirmed Type acetaminophen 325 mg tablet 325 mg PO Q4HP PRN Abdominal 12/03/17 06/27/23 History Discomfort ##0 Calcium 500 + D 1 tab PO QPM 08/18/18 05/14/23 History levetiracetam 250 mg tablet 250 mg PO BID #180 tabs 05/14/23 06/27/23 Rx mirtazapine 15 mg tablet 7.5 mg (1/2 x 15 mg) PO BEDTIME 05/14/23 06/27/23 Rx #45 tabs montelukast 10 mg tablet 10 mg PO DAILY #90 tabs 05/14/23 06/27/23 Rx (Singulair) pantoprazole 40 mg tablet,delayed 40 mg PO DAILY #90 tabs 05/14/23 06/27/23 Rx release (Protonix) Allergies Allergy/AdvReac Type Severity Reaction Status Date / Time simvastatin [SIMVASTATIN] AdvReac Unknown LEG Verified 06/27/23 14:00 CRAMPING sulfamethoxazole AdvReac Unknown DIARRHEA Verified 06/27/23 14:00 [From BACTRIM] trimethoprim [From BACTRIM] AdvReac Unknown DIARRHEA Verified 06/27/23 14:00 Review of Systems Review of Systems ROS: Yes All systems reviewed with the patient and are negative except as otherwise documented Exam Vital Signs (past 8 hours): - 06/27/23 14:03 Temperature 97.1 F L Pulse Rate 98 H Respiratory Rate 20 Blood Pressure 126/86 Pulse Oximetry 98 Oxygen Delivery Method Room Air Oxygen Delivery Method Room Air Const General: cooperative and comfortable Nutritional Appearance: thin HENMT Head: normocephalic and atraumatic Eyes Sclera: sclerae normal Neck Neck: trachea midline Resp Effort & Inspection: normal respiratory effort and able to speak in complete sentences Cardio Rate: tachycardic Rhythm: regular rhythm GI Palpation: soft Skin General: atrophy Neuro General: patient alert, patient awake and patient oriented x3 Cognition: normal cognition Psych Mental Status: mental status grossly normal Judgment: judgment good Assessment & Plan Assessment & Plan narrative: History of colon polyps Plan: Colonoscopy with anesthesia Time Spent With Patient Time with patient: less than 30 minutes
--- NOTE | 2023-06-27 15:54 | PM.OP.COLON ---
Operative Date/Time/Diagnoses Date of procedure: 06/27/23 Time of procedure: 15:55 Pre-op diagnosis: History of colon polyps Post-op diagnosis: same Procedure & Clinicians Study performed: Colonoscopy using anesthesia, multiple cold snare polypectomies Same procedure as scheduled: Yes Indications: History of colon polyps Surgeon: Brenna Hamilton Procedure Notes Procedure in detail: Preop diagnosis: History of colon polyps Postop diagnosis: Same Operative procedure: Colonoscopy under anesthesia with multiple cold snare polypectomies Surgeon: Elizabeth Hamilton MD Findings: 3 sessile polyps in the cecum measuring 0.4 to 0.8 cm in sizes 3 ascending colon polyps taken with cold snare, sessile with size range between 0.4 and 0.9 cm Single distal ascending colon polyp, .4 cm Single hepatic flexure polyp 0.5 cm Single descending colon polyp, 0.4 cm Severe sigmoid diverticulosis moderate and large sizes Procedure: Patient placed in a lateral position. Rectal exam performed showing normal tone no masses. Colonoscope inserted into the rectum and advanced to ileocecal valve with some difficulty given the rigidness of the sigmoid colon related to her diverticular disease. Insufflation extraction scope and the above findings. Retroflex was completed in the rectum. Impression: Total of 9 colon polyps size range 0.4 cm to 0.9 cm. Severe sigmoid diverticulosis Plan: Repeat colonoscopy in 3 years Findings: divertiulosis and polyp(s) Specimen(s): other (See findings and the dictation above) Complications: none Post-procedure Recommendations: Colonoscopy in 3 years Follow up: as needed Disposition: PACU
[2023-06-27 15:55] VITALS: BP 123/73; PULSE 96; RESP 14; TEMP 36.1; O2SAT 96
[2023-06-27 16:00] VITALS: BP 127/79; PULSE 105; RESP 14; O2SAT 97
[2023-06-27 16:06] VITALS: BP 138/91; PULSE 97; RESP 16; O2SAT 97
[2023-06-27 16:14] VITALS: BP 158/93; PULSE 99; RESP 14; O2SAT 97
[2023-06-27 16:20] VITALS: BP 159/97; PULSE 94; RESP 16; O2SAT 98
== END 2023-06-27 16:40 | disposition home or self-care (01) ==
PROVIDERS: PCP Internal Medicine; Referring Provider Surgery; Visit Provider Surgery
PROC: 0DJD8ZZ Inspection of Lower Intestinal Tract, Via Natural or Artificial Opening Endoscopic (ICD-10-PCS; CPT 45378; principal; 2023-06-27 15:00)
DX: Z12.11 Encounter for screening for malignant neoplasm of colon (principal); Z86.010 Personal history of colon polyps; K57.30 Diverticulosis of large intestine without perforation or abscess without bleeding; D12.4 Benign neoplasm of descending colon; D12.3 Benign neoplasm of transverse colon; D12.2 Benign neoplasm of ascending colon; D12.0 Benign neoplasm of cecum
CPT/HCPCS: 45385; J2704

== ENCOUNTER → 2023-09-02 16:45 | Outpatient (CLI) | payer MEDICARE, OTHER, SELFPAY ==
[2018-08-25 09:41] VITALS: BMI 14.6
[2023-09-02 17:45] LABS: Influenza A - CEPHEID Flu A NEGATIVE (NEGATIVE); Influenza B - CEPHEID Flu B NEGATIVE (NEGATIVE); Respiratory Syncytial Virus Negative (Negative)
[2023-09-02 17:59] LABS: COVID-19 CEPHEID 4-PLEX PCR Negative (Negative)
== END ==
PROVIDERS: PCP Internal Medicine; Visit Provider Physician Assistant
DX: R05.1 Acute cough (principal)
CPT/HCPCS: 0241U

== ENCOUNTER 2023-09-29 10:29 | Emergency (ER) | payer MEDICARE, OTHER, SELFPAY ==
[2018-08-25 09:41] VITALS: BMI 14.6
[2023-09-29] VITALS (21 sets, daily range): BP systolic 122–164; BP diastolic 78–102; PULSE 76–92; RESP 14–27; TEMP 36.3; O2SAT 94–98; BMI 21.7
--- NOTE | 2023-09-29 10:49 | DI.CT.S_ITS ---
PROCEDURE: CT ABDOMEN PELVIS W CON INDICATIONS: jaundice TECHNIQUE: After the administration of intravenous contrast, axial sections acquired from the lung bases to the pubic symphysis. Coronal and sagittal reformats were performed. For radiation dose reduction, the following was used: automated exposure control, adjustment of mA and/or kV according to patient size. COMPARISON: [facility], CT, CT ABDOMEN PELVIS W CON, 08/18/2018, 17:04. FINDINGS: Image quality: Diagnostic. Lower Chest: No significant findings. ABDOMEN: Liver: No solid mass. Gallbladder: Gallbladder is contracted. No biliary ductal dilatation. Biliary ducts: No biliary dilation. Pancreas: No ductal dilation. Spleen: Size is within normal limits. Adrenal Glands: No adrenal nodules. Kidneys and Ureters: No hydronephrosis. No solid mass. No complex renal cystic lesion which requires follow up. Stomach and Bowel: Large hiatal hernia. Normal colonic caliber. Appendix is normal. Diverticulosis of the descending and sigmoid colon. Thickening of the distal sigmoid colon. Peritoneum: Small amount of free fluid in the pelvis. No free air. Ventral Wall: No hernia. Abdominal Nodes: No retroperitoneal or mesenteric adenopathy by size criteria. Vessels: Aorta and inferior vena cava are normal in size. PELVIS: Pelvic Organs: Unremarkable. Bladder: Unremarkable. Pelvic Nodes: No enlarged lymph nodes. Miscellaneous: No inguinal hernias are seen. Bones: There is increased, severe wedging of T11 which appears subacute or chronic. Bony cement injection at T12 is present, as before with moderate chronic wedging of T12. IMPRESSION: 1. Colonic thickening, consistent with ischemia, infection, or inflammation. Follow-up colonoscopy is recommended to exclude underlying neoplasm. 2. Normal appendix. 3. Large hiatal hernia. 4. Subacute versus chronic T11 compression fracture as above. 5. Small amount of free fluid within the pelvis Dictated by: Rowan Thakkar M.D. on 09/29/2023 at 12:33 Approved by: Rowan Thakkar M.D. on 09/29/2023 at 12:36
[2023-09-29 11:07] LABS: Hematocrit 36.9 % (36-46); Hemoglobin 12.2 g/dL (12.0-16.0); Mean Corpuscular HGB Conc 33.1 % (30-36); Mean Corpuscular Hemoglobin 30.6 PG (26-34); Mean Corpuscular Volume 92.5 fL (80-100); Platelet Count 306 X10^3/uL (150-400); Red Blood Cell Count 3.99 X10^6/uL (4.0-5.2); Red Cell Distribution Width 14.1 % (11.6-14.8); White Blood Cell Count 4.7 X10^3/uL (4.5-11.0)
[2023-09-29 11:09] LABS: Add Manual Diff / Slide Review YES
[2023-09-29 11:16] LABS: Acetaminophen < 10 ug/mL (10-30); Alanine Aminotransferase 522 IU/L (<35); Albumin 3.9 g/dL (3.5-5.0); Albumin Globulin Ratio 0.7 (1.0-2.8); Alkaline Phosphatase 943 U/L (38-126); BUN Creatinine Ratio 27.4 (6-22); Bilirubin Conjugated 6.3 md/dL (0.0-0.3); Bilirubin Total 12.4 mg/dL (0.2-1.3); Bilirubin Unconjugated 1.6 mg/dL (0.0-1.1); Blood Urea Nitrogen 17 mg/dL (7-17); Calcium 9.3 mg/dL (8.4-10.2); Carbon Dioxide 24 mmol/L (22-32); Chloride 104 mmol/L (98-107); Estimated Glomerular Filt Rate > 60 mL/min (>60); Globulin 5.3 g/dL (1.7-4.1); Glucose 109 mg/dL (80-110); Lipase 179 U/L (23-300); Potassium 3.7 mmol/L (3.4-5.1); Sodium 140 mmol/L (137-145); Total Protein 9.2 g/dL (6.3-8.2)
[2023-09-29 11:24] LABS: Aspartate Aminotransferase 711 IU/L (14-36)
[2023-09-29 11:25] LABS: HEMOLYSIS 94 (0-50)
[2023-09-29 11:36] LABS: Neutrophils Absolute Manual 2491 /uL (3000-5900); Total Cells Counted 100
[2023-09-29 11:38] LABS: RBC Morphology Normal Morphology
--- NOTE | 2023-09-29 12:40 | ED_ITS ---
HPI - Recheck/Abnormal Lab/Rx General Chief Complaint: Recheck/Abnormal Lab/Rx Stated Complaint: sent by [facility], pt is yellow Time Seen by Provider: 09/29/23 12:18 Source: patient Mode of arrival: Ambulatory History of Present Illness HPI narrative: This is a 72-year-old female with a history of esophageal cancer and seizure disorder who is referred by primary care for jaundice. She reports she has been feeling ill for greater than a month, it started with a upper respiratory infection. She was seen at a walk-in clinic and treated with Augmentin for sinusitis. She has had no other recent medication changes, does not use acetaminophen to excess and is not use alcohol excessively. She has never had jaundice previously. She has not had any definite fevers although she does feel hot and cold at times has not had chills or night sweats. He has not having abdominal pain, she has baseline vomiting after esophageal surgery. No injection drug use or other hepatitis exposures that she is aware of. Related Data Home Medications Medication Instructions Recorded Confirmed acetaminophen 325 mg tablet 325 mg PO Q4HP PRN Abdominal 12/03/17 09/02/23 Discomfort ##0 Calcium 500 + D 1 tab PO QPM 08/18/18 09/02/23 Previous Rx's Medication Instructions Recorded levetiracetam 250 mg tablet 250 mg PO BID #180 tabs 05/14/23 mirtazapine 15 mg tablet 7.5 mg (1/2 x 15 mg) PO BEDTIME 05/14/23 #45 tabs montelukast 10 mg tablet 10 mg PO DAILY #90 tabs 05/14/23 (Singulair) pantoprazole 40 mg tablet,delayed 40 mg PO DAILY #90 tabs 05/14/23 release (Protonix) methocarbamol 500 mg tablet 500 mg PO TID #30 tabs 08/05/23 rosuvastatin 10 mg tablet 10 mg PO DAILY #90 tabs 08/05/23 Allergies Allergy/AdvReac Type Severity Reaction Status Date / Time simvastatin [SIMVASTATIN] AdvReac Unknown LEG Verified 09/29/23 10:41 CRAMPING sulfamethoxazole AdvReac Unknown DIARRHEA Verified 09/29/23 10:41 [From BACTRIM] trimethoprim [From BACTRIM] AdvReac Unknown DIARRHEA Verified 09/29/23 10:41 Patient History Medical History History of colonic polyps Urinary incontinence Allergic rhinitis Asthma, mild intermittent Depression, major, recurrent Generalized anxiety disorder Age-related osteoporosis without current pathological fracture Seizure disorder History of esophageal cancer GERD without esophagitis Mixed hyperlipidemia Essential hypertension History of chemotherapy (~2016) Migraines Osteopenia (~2016) Fractures (~2014) Chronic back pain (~2016) Measles Hearing loss (~2016) Partial blindness (~1951) Painful menstrual periods (~1969) Irregular menstrual cycle (~1969) Abnormal Pap smear of cervix (~1971) Gastric ulcer (~2016) Esophageal ring (~2016) Anxiety disorder due to general medical condition Vertebral fracture, closed Esophageal cancer Acute anxiety Upper GI bleed (~2016) Surgical History Anesthesia History of tubal ligation (~1981) History of hysterectomy (~1983) History of endoscopy History of kyphoplasty History of esophageal surgery (~2017) Family History Father Kidney failure Mother Congestive heart failure Diabetes mellitus Hypertension Stroke Atrial fibrillation Brother Diabetes mellitus Hypertension Atrial fibrillation Grandfather Diabetes mellitus Grandmother Diabetes mellitus Hypertension Grandmother Diabetes mellitus History of pacemaker Social History details: (Adilson), 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 aerospace/piano household members: spouse housing: house education level: high school Smoking Status: Former smoker alcohol intake: never substance use type: does not use Smoking Status: Former smoker alcohol intake frequency: holidays/special occasions only Substance Use Type: does not use Exam Initial Vital Signs Initial Vital Signs: Vital Signs Temperature 97.3 F L 09/29/23 10:41 Pulse Rate 88 09/29/23 10:41 Respiratory Rate 14 09/29/23 10:41 Blood Pressure 152/84 H 09/29/23 10:41 Pulse Oximetry 97 09/29/23 10:41 Oxygen Delivery Method Room Air 09/29/23 10:41 Const General: No acute distress and other (Jaundice with scleral icterus) Neck Neck: supple Resp Effort & Inspection: normal respiratory effort Auscultation: clear to auscultation bilaterally Cardio Other: Regular rhythm rate no murmur rub or gallop GI Other: Abdomen is flat. Bowel sounds are normal. No definite focal tenderness no guarding no rebound Neuro Other: Alert and oriented Course Orders Ordered: ED Orders 09/29/23 10:49 CT abdomen pelvis w con Stat 09/29/23 10:50 Acetaminophen Stat Complete Blood Count AUTO DIFF Stat Comprehensive Metabolic Panel Stat Hepatic (Liver) Panel Stat Lipase Stat PT [Prothrombin Time INR] Stat 09/29/23 12:57 MRCP [MR abdomen wo/w con] Stat 09/29/23 13:30 Hepatitis Acute Panel Stat Reevaluation(s) Reevaluation #1: Case is discussed with her primary care provider Dr. Eric Lee MD. we will get an MRCP today. Unless there are findings on that there require immediate intervention, she will follow up with Dr. Lee Reevaluation #2: D/W Shae Palumbo NP, accepts transfer to [facility] Vital Signs Vital signs: Vital Signs - 8 hr 09/29/23 11:52 09/29/23 11:52 09/29/23 12:06 Pulse Rate 87 84 Respiratory Rate 21 Blood Pressure 141/87 H Pulse Oximetry 96 98 09/29/23 12:06 09/29/23 12:30 09/29/23 12:30 Pulse Rate 82 Respiratory Rate 27 H Blood Pressure 164/102 H 161/95 H Pulse Oximetry 97 09/29/23 13:00 09/29/23 13:30 09/29/23 13:31 Pulse Rate 81 80 Respiratory Rate 25 H Blood Pressure 141/83 H Pulse Oximetry 97 96 09/29/23 13:31 09/29/23 14:56 09/29/23 14:56 Pulse Rate 78 92 H Respiratory Rate 26 H Blood Pressure 123/80 Pulse Oximetry 97 94 09/29/23 15:00 09/29/23 15:00 09/29/23 15:30 Pulse Rate 85 78 Respiratory Rate Blood Pressure 122/85 Pulse Oximetry 95 95 09/29/23 15:30 09/29/23 16:00 09/29/23 16:00 Pulse Rate 91 H Respiratory Rate Blood Pressure 157/92 H 150/92 H Pulse Oximetry 96 09/29/23 16:30 09/29/23 16:30 09/29/23 17:00 Pulse Rate 85 Respiratory Rate Blood Pressure 144/91 H 157/91 H Pulse Oximetry 96 09/29/23 17:00 09/29/23 17:30 09/29/23 17:30 Pulse Rate 83 81 Respiratory Rate Blood Pressure 141/85 H Pulse Oximetry 96 96 09/29/23 18:00 09/29/23 18:00 09/29/23 18:30 Pulse Rate 83 Respiratory Rate Blood Pressure 126/80 145/84 H Pulse Oximetry 95 09/29/23 18:30 09/29/23 19:00 09/29/23 19:00 Pulse Rate 76 80 Respiratory Rate Blood Pressure 131/85 Pulse Oximetry 95 95 MDM - Recheck/Abnormal Lab/Rx Lab Data Lab results narrative: CBC with diff is unremarkable. CMP is remarkable for a bilirubin over 12 with elevations in alkaline phosphatase AST and ALT lipase is normal. INR is 2.3. 09/29/23 10:50 09/29/23 10:50 Labs: Lab Results 09/29/23 Range/Units 10:50 WBC 4.7 (4.5-11.0) X10^3/uL RBC 3.99 L (4.0-5.2) X10^6/uL Hgb 12.2 (12.0-16.0) g/dL Hct 36.9 (36-46) % MCV 92.5 (80-100) fL MCH 30.6 (26-34) PG MCHC 33.1 (30-36) % RDW 14.1 (11.6-14.8) % Plt Count 306 (150-400) X10^3/uL Neut % (Auto) Not Reportable Lymph % (Auto) Not Reportable Mckean % (Auto) Not Reportable Eos % (Auto) Not Reportable Baso % (Auto) Not Reportable Lymph # (Auto) Not Reportable Mckean # (Auto) Not Reportable Baso # (Auto) Not Reportable Total Counted 100 Seg Neutrophils % 51.0 (38-70) % Band Neutrophils % 2.0 L (3-7) % Lymphocytes % (Manual) 29.0 (25-45) % Monocytes % (Manual) 6.0 (2-11) % Eosinophils % (Manual) 9.0 H (2-4) % Basophils % (Manual) 3.0 H (0-1) % Neutrophils # (Manual) 2491 L (2441-2564) /uL RBC Morphology Normal morphology PT 27.2 H (9.4-12.5) SECONDS INR 2.3 H (0.9-1.3) Sodium 140 (137-145) mmol/L Potassium 3.7 (3.4-5.1) mmol/L Chloride 104 (98-107) mmol/L Carbon Dioxide 24 (22-32) mmol/L BUN 17 (7-17) mg/dL Creatinine 0.62 (0.52-1.04) mg/dL Estimated GFR > 60 (>60) mL/min BUN/Creatinine Ratio 27.4 H (6-22) Glucose 109 (80-110) mg/dL Calcium 9.3 (8.4-10.2) mg/dL Total Bilirubin 12.4 H (0.2-1.3) mg/dL Conjugated Bilirubin 6.3 H (0.0-0.3) md/dL Unconjugated Bilirubin 1.6 H (0.0-1.1) mg/dL AST 711 H (14-36) IU/L ALT 522 H (<35) IU/L Alkaline Phosphatase 943 H (38-126) U/L Total Protein 9.2 H (6.3-8.2) g/dL Albumin 3.9 (3.5-5.0) g/dL Globulin 5.3 H (1.7-4.1) g/dL Albumin/Globulin Ratio 0.7 L (1.0-2.8) Lipase 179 (23-300) U/L Acetaminophen < 10 (10-30) ug/mL Imaging Data CT scan - abdomen/pelvis: Radiologist's Impression: PROCEDURE: CT ABDOMEN PELVIS W CON INDICATIONS: jaundice TECHNIQUE: After the administration of intravenous contrast, axial sections acquired from the lung bases to the pubic symphysis. Coronal and sagittal reformats were performed. For radiation dose reduction, the following was used: automated exposure control, adjustment of mA and/or kV according to patient size. COMPARISON: [facility], CT, CT ABDOMEN PELVIS W CON, 08/18/2018, 17:04. FINDINGS: Image quality: Diagnostic. Lower Chest: No significant findings. ABDOMEN: Liver: No solid mass. Gallbladder: Gallbladder is contracted. No biliary ductal dilatation. Biliary ducts: No biliary dilation. Pancreas: No ductal dilation. Spleen: Size is within normal limits. Adrenal Glands: No adrenal nodules. Kidneys and Ureters: No hydronephrosis. No solid mass. No complex renal cystic lesion which requires follow up. Stomach and Bowel: Large hiatal hernia. Normal colonic caliber. Appendix is normal. Diverticulosis of the descending and sigmoid colon. Thickening of the distal sigmoid colon. Peritoneum: Small amount of free fluid in the pelvis. No free air. Ventral Wall: No hernia. Abdominal Nodes: No retroperitoneal or mesenteric adenopathy by size criteria. Vessels: Aorta and inferior vena cava are normal in size. PELVIS: Pelvic Organs: Unremarkable. Bladder: Unremarkable. Pelvic Nodes: No enlarged lymph nodes. Miscellaneous: No inguinal hernias are seen. Bones: There is increased, severe wedging of T11 which appears subacute or chronic. Bony cement injection at T12 is present, as before with moderate chronic wedging of T12. IMPRESSION: 1. Colonic thickening, consistent with ischemia, infection, or inflammation. Follow-up colonoscopy is recommended to exclude underlying neoplasm. 2. Normal appendix. 3. Large hiatal hernia. 4. Subacute versus chronic T11 compression fracture as above. 5. Small amount of free fluid within the pelvis Dictated by: Rowan Thakkar M.D. on 09/29/2023 at 12:33 Approved by: Rowan Thakkar M.D. on 09/29/2023 at 12:36 MRCP: Radiologist's Impression: [address] [address] Magnetic Resonance Report Signed Patient: Leonela Shirley MR#: [id number] : 1950 Acct:[id number] Age/Sex: 72 / F Date of Service: 09/29/23 Loc: ED Accession Number: [id number] Procedure: MR abdomen wo/w con Ordering Provider: Akil Callahan MD PROCEDURE: MR ABDOMEN WO/W CON INDICATIONS: jaundice TECHNIQUE: Coronal HASTE, axial 2D FLASH in- and [id number]; axial breath-hold T2 FSE. Dynamic axial VIBE during the administration of contrast; post-contrast coronal VIBE or 2D FLASH with fat saturation from the hepatic dome to the iliac crests. Optional diffusion weighted imaging and ADC may be performed. COMPARISON: [facility], CT, CT ABDOMEN PELVIS W CON, 09/29/2023, 11:58. FINDINGS: Image quality: Degraded by motion artifact. Lung bases: Unremarkable. Liver: No solid mass. Gallbladder: Contracted Biliary ducts: No biliary dilation. There is a possible 5 mm diameter calculus within the distal common bile duct. Pancreas: No ductal dilation. Spleen: Size is within normal limits. Adrenal Glands: No adrenal nodules. Kidneys and Ureters: No hydronephrosis. No solid mass. No complex renal cystic lesion which requires follow up. Stomach and Bowel: Moderate hiatal hernia. Normal colonic caliber, without significant wall thickening. Peritoneum: No abnormal intraperitoneal fluid. No free air. Ventral Wall: No hernia. Abdominal Nodes: No retroperitoneal or mesenteric adenopathy by size criteria. Vessels: Aorta and inferior vena cava are normal in size. Bones: No aggressive osseous abnormality. IMPRESSION: 1. Possible distal common bile duct calculus. Initial further assessment with ERCP is recommended. 2. Hiatal hernia. Dictated by: Rowan Thakkar M.D. on 09/29/2023 at 15:09 Approved by: Rowan Thakkar M.D. on 09/29/2023 at 15:[address] [facility] Narrative Medical decision making narrative: 72-year-old female presenting with painless jaundice. Does not have symptoms of acute hepatitis, does not use alcohol excessively and has not been taking acetaminophen overdose. MRCP shows a calculus in the distal common bile duct. She has not febrile, I do not think that she has ascending cholangitis. Is noted to be coagulopathic, the patient is not taking anticoagulation. She will be transferred to [facility] in [place] for ERCP. I have ordered vitamin K for the coagulopathy Discharge Plan Departure Patient Disposition: [facility] Clinical Impression: Biliary calculi, common bile duct, Jaundice Prescriptions: No Action acetaminophen 325 MG tablet 325 mg PO Q4HP PRN (Reason: Abdominal Discomfort) Qty: 0 levetiracetam 250 mg tablet 250 mg PO BID Qty: 180 3RF montelukast [Singulair] 10 mg tablet 10 mg PO DAILY Qty: 90 3RF pantoprazole [Protonix] 40 mg tablet,delayed release (DR/EC) 40 mg PO DAILY Qty: 90 3RF mirtazapine 15 mg tablet 7.5 mg PO BEDTIME Qty: 45 3RF rosuvastatin 10 mg tablet 10 mg PO DAILY Qty: 90 3RF methocarbamol 500 mg tablet 500 mg PO TID Qty: 30 1RF Rx Instructions: 1-2 tablets three times daily as needed for spasms/pain Calcium 500 + D 2,000 mg 1 tab PO QPM Referrals: Eric Lee MD [Primary Care Provider] -
[2023-09-29 12:52] LABS: INR 2.3 (0.9-1.3); Prothrombin Time 27.2 SECONDS (9.4-12.5)
--- NOTE | 2023-09-29 12:57 | DI.MRI.S_ITS ---
PROCEDURE: MR ABDOMEN WO/W CON INDICATIONS: jaundice TECHNIQUE: Coronal HASTE, axial 2D FLASH in- and [id number]; axial breath-hold T2 FSE. Dynamic axial VIBE during the administration of contrast; post-contrast coronal VIBE or 2D FLASH with fat saturation from the hepatic dome to the iliac crests. Optional diffusion weighted imaging and ADC may be performed. COMPARISON: [facility], CT, CT ABDOMEN PELVIS W CON, 09/29/2023, 11:58. FINDINGS: Image quality: Degraded by motion artifact. Lung bases: Unremarkable. Liver: No solid mass. Gallbladder: Contracted Biliary ducts: No biliary dilation. There is a possible 5 mm diameter calculus within the distal common bile duct. Pancreas: No ductal dilation. Spleen: Size is within normal limits. Adrenal Glands: No adrenal nodules. Kidneys and Ureters: No hydronephrosis. No solid mass. No complex renal cystic lesion which requires follow up. Stomach and Bowel: Moderate hiatal hernia. Normal colonic caliber, without significant wall thickening. Peritoneum: No abnormal intraperitoneal fluid. No free air. Ventral Wall: No hernia. Abdominal Nodes: No retroperitoneal or mesenteric adenopathy by size criteria. Vessels: Aorta and inferior vena cava are normal in size. Bones: No aggressive osseous abnormality. IMPRESSION: 1. Possible distal common bile duct calculus. Initial further assessment with ERCP is recommended. 2. Hiatal hernia. Dictated by: Rowan Thakkar M.D. on 09/29/2023 at 15:09 Approved by: Rowan Thakkar M.D. on 09/29/2023 at 15:19
--- NOTE | 2023-09-29 17:48 | PC.NURSE ---
Addendum entered by Dolores Palumbo CNA 09/29/23 18:33: 1823 [facility] transfer center (Elina) called [facility] and spoke with this OPERATOR SPECIALIST COMMUNICATIONS. Elina informed me, that the pt. does have a bed available at [facility] and are waiting on the room to be cleaned and number for RN report. Transfer center at [facility] will call after 1900 and notify [place] [facility] TERRITORY SALES CONSULTANT when they are able to set up transport for pt. Addendum entered by Dolores Palumbo CNA 09/29/23 18:06: 1804 [facility] hospitalist spoke with marlyn Callahan and accepted pt., waiting on transfer center at [facility] to call with bed availability. Original Note: OPERATOR SPECIALIST COMMUNICATIONS note: This hole filler contacted [facility] and spoke with Sangeeta [facility] and spoke with Ritu Antoine/Rafael and spoke with Светлана Richardson and spoke with Jeane. [facility] and [facility] stated they are boarding, added pt. to waitlist. Ritu and Светлана Brorego also waitlisted pt. [facility] is at capacity for pt. facesheet, ed doc summary were faxed to each facility listed above and images pushed as well. 1750 [facility] contacted [facility] and GI doc Teddy consulted with marlyn Callahan [facility] hospitalist will call back to speak with provider.
[2023-09-29] MEDS: PHYTONADIONE (VIT K1) 5 MG in SODIUM CHLORIDE 0.9% 100 ML 201 MG IV (20:00)
--- NOTE | 2023-09-29 20:56 | PC.NURSE ---
Report given to SÁNCHEZ Ragsdale [phone] [facility] in [facility].
[2023-09-30 08:36] LABS: HBsAg Screen Negative (Negative); Hepatitis A Antibody IgM Negative (Negative); Hepatitis B Core Antibody IgM Negative (Negative); Hepatitis C Antibody Non Reactive (Non Reactive)
== END 2023-09-29 21:02 | disposition short-term general hospital (02) ==
PROVIDERS: Emergency Provider Emergency Medicine; PCP Internal Medicine
DX: K80.50 Calculus of bile duct without cholangitis or cholecystitis without obstruction (principal); R17 Unspecified jaundice
CPT/HCPCS: 36415; 74177; 74183; 80053; 80074; 80076; 80329; 83690; 85007; 85025; 85610; 96365; 99284; G0480; J3430; Q9967

== ENCOUNTER → 2023-10-17 10:57 | Outpatient (CLI) | payer MEDICARE, OTHER, SELFPAY ==
[2023-10-09 11:20] VITALS: BMI 14.6
[2023-10-17 12:44] LABS: Alanine Aminotransferase 217 IU/L (<35); Albumin 3.8 g/dL (3.5-5.0); Albumin Globulin Ratio 0.8 (1.0-2.8); Alkaline Phosphatase 477 U/L (38-126); Aspartate Aminotransferase 211 IU/L (14-36); BUN Creatinine Ratio 27.4 (6-22); Bilirubin Total 3.6 mg/dL (0.2-1.3); Blood Urea Nitrogen 23 mg/dL (7-17); Calcium 9.5 mg/dL (8.4-10.2); Carbon Dioxide 27 mmol/L (22-32); Chloride 105 mmol/L (98-107); Estimated Glomerular Filt Rate > 60 mL/min (>60); Globulin 4.9 g/dL (1.7-4.1); Glucose 126 mg/dL (80-110); HEMOLYSIS < 15 (0-50); Potassium 3.4 mmol/L (3.4-5.1); Sodium 141 mmol/L (137-145); Total Protein 8.7 g/dL (6.3-8.2)
== END ==
PROVIDERS: PCP Internal Medicine; Referring Provider Physician Assistant; Visit Provider Physician Assistant
DX: K71.10 Toxic liver disease with hepatic necrosis, without coma (principal)
CPT/HCPCS: 36415; 80053

== ENCOUNTER → 2023-10-31 11:31 | Outpatient (CLI) | payer MEDICARE, OTHER, SELFPAY ==
[2023-10-09 11:20] VITALS: BMI 14.6
[2023-10-31 13:54] LABS: Alanine Aminotransferase 124 IU/L (<35); Albumin Globulin Ratio 0.8 (1.0-2.8); Alkaline Phosphatase 306 U/L (38-126); Aspartate Aminotransferase 114 IU/L (14-36); BUN Creatinine Ratio 23.8 (6-22); Bilirubin Total 2.2 mg/dL (0.2-1.3); Blood Urea Nitrogen 19 mg/dL (7-17); Calcium 9.5 mg/dL (8.4-10.2); Carbon Dioxide 30 mmol/L (22-32); Chloride 102 mmol/L (98-107); Estimated Glomerular Filt Rate > 60 mL/min (>60); Globulin 4.8 g/dL (1.7-4.1); Glucose 81 mg/dL (80-110); HEMOLYSIS < 15 (0-50); Potassium 4.7 mmol/L (3.4-5.1); Sodium 139 mmol/L (137-145); Total Protein 8.8 g/dL (6.3-8.2)
== END ==
PROVIDERS: PCP Internal Medicine; Referring Provider Physician Assistant; Visit Provider Physician Assistant
DX: K71.10 Toxic liver disease with hepatic necrosis, without coma (principal)
CPT/HCPCS: 36415; 80053

== ENCOUNTER → 2023-11-18 10:19 | Outpatient (CLI) | payer MEDICARE, OTHER, SELFPAY ==
[2023-10-09 11:20] VITALS: BMI 14.6
[2023-11-18 12:21] LABS: Alanine Aminotransferase 155 IU/L (<35); Albumin Globulin Ratio 0.9 (1.0-2.8); Alkaline Phosphatase 265 U/L (38-126); Aspartate Aminotransferase 148 IU/L (14-36); BUN Creatinine Ratio 28.7 (6-22); Bilirubin Total 1.2 mg/dL (0.2-1.3); Blood Urea Nitrogen 25 mg/dL (7-17); Calcium 9.7 mg/dL (8.4-10.2); Carbon Dioxide 30 mmol/L (22-32); Chloride 104 mmol/L (98-107); Estimated Glomerular Filt Rate > 60 mL/min (>60); Globulin 4.7 g/dL (1.7-4.1); Glucose 89 mg/dL (80-110); HEMOLYSIS < 15 (0-50); Potassium 5.1 mmol/L (3.4-5.1); Sodium 140 mmol/L (137-145); Total Protein 8.7 g/dL (6.3-8.2)
[2023-11-18 13:42] LABS: TSH w/ Reflex to FT4 1.47 uIU/mL (0.47-4.68)
[2023-11-19 06:52] LABS: Thyroid Peroxidase Antibodies 10 IU/mL (0-34)
== END ==
PROVIDERS: PCP Internal Medicine; Referring Provider Internal Medicine; Visit Provider Internal Medicine
DX: E06.9 Thyroiditis, unspecified (principal); K71.10 Toxic liver disease with hepatic necrosis, without coma
CPT/HCPCS: 36415; 80053; 84443; 86376

== ENCOUNTER → 2023-12-17 09:42 | Outpatient (CLI) | payer MEDICARE, OTHER, SELFPAY ==
[2023-10-09 11:20] VITALS: BMI 14.6
[2023-12-17 10:24] LABS: Alanine Aminotransferase 112 IU/L (<35); Albumin 3.9 g/dL (3.5-5.0); Albumin Globulin Ratio 0.8 (1.0-2.8); Alkaline Phosphatase 203 U/L (38-126); Aspartate Aminotransferase 113 IU/L (14-36); BUN Creatinine Ratio 32.1 (6-22); Bilirubin Total 0.7 mg/dL (0.2-1.3); Blood Urea Nitrogen 25 mg/dL (7-17); Calcium 9.6 mg/dL (8.4-10.2); Carbon Dioxide 28 mmol/L (22-32); Chloride 105 mmol/L (98-107); Estimated Glomerular Filt Rate > 60 mL/min (>60); Globulin 4.7 g/dL (1.7-4.1); Glucose 146 mg/dL (80-110); HEMOLYSIS < 15 (0-50); Potassium 3.8 mmol/L (3.4-5.1); Sodium 139 mmol/L (137-145); Total Protein 8.6 g/dL (6.3-8.2)
== END ==
LOC: LAB 09:44
PROVIDERS: PCP Internal Medicine; Referring Provider Internal Medicine; Visit Provider Internal Medicine
DX: K71.10 Toxic liver disease with hepatic necrosis, without coma (principal)
CPT/HCPCS: 36415; 80053

== ENCOUNTER → 2024-03-12 09:42 | Outpatient (CLI) | payer MEDICARE, OTHER, SELFPAY ==
[2023-10-09 11:20] VITALS: BMI 14.6
[2024-03-12 11:59] LABS: Alanine Aminotransferase 98 IU/L (<35); Alkaline Phosphatase 196 U/L (38-126); Aspartate Aminotransferase 106 IU/L (14-36); Bilirubin Total 0.6 mg/dL (0.2-1.3); Bilirubin Unconjugated 0.1 mg/dL (0.0-1.1); Globulin 4.2 g/dL (1.7-4.1); HEMOLYSIS 18 (0-50); Total Protein 8.2 g/dL (6.3-8.2)
== END ==
PROVIDERS: PCP Internal Medicine; Referring Provider Internal Medicine; Visit Provider Internal Medicine
DX: K71.10 Toxic liver disease with hepatic necrosis, without coma (principal)
CPT/HCPCS: 36415; 80076

== ENCOUNTER → 2024-06-11 10:22 | Outpatient (CLI) | payer MEDICARE, OTHER, SELFPAY ==
[2023-10-09 11:20] VITALS: BMI 14.6
[2024-06-11 12:20] LABS: Hematocrit 38.1 % (36-46); Hemoglobin 12.8 g/dL (12.0-16.0); Mean Corpuscular HGB Conc 33.5 % (30-36); Mean Corpuscular Volume 92.5 fL (80-100); Platelet Count 289 X10^3/uL (150-400); Red Blood Cell Count 4.12 X10^6/uL (4.0-5.2); Red Cell Distribution Width 13.2 % (11.6-14.8); White Blood Cell Count 5.4 X10^3/uL (4.5-11.0)
[2024-06-11 12:49] LABS: Alanine Aminotransferase 61 IU/L (<35); Albumin 4.3 g/dL (3.5-5.0); Albumin Globulin Ratio 1.1 (1.0-2.8); Alkaline Phosphatase 164 U/L (38-126); Aspartate Aminotransferase 65 IU/L (14-36); BUN Creatinine Ratio 30.8 (6-22); Bilirubin Total 0.8 mg/dL (0.2-1.3); Blood Urea Nitrogen 28 mg/dL (7-17); Carbon Dioxide 28 mmol/L (22-32); Chloride 104 mmol/L (98-107); Cholesterol 206 mg/dL (140-199); Estimated Glomerular Filt Rate > 60 mL/min (>60); Glucose 103 mg/dL (80-110); HDL Cholesterol 93 mg/dL (40-60); HEMOLYSIS < 15 (0-50); LDL Cholesterol Calculated 90 mg/dL (<100); Potassium 4.6 mmol/L (3.4-5.1); Sodium 140 mmol/L (137-145); Total Protein 8.3 g/dL (6.3-8.2); Triglycerides 114 mg/dL (35-150)
== END ==
PROVIDERS: PCP Internal Medicine; Referring Provider Internal Medicine; Visit Provider Internal Medicine
DX: E78.2 Mixed hyperlipidemia (principal); I10 Essential (primary) hypertension
CPT/HCPCS: 36415; 80053; 80061; 85027

== ENCOUNTER → 2025-06-23 11:05 | Outpatient (CLI) | payer MEDICARE, OTHER, SELFPAY ==
[2023-10-09 11:20] VITALS: BMI 14.6
[2025-06-23 12:24] LABS: Alanine Aminotransferase 21 IU/L (<35); Albumin 4.2 g/dL (3.5-5.0); Albumin Globulin Ratio 1.2 (1.0-2.8); Alkaline Phosphatase 94 U/L (38-126); Blood Urea Nitrogen 24 mg/dL (7-17); Calcium 9.2 mg/dL (8.4-10.2); Carbon Dioxide 28 mmol/L (22-32); Chloride 103 mmol/L (98-107); Estimated Glomerular Filt Rate > 60 mL/min (>60); Globulin 3.5 g/dL (1.7-4.1); Glucose 92 mg/dL (70-99); HEMOLYSIS < 15 (0-50); Potassium 4.3 mmol/L (3.4-5.1); Sodium 141 mmol/L (137-145); Total Protein 7.7 g/dL (6.3-8.2)
== END ==
PROVIDERS: PCP Internal Medicine; Referring Provider Internal Medicine; Visit Provider Internal Medicine
DX: E78.2 Mixed hyperlipidemia (principal)
CPT/HCPCS: 36415; 80053